=== PATIENT | male | born 1945 | race Caucasian/White ===

== ENCOUNTER 2016-10-11 15:31 | Inpatient (IN) | payer OTHER, MEDICARE ==
[~2016-10-11] VITALS: Ht 182.9 cm; Wt 82.3 kg
[~2016-10-11 15:31] MED LIST: ED B10TA PO; GABA600T PO; HYDR10SO PO; PROS5TAB2 PO; TAMS0.4C67 PO
[2016-10-11 15:41] VITALS: BP 156/88; PULSE 63; RESP 16; TEMP 97.6; O2SAT 99
[2016-10-11] MEDS ORDERED: BACL10TA PO (16:00)
[2016-10-11] MEDS ORDERED: HYDR-4107 PO (16:00)
[2016-10-11] MEDS ORDERED: TAMS5CAP PO (16:00)
[2016-10-11] MEDS ORDERED: PRED10 PO (16:00)
[2016-10-11] MEDS ORDERED: ANTIDEPRESSANT PO (16:00)
[2016-10-11] MEDS ORDERED: SODIUM CHLORIDE 0.9% FLUSH 5 ML FLUSH IVF PRN (16:15)
[2016-10-11] MEDS ORDERED: MORPHINE SULFATE 4 MG/ML INJ IV PUSH ONE (16:15)
[2016-10-11 16:20] VITALS: O2SAT 99
--- NOTE | 2016-10-11 16:20 | PD ---
HPI Chief Complaint: Musculoskeletal Complaint Time Seen by Provider: 15:50 Travel History International Travel<30 days: No Contact w/Intl Traveler<30days: No Traveled to known affect area: No History of Present Illness HPI Patient is a 70-year-old male with history of multiple myeloma who presents the emergency department with complaint of back pain. Patient has been having increasing back pain and on a bone scan to evaluate for other for multiple myeloma he had a lesion in the right upper lobe of the lung. On October [address] of the chest that showed a mass in the right lung that extends into the right T4 vertebral body and had some lytic destruction of the ribs. Patient was scheduled for outpatient MRI on 10/04 that showed a 8.5 x 7.5 right upper lobe lung mass that extends into the T2, T3, T4 vertebral body and into the thoracic spinal canal through the neural foramina displacing the thoracic cord consistent with Pancoast tumor. Patient's pain has been uncontrolled at home. He describes this as a burning type pain, numbness and tingling that radiates from the right back around the right scapular region. Patient's pain is not controlled, he is unable to wait until his appointment with Dr. Lang in 2 days prompting his ER visit. PFSH Past Medical History Cancer: Yes (Multiple myeloma) Cardiovascular Problems: No Chemotherapy: Yes (10/15/15) Diabetes: No Endocrine: No Genitourinary: No Hepatitis: No Hiatal Hernia: No Immune Disorder: No Musculoskeletal: Yes (CHRONIC LEG/FEET PAIN) Neurologic: Yes (Neuropathy) Psychiatric: No Respiratory: Yes (LUNG CANCER) Thyroid Disease: No Influenza Vaccination: No Past Surgical History Abdominal Surgery: No AICD: No Body Medical Devices: METAL - LUMBAR Cardiac Surgery: No Ear Surgery: No Endocrine Surgery: No Eye Surgery: Yes (CATARACTS) Genitourinary Surgery: No Gynecologic Surgery: No Joint Replacement: No Oral Surgery: Yes Pacemaker: No Thoracic Surgery: No Other Surgery: Yes Social History Alcohol Use: No Tobacco Use: No Substance Use: No Allergies-Medications (Allergen,Severity, Reaction): Coded Allergies: No Known Allergies (Unverified , 11/13/15) Reported Meds & Prescriptions Reported Meds & Active Scripts Active Reported [Antidepressant] 1 Tab PO DAILY Prednisone 10 Mg Tab 10 Mg PO DAILY Flomax (Tamsulosin HCl) 0.4 Mg Cap 0.4 Mg PO HS Hydrocodone-Acetaminophen 5-300 Mg Tab 1 Tab PO Q4H PRN Baclofen 10 Mg Tab 10 Mg PO TID Review of Systems Except as stated in HPI: all other systems reviewed are Neg Physical Exam Narrative GENERAL: Well-appearing elderly male in no acute distress SKIN: Warm and dry. HEAD: Normocephalic. EYES: No scleral icterus. No injection or drainage. ENT: Mucous membranes pink and moist. NECK: Supple CARDIOVASCULAR: Regular rate and rhythm. No murmur appreciated. RESPIRATORY: No accessory muscle use. Clear to auscultation. Breath sounds equal bilaterally. GASTROINTESTINAL: Abdomen soft, non-tender, nondistended. MUSCULOSKELETAL: No midline tenderness to palpation of the thoracic or lumbar spine. Patient complains of pain in the right scapular region. No skin changes. NEUROLOGICAL: Awake and alert. No obvious cranial nerve deficits. Motor grossly within normal limits. Sensation intact. Normal speech. PSYCHIATRIC: Appropriate mood and affect; insight and judgment normal. Data Data Last Documented VS Vital Signs Date Time Temp Pulse Resp B/P Pulse Ox O2 Delivery O2 Flow Rate FiO2 10/11/16 15:41 97.6 63 16 156/88 99 Orders Morphine Inj (Morphine Inj) (10/11/16 16:15) Basic Metabolic Panel (Bmp) (10/11/16 16:02) Complete Blood Count With Diff (10/11/16 16:02) Iv Access Insert/Monitor (10/11/16 16:02) Oximetry (10/11/16 16:02) Sodium Chloride 0.9% Flush (Ns Flush) (10/11/16 16:15) Consult Medical Oncology (10/11/16 ) Consult Radiation Oncology (10/11/16 ) Consult Neurosurgery (10/11/16 ) Prothrombin Time / Inr (Pt) (10/11/16 16:08) Act Partial Throm Time (Ptt) (10/11/16 16:08) Vital Signs (Adult) .On admission (10/11/16 16:08) Ct Lung Biopsy (10/11/16 ) Npo After Midnight W/ Po Meds (10/11/16 Dinner) MDM Medical Decision Making Medical Screen Exam Complete: Yes Emergency Medical Condition: Yes Differential Diagnosis 70-year-old male with history of multiple myeloma here with new right upper lobe lung mass that has spread into the posterior rib cage, thoracic vertebral bodies and spinal canal is compressing the spinal cord here with poorly controlled pain. Patient describes a neuropathic type pain that is no doubt from his spinal cord compression, neuroforaminal compression. Narrative Course I spoke with Dr. Lang, who agrees that patient's pain will be best managed with induction chemotherapy, radiation therapy and would like patient admitted for CT-guided biopsy, neurosurgery consultation. Morphine was ordered for pain control, consult for neurosurgery, medical oncology, radiation oncology were placed and patient will be admitted to medicine for further management. Diagnosis Primary Impression: Lung mass Additional Impressions: Thoracic spine tumor Neuropathic pain Admitting Information Admitting Physician Requests: Admit Shanika Diaz MD Oct 11, 2016 16:20
[2016-10-11] MEDS ORDERED: ACETAMINOPHEN 325 MG TAB PO PRN (16:30)
[2016-10-11] MEDS ORDERED: BISACODYL 10 MG SUPP PR PRN (16:30)
[2016-10-11] MEDS ORDERED: NALOXONE HCL 0.4 MG/ML AMP IV PRN (16:30)
[2016-10-11] MEDS ORDERED: ACETAMINOPHEN/HYDROcodone 325 MG/5 MG TAB PO PRN (16:30)
[2016-10-11 16:32] LABS: AUTOMATED NEUTROPHIL # 8.3 TH/MM3 (1.8-7.7); BASOPHIL % 0.1 % (0.0-2.0); EOSINOPHIL % 0.2 % (0.0-4.0); HEMATOCRIT 41.8 % (39.0-51.0); LYMPH % 16.1 % (9.0-44.0); LYMPHOCYTE # 1.8 TH/MM3 (1.0-4.8); MEAN CELL VOLUME 94.5 FL (80.0-100.0); MEAN CORPUSCULAR HEMOGLOBIN 31.4 PG (27.0-34.0); MEAN CORPUSCULAR HGB CONC 33.3 % (32.0-36.0); MONO % 11.8 % (0.0-8.0); NEUT % 71.8 % (16.0-70.0); PLATELET COUNT 242 TH/MM3 (150-450); RED BLOOD COUNT 4.42 MIL/MM3 (4.50-5.90); RED CELL DISTRIBUTION WIDTH 13.6 % (11.6-17.2); WHITE BLOOD COUNT 11.4 TH/MM3 (4.0-11.0)
[2016-10-11 16:38] LABS: CHLORIDE 102 MEQ/L (98-107); HEMO FLAGS AUTO DIFF; POTASSIUM 3.6 MEQ/L (3.5-5.1); SODIUM (NA) 140 MEQ/L (136-145)
[2016-10-11 16:40] LABS: ANION GAP 9 MEQ/L (5-15); BICARBONATE 29.1 MEQ/L (21.0-32.0)
[2016-10-11 16:41] LABS: APTT (PATIENT) 24.6 SEC (24.3-30.1); BLOOD UREA NITROGEN 15 MG/DL (7-18); PROTHROMBIN TIME - PATIENT 10.7 SEC (9.8-11.6)
[2016-10-11 16:44] LABS: GLOMERULAR FILTRATION RATE 121 ML/MIN (>89)
[2016-10-11 16:46] LABS: ALT (GPT) 17 U/L (12-78); AST (GOT) 19 U/L (15-37)
[2016-10-11 16:48] LABS: TOTAL BILIRUBIN ADULT 0.4 MG/DL (0.2-1.0)
[2016-10-11 16:49] LABS: ALKALINE PHOSPHATASE 61 U/L (45-117)
[2016-10-11] MEDS: SODIUM CHLOR 0.9% 1000 ML INJ 1,000 ML IV SCH (16:53)
[2016-10-11 17:32] LABS: BANDS 5 % (0-6); NEUTROPHIL # MANUAL DIFF 8.7 TH/MM3 (1.8-7.7); POLYS (SEG NEUTROPHILS) 71 % (16-70); WBC DIFF SAMPLE 100
[2016-10-11 17:33] LABS: PLATELET ESTIMATE SMEAR NORMAL (NORMAL); PLATELET MORPHOLOGY NORMAL (NORMAL); SCAN/DIFF FINAL DIFF MANUAL
[2016-10-11] MEDS: BACLOFEN 10 MG TAB PO SCH (17:42)
[2016-10-11] MEDS ORDERED: fentaNYL 25 MCG/HR PATCH TD SCH (18:00)
[2016-10-11 18:09] VITALS: BP 171/78; PULSE 63; RESP 18; O2SAT 96
[2016-10-11] MEDS: PANTOPRAZOLE SODIUM 40 MG VIAL IV PUSH SCH (18:18)
[2016-10-11] MEDS: DEXAMETHASONE SOD PHOS 4 MG/ML VIAL IV PUSH SCH ×2 (18:18→23:22)
[2016-10-11] MEDS: GABAPENTIN 400 MG CAP PO SCH (18:43)
[2016-10-11 19:15] VITALS: BP 141/77; PULSE 68; RESP 18; TEMP 97.7; O2SAT 98
[2016-10-11] MEDS: ACETAMINOPHEN/HYDROcodone 325 MG/5 MG TAB PO PRN ×2 (19:45→23:23)
[2016-10-11 21:00] VITALS: PULSE 65
[2016-10-11] MEDS: SODIUM CHLORIDE 0.9% FLUSH 5 ML FLUSH FLUSH SCH (21:00)
[2016-10-11] MEDS: TEMAZEPAM 15 MG CAP PO PRN (21:08)
[2016-10-11] MEDS: TAMSULOSIN HCL 0.4 MG CAP PO SCH (21:08)
[2016-10-11] MEDS: MORPHINE SULFATE 4 MG/ML INJ IV PRN (21:09)
[2016-10-11 21:30] VITALS: BP 142/71; PULSE 61; RESP 18; TEMP 97.1; O2SAT 98
[2016-10-12] VITALS (11 sets, daily range): BP systolic 101–136; BP diastolic 54–77; PULSE 55–67; RESP 16–18; TEMP 96.1–98.4; O2SAT 93–100
[2016-10-12] MEDS: MORPHINE SULFATE 4 MG/ML INJ IV PRN ×2 (00:05→23:20)
[2016-10-12] MEDS: DEXAMETHASONE SOD PHOS 4 MG/ML VIAL IV PUSH SCH ×4 (06:15→23:24)
[2016-10-12] MEDS: ACETAMINOPHEN/HYDROcodone 325 MG/5 MG TAB PO PRN (06:15)
[2016-10-12] MEDS: SODIUM CHLOR 0.9% 1000 ML INJ 1,000 ML IV SCH ×2 (06:15→16:23)
[2016-10-12] MEDS: SODIUM CHLORIDE 0.9% FLUSH 5 ML FLUSH FLUSH SCH ×2 (08:55→21:00)
[2016-10-12] MEDS: GABAPENTIN 400 MG CAP PO SCH ×3 (08:55→16:35)
[2016-10-12] MEDS: BACLOFEN 10 MG TAB PO SCH ×3 (08:55→16:36)
[2016-10-12] MEDS ORDERED: INFLUENZA VIRUS VACCINE (QUADRIVALENT) 0.5 ML SYR IM ONE (09:00)
--- NOTE | 2016-10-12 09:22 | MB ---
cc: SIMON HICKEY M.D. DATE OF CONSULTATION 10/11/2016 REASON FOR CONSULTATION Consult requested by Dr. Vega, ER physician, for evaluation of Pancoast tumor. HISTORY OF PRESENT ILLNESS This is a 70-year-old very pleasant male. Recently he transferred his oncology care to me from Dr. Poe. I saw him for the first time on September 17 for followup of multiple myeloma. The patient was diagnosed with multiple myeloma in June 2013. He has lambda light chain multiple myeloma. He was treated with Velcade and Decadron x four cycles with an excellent response. He was kept on observation. Subsequently, the patient had developed neuropathy and he had a biopsy of the sural nerve at [facility] in [place]. This showed amyloidosis. The patient was treated with Alkeran and Prednisone in July 2015. This was continued up until last year July, the Alkeran was not available on the market. He was placed on Cytoxan and Decadron which did not work for his myeloma. When I saw him on September 17, he told me that the Alkeran is available on the market again and I wrote him a prescription for Alkeran and prednisone which he start taking around September 20. I had ordered the skeletal survey for myeloma followup. There were no lytic lesions noted. However, incidentally showed a right upper lobe lung mass. I had ordered the CT scan of the chest. The patient had an appointment with me last week Tuesday with a followup of a CT scan. Unfortunately, the CT scan of the chest was cancelled by insurance, therefore, he cancelled his appointment with me as well. The patient had an MRI of the spine which showed a large right upper lobe lung mass. He subsequently had a CT scan of the chest as well which showed a Pancoast tumor. The patient had an appointment with me the day after tomorrow in our [place] office. The patient came to the emergency room complaining of severe pain. His pain is quite bad. He has been taking narcotics which are not controlling his pain. When he came to the emergency room, Dr. Vega evaluated the case. She had contacted me. I advised her the patient should be admitted to the hospital for further workup. He would need neurosurgery and radiation oncology consult. The patient is transferred to [facility] from [facility]. I am seeing him now on the floor. The patient has been complaining of neck pain. He has peripheral neuropathy. He is having difficulty walking. He has been lately complaining of weakness of his lower legs. The rest of the review of systems is negative. PAST MEDICAL HISTORY 1. Arthritis 2. BPH 3. COPD 4. Diabetes mellitus 5. Hemorrhoids 6. Hypercholesterolemia 7. Osteopenia 8. Multiple myeloma 9. Colon cancer and now he has possible lung cancer. PAST SURGICAL HISTORY 1. Cataract 2. colonoscopy 3. Nasal surgery 4. Lumbar fusion ALLERGIES None MEDICATIONS Please see EMR. FAMILY HISTORY Mother from [facility]. Father from bladder cancer. The patient has four brothers, one alive, three . One brother from lung cancer. Another brother from [place] and a third brother from metastatic cancer of unknown type. The patient has two sisters, one sons and one daughter all alive and well. SOCIAL HISTORY The patient is . 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 He used to smoke cigarettes one pack a day for 20 years, quit two years ago. He does not drink alcohol. PHYSICAL EXAM This is a well-developed, well-nourished male in no apparent distress. VITAL SIGNS: Temperature 97.2, heart rate 68, blood pressure 141/77. HEENT: PERRLA, EOMI, anicteric. No oral lesions are noted. NECK: Supple. There is no cervical, supraclavicular or axillary lymphadenopathy noted. LUNGS: Clear. No wheezing, rhonchi or rales. HEART: Regular rate and rhythm. ABDOMEN: Soft and nontender. No hepatosplenomegaly. EXTREMITIES: No pedal edema. NEUROLOGIC: Awake, alert, and oriented times threes. SKIN: No significant lesions are noted. ASSESSMENT 1. Multiple myeloma currently on Alkeran and prednisone therapy. 2. Right upper lobe lung mass infiltrating the cervical spine. This is most likely consistent with lung cancer. PLAN I have reviewed his available records and I have had an extensive discussion with the patient and his son and daughter. The patient has a large right upper lobe lung mass noted on the CT of the chest, as well as MRI of the spine. He had a CT of the chest last week Tuesday which showed a mass in the right upper lobe of the lung that extends into the right T4 vertebral body and has some lytic destruction of the ribs. He had an MRI of the spine on October 04 that shows an 8.5 x 7.5 cm right upper lobe lung mass that extends into the T2, T3 and T4 vertebral body and into the thoracic spinal canal through the neural foramina displacing a thoracic cord consistent with Pancoast tumor. The patient has been on pain medications which are not controlling his pain and he is now appropriately admitted to the hospital for pain management as well as workup for the Pancoast tumor. I will request invasive radiologist for CT-guided core needle biopsy of the right upper lobe lung mass for tissue diagnosis. The patient will need radiation oncology consult as well as neurosurgical consult for further evaluation. The patient was started on Decadron 4 mg IV q6 in the emergency room. Once we have the tissue diagnosis, then we will discuss with the patient and the family regarding the treatment plan. The patient will need a PET scan as an outpatient and an MRI of the brain to stage his lung cancer. Further recommendations to follow. Thank you for asking my opinion. MD XAVI Singletary/HEATH /9:13 PM /9:08 AM MTDFidelia
--- NOTE | 2016-10-12 09:32 | HHI.HP ---
HPI Service [facility] Primary Care Physician Mk Dhillon MD Admission Diagnosis right upper lobe lung mass extending into T spine/canal Diagnoses: Travel History International Travel<30 Days: No Contact w/Intl Traveler <30 Da: No Traveled to Known Affected Are: No History of Present Illness 70-year-old male with a medical history significant for multiple myeloma undergoing treatment, amyloidosis, osteoarthritis who presented to the emergency room with intractable pain of the right shoulder extending all the way to his lower back. He described the pain as severe and debilitating. The patient had an MRI which showed an 8 cm epidural extension. There is also a newly discovered right upper lobe lung mass extending into the thoracic vertebrae with lytic lesions. Given the patient's intractable pain and new findings of the lung mass. He is being admitted for pain control and further workup with oncology and neurosurgery consultation. Review of Systems Constitutional: DENIES: Fever, Chills Endocrine: DENIES: Polyuria Eyes: DENIES: Blurred vision Respiratory: DENIES: Cough, Shortness of breath Cardiovascular: DENIES: Chest pain Genitourinary: DENIES: Dysuria Musculoskeletal: COMPLAINS OF: Joint pain, Muscle aches, Back pain Neurologic: DENIES: Localized weakness Except as stated in HPI: all other systems reviewed are Neg Past Family Social History Past Medical History Multiple myeloma, undergoing treatment with chemotherapy and steroids. Amyloidosis Osteoarthritis Hyperlipidemia Hemorrhoids. BPH Past Surgical History Hemorrhoidectomy in 1985 Lumbar fusion in 1993 Nose surgery Reported Medications Reported Meds & Active Scripts Active Reported [Antidepressant] 1 Tab PO DAILY Prednisone 10 Mg Tab 10 Mg PO DAILY Flomax (Tamsulosin HCl) 0.4 Mg Cap 0.4 Mg PO HS Hydrocodone-Acetaminophen 5-300 Mg Tab 1 Tab PO Q4H PRN Baclofen 10 Mg Tab 10 Mg PO TID Allergies: Coded Allergies: No Known Allergies (Unverified , 11/13/15) Family History Father is . He has a history of bladder cancer Patient has 2 brothers, one of them with history of lung cancer. Social History Patient smoke 1 pack per day for 50 years but he quit 2 years ago. He denies alcohol or illicit drug use. Physical Exam Vital Signs Vital Signs Date Time Temp Pulse Resp B/P Pulse Ox O2 Delivery O2 Flow Rate FiO2 10/12/16 08:00 96.7 58 16 121/65 96 10/12/16 05:00 97.1 58 18 122/77 100 10/12/16 00:00 97.3 60 18 136/71 100 10/11/16 21:30 97.1 61 18 142/71 98 10/11/16 21:00 65 10/11/16 19:15 18 10/11/16 19:15 97.7 68 18 141/77 98 Room Air 10/11/16 18:09 63 18 171/78 96 Room Air 10/11/16 16:20 99 Room Air 10/11/16 15:41 97.6 63 16 156/88 99 Physical Exam GENERAL: This is a well-nourished, well-developed patient, in no apparent distress. SKIN: No rashes, ecchymoses or lesions. Cool and dry. HEAD: Atraumatic. Normocephalic. No temporal or scalp tenderness. EYES: Pupils equal round and reactive. Extraocular motions intact. No scleral icterus. No injection or drainage. ENT: Nose without bleeding, purulent drainage or septal hematoma. Throat without erythema, tonsillar hypertrophy or exudate. Uvula midline. Airway patent. NECK: Trachea midline. No JVD or lymphadenopathy. Supple, nontender, no meningeal signs. CARDIOVASCULAR: Regular rate and rhythm without murmurs, gallops, or rubs. RESPIRATORY: Clear to auscultation. Breath sounds equal bilaterally. No wheezes , rales, or rhonchi. GASTROINTESTINAL: Abdomen soft, non-tender, nondistended. No hepato-splenomegaly , or palpable masses. No guarding. MUSCULOSKELETAL: Extremities without clubbing, cyanosis, or edema. Right upper extremity 4 out of 5 strength. All other extremities 5 out of 5. NEUROLOGICAL: Awake and alert. Normal speech. Laboratory Laboratory Tests Test 10/11/16 16:18 White Blood Count 11.4 Red Blood Count 4.42 Hemoglobin 13.9 Hematocrit 41.8 Mean Corpuscular Volume 94.5 Mean Corpuscular Hemoglobin 31.4 Mean Corpuscular Hemoglobin 33.3 Concent Red Cell Distribution Width 13.6 Platelet Count 242 Mean Platelet Volume 8.6 Neutrophils (%) (Auto) 71.8 Lymphocytes (%) (Auto) 16.1 Monocytes (%) (Auto) 11.8 Eosinophils (%) (Auto) 0.2 Basophils (%) (Auto) 0.1 Neutrophils # (Auto) 8.3 Lymphocytes # (Auto) 1.8 Monocytes # (Auto) 1.3 Eosinophils # (Auto) 0.0 Basophils # (Auto) 0.0 CBC Comment AUTO DIFF Differential Total Cells 100 Counted Neutrophils % (Manual) 71 Band Neutrophils % 5 Lymphocytes % 12 Monocytes % 12 Neutrophils # (Manual) 8.7 Differential Comment FINAL DIFF MANUAL Platelet Estimate NORMAL Platelet Morphology Comment NORMAL Red Cell Morphology Comment NORMAL Prothrombin Time 10.7 Prothromb Time International 1.0 Ratio Activated Partial 24.6 Thromboplast Time Sodium Level 140 Potassium Level 3.6 Chloride Level 102 Carbon Dioxide Level 29.1 Anion Gap 9 Blood Urea Nitrogen 15 Creatinine 0.65 Estimat Glomerular Filtration 121 Rate Random Glucose 88 Calcium Level 9.8 Total Bilirubin 0.4 Aspartate Amino Transf 19 (AST/SGOT) Alanine Aminotransferase 17 (ALT/SGPT) Alkaline Phosphatase 61 Total Protein 7.3 Albumin 3.8 Result Diagram: 10/11/16 1618 10/11/16 1618 Assessment and Plan Assessment and Plan 70 year-old male with: Pancoast tumor: CT of the chest outpatient showed a right upper lobe lung mass extending into the vertebral body with some lytic destruction of the ribs. Outpatient MRI of the spine with reports of a 8 x 7 cm RUL lung mass that extends into the T2, T3 and T4 vertebral body and into the thoracic spinal canal through the neural foramina displacing a thoracic cord consistent with Pancoast tumor. - Appreciate oncology and neurosurgery following. Plan for CT-guided biopsy of the right upper lung mass - Pain is better controlled on Decadron, gabapentin, baclofen, Lortab, fentanyl , and morphine IV as needed. Continue to monitor. Multiple myeloma: Followed by oncology. He was restarted on Alkeran and prednisone in August. 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 Continue home medications as indicated. He denies any history of diabetes. Physician Certification 2 Midnight Certification Type: Admission for Inpatient Services Order for Inpatient Services The services are ordered in accordance with Medicare regulations or non- Medicare payer requirements, as applicable. In the case of services not specified as inpatient-only, they are appropriately provided as inpatient services in accordance with the 2-midnight benchmark. Estimated LOS (days): 3 days is the estimated time the patient will need to remain in the hospital, assuming treatment plan goals are met and no additional complications. Post-Hospital Plan: Not yet determined Ekaterina Aguirre MD Oct 12, 2016 09:32
--- NOTE | 2016-10-12 10:41 | PD.ONC.PN ---
Subjective Subjective Remarks Afebrile overnight. Patient states pain is well controlled today. He is eager to know what the plan is for biopsy. Objective Data Date Time Temp Pulse Resp B/P Pulse Ox O2 Delivery O2 Flow Rate FiO2 10/12/16 08:00 96.7 58 16 121/65 96 10/12/16 05:00 97.1 58 18 122/77 100 10/12/16 00:00 97.3 60 18 136/71 100 10/11/16 21:30 97.1 61 18 142/71 98 10/11/16 21:00 65 10/11/16 19:15 18 10/11/16 19:15 97.7 68 18 141/77 98 Room Air 10/11/16 18:09 63 18 171/78 96 Room Air 10/11/16 16:20 99 Room Air 10/11/16 15:41 97.6 63 16 156/88 99 10/12/16 10/12/16 10/12/16 07:00 15:00 23:00 Intake Total 430 ml Output Total 900 ml Balance -900 ml 430 ml Result Diagram: 10/11/16 1618 10/11/16 1618 Laboratory Results Laboratory Tests Test 10/11/16 16:18 White Blood Count 11.4 TH/MM3 Red Blood Count 4.42 MIL/MM3 Hemoglobin 13.9 GM/DL Hematocrit 41.8 % Mean Corpuscular Volume 94.5 FL Mean Corpuscular Hemoglobin 31.4 PG Mean Corpuscular Hemoglobin 33.3 % Concent Red Cell Distribution Width 13.6 % Platelet Count 242 TH/MM3 Mean Platelet Volume 8.6 FL Neutrophils (%) (Auto) 71.8 % Lymphocytes (%) (Auto) 16.1 % Monocytes (%) (Auto) 11.8 % Eosinophils (%) (Auto) 0.2 % Basophils (%) (Auto) 0.1 % Neutrophils # (Auto) 8.3 TH/MM3 Lymphocytes # (Auto) 1.8 TH/MM3 Monocytes # (Auto) 1.3 TH/MM3 Eosinophils # (Auto) 0.0 TH/MM3 Basophils # (Auto) 0.0 TH/MM3 CBC Comment AUTO DIFF Differential Total Cells 100 Counted Neutrophils % (Manual) 71 % Band Neutrophils % 5 % Lymphocytes % 12 % Monocytes % 12 % Neutrophils # (Manual) 8.7 TH/MM3 Differential Comment FINAL DIFF MANUAL Platelet Estimate NORMAL Platelet Morphology Comment NORMAL Red Cell Morphology Comment NORMAL Prothrombin Time 10.7 SEC Prothromb Time International 1.0 RATIO Ratio Activated Partial 24.6 SEC Thromboplast Time Sodium Level 140 MEQ/L Potassium Level 3.6 MEQ/L Chloride Level 102 MEQ/L Carbon Dioxide Level 29.1 MEQ/L Anion Gap 9 MEQ/L Blood Urea Nitrogen 15 MG/DL Creatinine 0.65 MG/DL Estimat Glomerular Filtration 121 ML/MIN Rate Random Glucose 88 MG/DL Calcium Level 9.8 MG/DL Total Bilirubin 0.4 MG/DL Aspartate Amino Transf 19 U/L (AST/SGOT) Alanine Aminotransferase 17 U/L (ALT/SGPT) Alkaline Phosphatase 61 U/L Total Protein 7.3 GM/DL Albumin 3.8 GM/DL Administered Medications Medications (Trade) Dose Ordered Sig/Garry Route PRN Reason Start Time Stop Time Status Last Admin Dose Admin Sodium Chloride (NS 1000 ml Inj) 1,000 ml @ 83 mls/hr Q12H3M IV 10/11/16 16:17 10/12/16 06:15 IV Flush (NS Flush) 2 ml BID FLUSH 10/11/16 21:00 10/12/16 08:55 Temazepam (Restoril) 15 mg HS PRN PO INSOMNIA 10/11/16 16:30 10/11/16 21:08 Fentanyl (Duragesic 25 Mcg Patch.72 Hr) 1 patch Q3D TD 10/11/16 18:00 10/11/16 17:46 Acetaminophen/ Hydrocodone Bitart (Montgomery 5-325 Mg) 2 tab Q4H PRN PO PAIN SCALE 6 TO 10 10/11/16 16:30 10/12/16 06:15 Morphine Sulfate (Morphine Inj) 2 mg Q3H PRN IV BREAKTHROUGH PAIN 10/11/16 16:45 10/12/16 00:05 Baclofen (Lioresal) 10 mg TID PO 10/11/16 18:00 10/12/16 08:55 Tamsulosin HCl (Flomax) 0.4 mg HS PO 10/11/16 21:00 10/11/16 21:08 Dexamethasone Sodium Phosphate (Decadron Inj) 4 mg Q6HR IV PUSH 10/11/16 18:00 10/12/16 06:15 Pantoprazole Sodium (Protonix Inj) 40 mg Q24H IV PUSH 10/11/16 18:00 10/11/16 18:18 Gabapentin (Neurontin) 400 mg TID PO 10/11/16 18:00 10/12/16 08:55 Objective Remarks GENERAL: Elderly male, lying in bed, resting. SKIN: Warm and dry. HEAD: Normocephalic. EYES: No injection or drainage. NECK: Supple, trachea midline. EXTREMITIES: No cyanosis MUSCULOSKELETAL: Adequate muscle tone. NEUROLOGICAL: awake and alert, normal speech. Assessment/Plan Problem List: (1) Lung mass Status: Acute Plan: --Right upper lobe lung mass infiltrating the cervical spine. most consistent with lung cancer. --CT chest, last week showed a mass in the right upper lobe of the lung that extends into the right T4 vertebral body and has some lytic destruction of the ribs. --MRI spine on October 04 showed 8.5 x 7.5 cm RUL lung mass that extends into the T2, T3 and T4 vertebral body and into the thoracic spinal canal through the neural foramina displacing a thoracic cord consistent with Pancoast tumor. --awaiting CT guided core needle biopsy of RUL lung mass for tissue diagnosis --Radiation oncology consulted --Neurosurgery consulted --on Decadron 4mg IV q6 --will need PET scan outpatient as well as MRI brain for staging. (2) Multiple myeloma Status: Acute Plan: -->currently on Alkeran + Prednisone History: --first diagnosed in June 2013 --+lambda light chain MM --treated with Velcade + Decadron x 4 cycles -- Subsequently, developed neuropathy-->biopsy of the sural nerve showed amyloidosis. --treated with Alkeran and Prednisone from 07/2015 to 07/2016, then Alkeran d/c from market. --started on Cytoxan and Decadron--did not work --08/2016: resumed Alkeran + prednisone (3) Neuropathic pain Status: Acute Plan: --currently on Fentanyl 25mcg + Montgomery for breakthrough pain + Gabapentin + Baclofen Assessment 70y/o with suspected Pancoast tumor h/o Multiple myeloma h/o Arthritis BPH COPD Diabetes mellitus Hemorrhoids Hypercholesterolemia Osteopenia Colon cancer and now he has possible lung cancer. Attending Statement pain is better, s/p Bx RUL lung mass., path is pending. 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 d/w DR Carpenter regarding XRT and chemo. NS input noted. Most likely he will need palliative resection of the tumor pushing the cord. will D/W Dr Lewis. The exam, history, and the medical decision-making described in the above note were completed with the assistance of the mid-level provider. I reviewed and agree with the findings presented. I attest that I had a [id number] encounter with the patient on the same day, and personally performed and documented my assessment and findings in the medical record. Ana Cristina Starkey Oct 12, 2016 10:41 Alia Lang MD Oct 12, 2016 20:55
--- NOTE | 2016-10-12 11:55 | PD.CONS ---
HPI Service Neurosurgery Consult Requested By ED Reason for Consult Pancoast tumor Primary Care Physician Mk Dhillon MD History of Present Illness 70 yr old with hx of multiple myeloma and amyloidosis with severe spondylosis and peripheral neuropathy presented to the ED with severe pain in the right shoulder radiating to the face and right arm. He had an MRI of the thoracic spine from 1 week ago ordered by his new oncologist Dr Lang which showed a large 7 to 8 cm from T2 to T4 with epidural and pleural extension. He is neurologically stable with no miosis, no ptosis, no new arm numbness and no new weakness in the hip flexors but the pain was so severe that he could not eat or get OOB. He is now improved on decadron and gabapentin. Review of Systems Constitutional: COMPLAINS OF: Change in appetite, DENIES: Diaphoretic episodes , Fatigue, Fever, Weight gain, Weight loss, Chills, Dizziness, Night Sweats Endocrine: DENIES: Heat/cold intolerance, Polydipsia, Polyuria, Polyphagia Eyes: DENIES: Blurred vision, Diplopia, Eye inflammation, Eye pain, Vision loss , Photosensitivity, Double Vision Ears, nose, mouth, throat: DENIES: Tinnitus, Hearing loss, Vertigo, Nasal discharge, Oral lesions, Throat pain, Hoarseness, Ear Pain, Running Nose, Epistaxis, Sinus Pain, Toothache, Odynophagia Respiratory: DENIES: Apneas, Cough, Snoring, Wheezing, Hemoptysis, Sputum production, Shortness of breath Cardiovascular: COMPLAINS OF: Chest pain, DENIES: Palpitations, Syncope, Dyspnea on Exertion, PND, Lower Extremity Edema, Orthopnea, Claudication Gastrointestinal: DENIES: Abdominal pain, Black stools, Bloody stools, Constipation, Diarrhea, Nausea, Vomiting, Difficulty Swallowing, Anorexia Genitourinary: DENIES: Sexual dysfunction, Urinary frequency, Urinary incontinence, Urgency, Hematuria, Dysuria, Nocturia, Penile Discharge, Testicular Pain, Testicular Swelling Musculoskeletal: COMPLAINS OF: Neck pain Integumentary: DENIES: Abnormal pigmentation, Nail changes, Pruritus, Rash Hematologic/lymphatic: DENIES: Bruising, Lymphadenopathy Immunologic/allergic: DENIES: Eczema, Urticaria Neurologic: COMPLAINS OF: Abnormal gait (wheelchair bound from the neuropathy and amyloidosis), Paresthesias, Poor Balance Psychiatric: DENIES: Anxiety, Confusion, Mood changes, Depression, Hallucinations, Agitation, Suicidal Ideation, Homicidal Ideation, Delusions Past Family Social History Allergies: Coded Allergies: No Known Allergies (Unverified , 11/13/15) Past Medical History MM light chain diagnosed in 2012, responded well after diagnosis with velcade and decadron, has been off chemo for the past 3 months due to unsuccessful response to alternate chemo with cytoxan and decadron Amyloidosis diagnosed with sural nerve bx in 2014, has bee crippling. Past Surgical History Spinal fusion Reported Medications Reported Meds & Active Scripts Active Reported [Antidepressant] 1 Tab PO DAILY Prednisone 10 Mg Tab 10 Mg PO DAILY Flomax (Tamsulosin HCl) 0.4 Mg Cap 0.4 Mg PO HS Hydrocodone-Acetaminophen 5-300 Mg Tab 1 Tab PO Q4H PRN Baclofen 10 Mg Tab 10 Mg PO TID Family History Brother ad lung CA Social History , lives with family, quit tob 2 yrs ago Physical Exam Vital Signs Vital Signs Date Time Temp Pulse Resp B/P Pulse Ox O2 Delivery O2 Flow Rate FiO2 10/12/16 08:00 96.7 58 16 121/65 96 10/12/16 05:00 97.1 58 18 122/77 100 10/12/16 00:00 97.3 60 18 136/71 100 10/11/16 21:30 97.1 61 18 142/71 98 10/11/16 21:00 65 10/11/16 19:15 18 10/11/16 19:15 97.7 68 18 141/77 98 Room Air 10/11/16 18:09 63 18 171/78 96 Room Air 10/11/16 16:20 99 Room Air 10/11/16 15:41 97.6 63 16 156/88 99 Physical Exam Pleasant gentleman, oriented x 3, pupils 2mm equal, no enophthalmos, no meiosis , no dryness of the right eye, face symmetric, attentiona nd mood appropriate, Neck supple, Dense numbness in the hands and feet from neuropathy, otherwise sensory change from T2 to T6 anterior chest on the right only Motor 4/5 in the delt/bic/tri, 5/5 in both hip flexors, bridger foot drop lond standing, weakness of IO long standing. Skin dry, abrasions from braces on both shins, hyporeflexic throughout, no clonus, no spasticity. abd soft NT, RRR, lungs CTA Laboratory Laboratory Tests Test 10/11/16 16:18 White Blood Count 11.4 Red Blood Count 4.42 Hemoglobin 13.9 Hematocrit 41.8 Mean Corpuscular Volume 94.5 Mean Corpuscular Hemoglobin 31.4 Mean Corpuscular Hemoglobin 33.3 Concent Red Cell Distribution Width 13.6 Platelet Count 242 Mean Platelet Volume 8.6 Neutrophils (%) (Auto) 71.8 Lymphocytes (%) (Auto) 16.1 Monocytes (%) (Auto) 11.8 Eosinophils (%) (Auto) 0.2 Basophils (%) (Auto) 0.1 Neutrophils # (Auto) 8.3 Lymphocytes # (Auto) 1.8 Monocytes # (Auto) 1.3 Eosinophils # (Auto) 0.0 Basophils # (Auto) 0.0 CBC Comment AUTO DIFF Differential Total Cells 100 Counted Neutrophils % (Manual) 71 Band Neutrophils % 5 Lymphocytes % 12 Monocytes % 12 Neutrophils # (Manual) 8.7 Differential Comment FINAL DIFF MANUAL Platelet Estimate NORMAL Platelet Morphology Comment NORMAL Red Cell Morphology Comment NORMAL Prothrombin Time 10.7 Prothromb Time International 1.0 Ratio Activated Partial 24.6 Thromboplast Time Sodium Level 140 Potassium Level 3.6 Chloride Level 102 Carbon Dioxide Level 29.1 Anion Gap 9 Blood Urea Nitrogen 15 Creatinine 0.65 Estimat Glomerular Filtration 121 Rate Random Glucose 88 Calcium Level 9.8 Total Bilirubin 0.4 Aspartate Amino Transf 19 (AST/SGOT) Alanine Aminotransferase 17 (ALT/SGPT) Alkaline Phosphatase 61 Total Protein 7.3 Albumin 3.8 Result Diagram: 10/11/16 1618 10/11/16 1618 Imaging Outside MRI sows a right lung mass with epidural extension to the cord from T2 to T4, as well as pleural invasion. Spinal stenosis is noted at C3/4. The cord is displaced posteriorly and to the left at T3. Foraminal invasion is seen at T2 , T3, T4. There is no signal change in the discs or in the cord. Assessment and Plan Diagnosis: (1) Thoracic spine tumor Plan: A biopsy is planned today. If the lesion is radiosensitive, IMRT is planned. If the lesion is a lung CA or a sarcoma, plan resection of the epidural mass prior to RT and chemotherapy. No instability is present at this time and his pain is controlled with no new sympathetic or brachial plexus deficit. His risk of falls is high from the neuropathy itself and fall precautions are to be maintained. ICD Code: D49.2 (2) Neuropathic pain Plan: Amyloidosis, has been crippling, is the reason he is wheelchair bound at this time. ICD Code: M79.2 Zenon Aldrich Oct 12, 2016 11:55
[2016-10-12] MEDS ORDERED: LIDOCAINE 1%/EPINEPHrine 1:100,000 SOLN 20 ML VIAL ONE (12:05)
[2016-10-12] MEDS ORDERED: fentaNYL CITRATE 250 MCG/5 ML AMP ONE (12:16)
[2016-10-12] MEDS ORDERED: MIDAZOLAM HCL 5 MG/5 ML VIAL ONE (12:16)
--- NOTE | 2016-10-12 14:56 | RADRPT ---
EXAM DATE/TIME: 10/12/2016 14:32 [facility] COMPARISON: CT NEEDLE BIOPSY LUNG, RIGHT, October 12, 2016, 13:01. INDICATIONS : Post lung biopsy. MEDICAL HISTORY : Ex-smoker. SURGICAL HISTORY : None. ENCOUNTER: Initial ACUITY: 1 day PAIN SCORE: 0/10 LOCATION: Right chest FINDINGS: Portable upright expiratory view of the chest demonstrates no pneumothorax following right upper lobe pleural-based Mass biopsy. There is opacity at the apex of the right hemithorax corresponding with t he mass. CONCLUSION: No pneumothorax is present following recent right lung/pleural based mass biopsy. Perry Erazo MD on October 12, 2016 at 14:50 Board Certified Radiologist. This report was verified electronically.
--- NOTE | 2016-10-12 15:08 | RADRPT ---
EXAM DATE/TIME: 10/12/2016 13:01 [facility] COMPARISON: No previous studies available for comparison. Correlated with chest CT performed at [facility] on 10/08/16. INDICATIONS : Right lung mass SEDATION TIME: 20 minutes BIOPSY SITE: Right lung MEDICATION(S): 1.) 3 mg midazolam (Versed) IV 2.) 150 mcg fentanyl (Sublimaze) IV DEVICE(S): 1.) 17 gauge Temno core biopsy needle 2.) 18 gauge Temno core biopsy needle MEDICAL HISTORY : Chronic obstructive pulmonary disease. Diabetes mellitus type 1. Carcinoma, colon. Multiple myeloma SURGICAL HISTORY : None. ENCOUNTER: Initial ACUITY: 1 day PAIN SCORE: 0/10 LOCATION: Right chest A total of five core specimen(s) were obtained and sent to the laboratory for pathologic evaluation. PROCEDURE: 1. CT guided lung biopsy. 2. Conscious sedation with continuous EKG and oximetry monitoring. 3. EKG and oximetry remained stable throughout the procedure. Prior to the procedure informed consent was obtained. Any appropriate prior imaging studies were rev iewed. The site was prepped in a sterile fashion. Full sterile technique was used, including cap, mask, gabriela rile gloves and gown and a large sterile sheet. Hand hygiene and 2% chlorhexidine and/or betadine/al cohol prep was utilized per protocol for cutaneous antisepsis. The skin and subcutaneous tissues wer e infiltrated with local anesthetic solution. With CT guidance the pleural based mass at the right upper lobe was localized. Biopsy was performed u sing the prescribed needle as above. Adequate hemostasis was obtained with compression at the punctu re site. Follow-up CT scan reveals no pneumothorax or acute abnormality. Conscious sedation was performed with the prescribed dosages and duration as above. The patient lacy ated the procedure well and there were no complications. EKG and oximetry remained stable throughout the procedure. The patient was sent to Radiology Outpatient Unit in stable condition. CONCLUSION: Uncomplicated CT guided biopsy of the mass at the apex of the right hemithorax which may be pleural o r parenchymal. Perry Erazo MD on October 12, 2016 at 15:04 Board Certified Radiologist. This report was verified electronically.
--- NOTE | 2016-10-12 16:16 | RADRPT ---
EXAM DATE/TIME: 10/12/2016 15:42 [facility] COMPARISON: CT NEEDLE BIOPSY LUNG, RIGHT, October 12, 2016, 13:01. CHEST EXPIRATION ONLY, October 12, 2016, 14 :32. INDICATIONS : Evaluate post lung biopsy. MEDICAL HISTORY : None. SURGICAL HISTORY : None. ENCOUNTER: Initial ACUITY: 1 day PAIN SCORE: 0/10 LOCATION: chest FINDINGS: Single portable expiration view of the chest shows no pneumothorax. Right paratracheal stripe mass ag ain noted. No effusions. Left lung is clear. Heart is normal in size. The degenerative thoracic spine . CONCLUSION: No pneumothorax or effusion following lung biopsy. Bj Mendieta Jr., MD on October 12, 2016 at 16:12 Board Certified Radiologist. This report was verified electronically.
[2016-10-12] MEDS: PANTOPRAZOLE SODIUM 40 MG VIAL IV PUSH SCH (16:36)
[2016-10-12] MEDS: TAMSULOSIN HCL 0.4 MG CAP PO SCH (21:37)
[2016-10-12] MEDS: MAGNESIUM HYDROXIDE SUSP 30 ML CUP PO PRN (21:42)
[2016-10-13] VITALS: BP 127/61; PULSE 62; RESP 16; TEMP 97.3; O2SAT 97
[2016-10-13] MEDS: SODIUM CHLOR 0.9% 1000 ML INJ 1,000 ML IV SCH ×2 (01:58→13:52)
[2016-10-13 04:30] VITALS: BP 140/70; PULSE 56; RESP 16; TEMP 96.6; O2SAT 97
[2016-10-13] MEDS: DEXAMETHASONE SOD PHOS 4 MG/ML VIAL IV PUSH SCH ×4 (05:19→23:19)
[2016-10-13 07:33] LABS: HEMATOCRIT 35.5 % (39.0-51.0); MEAN CELL VOLUME 94.2 FL (80.0-100.0); MEAN CORPUSCULAR HEMOGLOBIN 31.8 PG (27.0-34.0); MEAN CORPUSCULAR HGB CONC 33.8 % (32.0-36.0); PLATELET COUNT 174 TH/MM3 (150-450); RED BLOOD COUNT 3.77 MIL/MM3 (4.50-5.90); REVIEW FLAG FINAL; WHITE BLOOD COUNT 7.8 TH/MM3 (4.0-11.0)
[2016-10-13 07:56] LABS: BICARBONATE 25.5 MEQ/L (21.0-32.0); POTASSIUM 3.9 MEQ/L (3.5-5.1)
[2016-10-13] MEDS: SODIUM CHLORIDE 0.9% FLUSH 5 ML FLUSH FLUSH SCH ×2 (08:43→21:00)
[2016-10-13] MEDS: ACETAMINOPHEN/HYDROcodone 325 MG/5 MG TAB PO PRN ×3 (08:47→23:19)
[2016-10-13] MEDS: GABAPENTIN 400 MG CAP PO SCH ×3 (08:47→17:56)
[2016-10-13] MEDS: BACLOFEN 10 MG TAB PO SCH ×3 (08:47→17:56)
--- NOTE | 2016-10-13 09:32 | MB ---
cc: SIMON LANG M.D., YANNICK Y. MD RIMPEL,KARI MCGUIRE MD,PAUL TOBAR MD, MD DATE OF CONSULTATION: 10/12/2016 DATE OF : 1945. DIAGNOSIS Multiple myeloma vs second primary on the right lung/Pancoast tumor. Stage unknown at the present time. CHIEF COMPLAINT Pain on the right lower neck and scapular area. REASON FOR VISIT The patient is being evaluated for palliative versus curative treatment options pending on tumor type. HISTORY OF PRESENT ILLNESS This is a 70-year-old male with a history of multiple myeloma that dates back to June of 2013. The patient has recently started care with Dr. Lang. The patient has history of having been treated with Velcade and Decadron for four cycles. It appears the patient had a very good response and was placed on observation. It appears that the patient developed peripheral neuropathy and was referred to [facility] for this. Nerve biopsy was done there which showed amyloidosis. At that time the patient had a bone marrow biopsy which showed increase in plasma cells of 10-15%. As a result of this he was started on Alkeran and prednisone sometime in July of 2015. The patient again had an excellent response and bone marrow biopsy in March of 2016 showed only plasma cells of 0.7%. The patient's last cycle of chemotherapy with Alkeran and prednisone was sometime in April of 2016. The patient also apparently following this had treatment with Cytoxan and Decadron. The patient has been noted to have peripheral neuropathy with numbness and tingling of the legs. The patient was admitted recently with issues of increased pain in right lower neck and scapular area and as a result of this imaging studies have been done and detected a mass which was invading into the spine at the level of the T-spine, T1 to T4. The patient says that his neurological status is stable and anything that he has, has been there for the last 2 years and denies any increasing weakness of the upper and lower extremities and no decrease in bowel or bladder function. Consult has been placed to reevaluate the patient regarding radiotherapy treatment options. I have discussed this case personally with Dr. Lang. PAST MEDICAL HISTORY Past medical history as above. Also history of: 1. Arthritis. 2. BPH. 3. COPD. 4. Diabetes type 2. 5. Hemorrhoids. 6. Hypercholesteremia. 7. Osteopenia. 8. Peripheral neuropathy. 9. Cataract removal. 10. Colonoscopy in 2012. 11. Neck node surgery in 2000. 12. Lumbar fusion 1993. MEDICATIONS Medications include: 1. Baclofen. 2. Citalopram. 3. Finasteride. 4. Tamsulosin. ALLERGIES He has no known allergies. FAMILY HISTORY Father with bladder carcinoma. One brother with lung carcinoma. Another brother with some sort of metastatic carcinoma, unknown type. SOCIAL HISTORY The patient stopped smoking about 2 years ago and smoked a pack of cigarettes for most of his life. ETOH intake denied. REVIEW OF SYSTEMS A 14-point review of systems is noted. CONSTITUTIONAL: The patient says he is doing much better. The patient states that he has not lost any weight recently, has fatigue, which has been stable. ALLERGIES: He has no allergic reaction recently. EYES: Unremarkable. ENT: Unremarkable. NECK: He has neck pain on the right side, lowest portion, no swelling, no masses. INTEGUMENTARY: Unremarkable. CARDIOVASCULAR: Unremarkable. Denies any chest pain or clinical signs of NE. RESPIRATORY: Unremarkable. Denies hemoptysis, cough, shortness of breath. GASTROINTESTINAL: Unremarkable. GENITOURINARY: Unremarkable. MUSCULOSKELETAL: The patient with weakness of lower extremities bilaterally which has been equal and not increased in the last 2 years. NEUROLOGICAL: The patient with peripheral neuropathy which has been stable and not changed. The patient denies any increase in motor function deficits. He says that whatever he has had, he has had for 2 years and has not changed. Denies any signs or clinical symptoms of stroke. PSYCHATRIC: Some depression with no suicidal thoughts. ENDOCRINE: Diabetes. HEMATOLOGICAL: Multiple myeloma. DERMATOLOGIC: Unremarkable. PHYSICAL EXAMINATION GENERAL: The patient oriented x3, in no major distress or discomfort. On evaluation his pain was under control at 2-3/10. VITAL SIGNS: Vital signs were stable per hospital chart. LUNGS: To auscultation bilateral lungs were clear to auscultation with decreased ventilatory respiratory effort which is equal and bilateral, perhaps slightly decreased on the right upper lobe. HEART: Heart was regular rate and rhythm without murmurs. NECK: Palpation of the neck and bilateral supraclavicular areas are free. ABDOMEN: Palpation of abdominal cavity reveals no hepatosplenomegaly. Palpation of the inguinal areas are free. No lower extremity edema detected. NEUROLOGIC: To neurological examination no major motor function deficit detected. There is weakness of the lower extremities which is equal and bilateral. The patient says it has been stable. The patient with no signs or symptoms of increased intracranial pressure. Cognitive functions preserved. No other positive findings. SURGICAL PATHOLOGY Pending biopsy today. RADIOLOGY MRI T-spine 10/04/2016. Impression. Large mass at the right lung apex suggestive of Pancoast tumor until proven otherwise. There is erosion of the rib cage the right lateral margin of the vertebral bodies at T2, T3 and T4. There is a right paraspinal tumor extension as well as tumor extending to the epidural space throughout the neural foramina displacing the thoracic cord. There is herniation of T12 to L1, narrowing the right lateral recess of the neural foramina. A right pleural effusion. CT of the chest 10/08/2016. Impression. A 8.7 cm right apical soft tissue mass with at least partial extension to the spinal canal at approximately T4 level. The patient with history of multiple myeloma. 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 ASSESSMENT A 70-year-old male with the diagnosis of multiple myeloma versus Pancoast tumor versus another primary. The patient is being evaluated for possible therapeutic treatment options. PLAN I had an extensive discussion with the patient in regards to his presenting disease and condition. Son and daughter were present. I have discussed this case personally today with both Dr. Lang and Dr. Aldrich. His case has been further discussed at [facility] and his CT and MRI have been reviewed. The patient is asymptomatic at this point in regards to the epidural invasion and no signs of cord compression. The patient will have a biopsy today and as soon as we have an answer, we will move forward accordingly. Dr. Aldrich is awaiting the results of the biopsy to determine need to proceed forward with decompression. Family understands that if surgery is performed then we will have to wait at least 10 days before we can any radiation to allow for tissues to heal. The family understands that radiation will be involved at some point depending on the diagnosis and the number of treatments and the doses will depend on the diagnosis. I discussed the merits of the radiation therapy with the patient and family, possible techniques. We discussed side effects and complications to include but not limited to weakness and fatigue, decreased blood counts, edema, skin necrosis, difficulty and pain when swallowing, esophageal strictures that may require dilation, lung damage, lung fibrosis, lung pneumonitis or possibility becoming oxygen-dependent, could become oxygen criple, bone damage and rib fracture, costochondritis, nerve damage, spinal cord damage, brachial plexus damage. They understand I will have to treat both the mass in the spinal cord area, the doses to the spinal cord will not be able to be delivered as high as I would like due to the tolerance, so most of the radiation dose will be to the tumor. They understood what was explained and patient agreed to move forward with radiation treatment when applicable. They were advised that if I could be of any further assistance to please let me know, otherwise we will proceed as above. MD NENO MckayF LAMONTE/ERNESTINA /1:17 PM /8:25 AM MTDD
--- NOTE | 2016-10-13 10:25 | HHI.PR ---
Subjective Remarks Patient reports that he is feeling better today. Pain is better controlled. Not having much lower back pain. Pain is more localized around the right shoulder blade. Objective Vitals Vital Signs Date Time Temp Pulse Resp B/P Pulse Ox O2 Delivery O2 Flow Rate FiO2 10/13/16 04:30 96.6 56 16 140/70 97 10/13/16 00:00 97.3 62 16 127/61 97 10/12/16 20:14 66 10/12/16 20:00 96.7 67 16 124/65 98 10/12/16 16:18 96.1 55 18 134/66 96 10/12/16 15:28 56 18 116/68 94 10/12/16 14:58 55 18 123/67 97 10/12/16 14:28 58 18 112/58 93 10/12/16 13:58 61 18 101/54 97 10/12/16 13:43 98.4 61 18 106/54 96 I/O 10/12/16 10/12/16 10/12/16 10/13/16 10/13/16 10/13/16 07:00 15:00 23:00 07:00 15:00 23:00 Intake Total 430 ml 530 ml 1515 ml Output Total 900 ml 500 ml Balance -900 ml 430 ml 530 ml 1015 ml Intake Oral 480 ml 480 ml IV Total 430 ml 50 ml 1035 ml Output Urine Total 900 ml 500 ml Result Diagram: 10/13/16 0632 10/13/16 0632 Imaging Last Impressions Chest X-Ray 10/12/16 1600 Signed Impressions: Service Date/Time: Wednesday, October 12, 2016 14:32 - CONCLUSION: No pneumothorax is present following recent right lung/pleural based mass biopsy. Perry Erazo MD Lung Biopsy CT 10/12/16 1157 Signed Impressions: Service Date/Time: Wednesday, October 12, 2016 13:01 - CONCLUSION: Uncomplicated CT guided biopsy of the mass at the apex of the right hemithorax which may be pleural or parenchymal. Perry Erazo MD Objective Remarks GENERAL: This is a well-nourished, well-developed patient, in no apparent distress. CARDIOVASCULAR: Normal rate and regular rhythm without murmurs, gallops, or rubs. RESPIRATORY: Good respiratory efforts. Breath sounds equal and clear to auscultation bilaterally. GASTROINTESTINAL: Abdomen soft, non-tender, non-distended. Normal active bowel sounds MUSCULOSKELETAL: Mild tenderness to palpation over medial right scapula. Extremities without cyanosis, or edema. NEURO: Alert & Oriented x4 to person, place, time, situation. Moves all ext x4 PSYCH: Appropriate mood and affect. A/P Assessment and Plan 70 year-old male with: Pancoast tumor: CT of the chest outpatient showed a right upper lobe lung mass extending into the vertebral body with some lytic destruction of the ribs. Outpatient MRI of the spine with reports of a 8 x 7 cm RUL lung mass that extends into the T2, T3 and T4 vertebral body and into the thoracic spinal canal through the neural foramina displacing a thoracic cord consistent with Pancoast tumor. - Appreciate oncology and neurosurgery following. Status post CT-guided biopsy. Per neurosurgery, plan for decompression will be based on biopsy results. Radiation Oncology following and awaiting for biopsy results. - Pain is better controlled on Decadron, gabapentin, baclofen, Lortab, fentanyl , and morphine IV as needed. Continue to monitor. - Awaiting biopsy result Multiple myeloma: Followed by oncology. He was restarted on Alkeran and prednisone in August. 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 Continue home medications as indicated. He denies any history of diabetes. Ekaterina Aguirre MD Oct 13, 2016 10:25
[2016-10-13] MEDS: MORPHINE SULFATE 4 MG/ML INJ IV PRN ×2 (11:09→21:18)
--- NOTE | 2016-10-13 12:20 | PD.ONC.PN ---
Subjective Subjective Remarks Afebrile overnight. Patient states pain is controlled. He is requiring the morphine IV 3 to 4 times a day. He is eager to know pathology results. Objective Data Date Time Temp Pulse Resp B/P Pulse Ox O2 Delivery O2 Flow Rate FiO2 10/13/16 04:30 96.6 56 16 140/70 97 10/13/16 00:00 97.3 62 16 127/61 97 10/12/16 20:14 66 10/12/16 20:00 96.7 67 16 124/65 98 10/12/16 16:18 96.1 55 18 134/66 96 10/12/16 15:28 56 18 116/68 94 10/12/16 14:58 55 18 123/67 97 10/12/16 14:28 58 18 112/58 93 10/12/16 13:58 61 18 101/54 97 10/12/16 13:43 98.4 61 18 106/54 96 10/13/16 10/13/16 10/13/16 07:00 15:00 23:00 Intake Total 1515 ml Output Total 500 ml Balance 1015 ml Result Diagram: 10/13/16 0632 10/13/16 0632 Laboratory Results Laboratory Tests Test 10/13/16 06:32 White Blood Count 7.8 TH/MM3 Red Blood Count 3.77 MIL/MM3 Hemoglobin 12.0 GM/DL Hematocrit 35.5 % Mean Corpuscular Volume 94.2 FL Mean Corpuscular Hemoglobin 31.8 PG Mean Corpuscular Hemoglobin 33.8 % Concent Red Cell Distribution Width 14.0 % Platelet Count 174 TH/MM3 Mean Platelet Volume 8.9 FL Sodium Level 142 MEQ/L Potassium Level 3.9 MEQ/L Chloride Level 108 MEQ/L Carbon Dioxide Level 25.5 MEQ/L Anion Gap 9 MEQ/L Blood Urea Nitrogen 22 MG/DL Creatinine 0.60 MG/DL Estimat Glomerular Filtration 133 ML/MIN Rate Random Glucose 150 MG/DL Calcium Level 8.4 MG/DL Imaging Studies Last 24 hours Impressions Chest X-Ray 10/12/16 1600 Signed Impressions: Service Date/Time: Wednesday, October 12, 2016 14:32 - CONCLUSION: No pneumothorax is present following recent right lung/pleural based mass biopsy. Perry Erazo MD Chest X-Ray 10/12/16 1430 Signed Impressions: Service Date/Time: Wednesday, October 12, 2016 15:42 - CONCLUSION: No pneumothorax or effusion following lung biopsy. Bj Mendieta Jr., MD Administered Medications Medications (Trade) Dose Ordered Sig/Garry Route PRN Reason Start Time Stop Time Status Last Admin Dose Admin Sodium Chloride (NS 1000 ml Inj) 1,000 ml @ 83 mls/hr Q12H3M IV 10/11/16 16:17 10/13/16 01:58 IV Flush (NS Flush) 2 ml BID FLUSH 10/11/16 21:00 10/12/16 08:55 Magnesium Hydroxide (Milk Of Magncristopher Liq) 30 ml Q12H PRN PO CONSTIPATION 10/11/16 16:30 10/12/16 21:42 Temazepam (Restoril) 15 mg HS PRN PO INSOMNIA 10/11/16 16:30 10/11/16 21:08 Fentanyl (Duragesic 25 Mcg Patch.72 Hr) 1 patch Q3D TD 10/11/16 18:00 10/11/16 17:46 Acetaminophen/ Hydrocodone Bitart ([place] 5-325 Mg) 1 tab Q4H PRN PO PAIN SCALE 1 TO 5 10/11/16 16:30 10/12/16 21:41 Acetaminophen/ Hydrocodone Bitart ([place] 5-325 Mg) 2 tab Q4H PRN PO PAIN SCALE 6 TO 10 10/11/16 16:30 10/13/16 08:47 Morphine Sulfate (Morphine Inj) 2 mg Q3H PRN IV BREAKTHROUGH PAIN 10/11/16 16:45 10/13/16 11:09 Baclofen (Lioresal) 10 mg TID PO 10/11/16 18:00 10/13/16 08:47 Tamsulosin HCl (Flomax) 0.4 mg HS PO 10/11/16 21:00 10/12/16 21:37 Dexamethasone Sodium Phosphate (Decadron Inj) 4 mg Q6HR IV PUSH 10/11/16 18:00 10/13/16 05:19 Pantoprazole Sodium (Protonix Inj) 40 mg Q24H IV PUSH 10/11/16 18:00 10/12/16 16:36 Gabapentin (Neurontin) 400 mg TID PO 10/11/16 18:00 10/13/16 08:47 Objective Remarks GENERAL: Elderly male, sitting up in chair next to bed in nad. SKIN: Warm and dry. HEAD: Normocephalic. EYES: No injection or drainage. NECK: Supple, trachea midline. CARDIOVASCULAR: Regular rate and rhythm RESPIRATORY: Breath sounds equal bilaterally. No accessory muscle use. GASTROINTESTINAL: Abdomen soft, non-tender, nondistended. EXTREMITIES: No cyanosis NEUROLOGICAL: awake and alert, normal speech. bilateral foot drop. good strength bilateral upper extremities. facial movements symmetric. Assessment/Plan Problem List: (1) Lung mass Status: Acute Plan: 10/13/16: s/p CT guided lung mass biopsy yesterday. await pathology. --Right upper lobe lung mass infiltrating the cervical spine. most consistent with lung cancer. --CT chest, last week showed a mass in the right upper lobe of the lung that extends into the right T4 vertebral body and has some lytic destruction of the ribs. --MRI spine on October 04 showed 8.5 x 7.5 cm RUL lung mass that extends into the T2, T3 and T4 vertebral body and into the thoracic spinal canal through the neural foramina displacing a thoracic cord consistent with Pancoast tumor. --Radiation oncology and Neurosurgery following --on Decadron 4mg IV q6 --will need PET scan outpatient as well as MRI brain for staging. 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 --treated with Alkeran and Prednisone from 07/2015 to 07/2016, then Alkeran d/c from [facility]. --started on Cytoxan and Decadron--did not work --08/2016: resumed Alkeran + prednisone (3) Neuropathic pain Status: Acute Plan: --currently on Fentanyl 25mcg + [place] for breakthrough pain + Gabapentin + Baclofen Assessment 70y/o with suspected Pancoast tumor h/o Multiple myeloma h/o Arthritis BPH COPD Diabetes mellitus Hemorrhoids Hypercholesterolemia Osteopenia Colon cancer and now he has possible lung cancer. Attending Statement c/o neck and right shoulder pain path is pending. may need surgery. Dr Lewis to follow. The exam, history, and the medical decision-making described in the above note were completed with the assistance of the mid-level provider. I reviewed and agree with the findings presented. I attest that I had a [id number] encounter with the patient on the same day, and personally performed and documented my assessment and findings in the medical record. Ana Cristina Starkey Oct 13, 2016 12:20 Alia Lang MD Oct 13, 2016 18:34
[2016-10-13 13:00] VITALS: BP 112/50; PULSE 68; RESP 20; TEMP 96.8; O2SAT 98
[2016-10-13 16:00] VITALS: BP 118/50; PULSE 66; RESP 18; TEMP 97; O2SAT 98
[2016-10-13] MEDS: PANTOPRAZOLE SODIUM 40 MG VIAL IV PUSH SCH (17:57)
[2016-10-13 20:00] VITALS: BP 154/71; PULSE 62; PULSE 64; RESP 18; TEMP 97; O2SAT 97
[2016-10-13] MEDS: TAMSULOSIN HCL 0.4 MG CAP PO SCH (21:18)
[2016-10-13] MEDS: TEMAZEPAM 15 MG CAP PO PRN (23:19)
[2016-10-14] VITALS: BP 166/88; PULSE 61; RESP 18; TEMP 96.3; O2SAT 97
[2016-10-14] MEDS: MORPHINE SULFATE 4 MG/ML INJ IV PRN ×2 (00:06→03:01)
[2016-10-14] MEDS: HYDROmorphone HCL PF 1 MG/ML VIAL IV PUSH PRN ×3 (03:58→12:04)
[2016-10-14 04:00] VITALS: BP 177/90; PULSE 57; RESP 18; TEMP 96.6; O2SAT 98
[2016-10-14] MEDS: SODIUM CHLOR 0.9% 1000 ML INJ 1,000 ML IV SCH (04:32)
[2016-10-14] MEDS: DEXAMETHASONE SOD PHOS 4 MG/ML VIAL IV PUSH SCH ×4 (05:44→23:25)
[2016-10-14] MEDS: ACETAMINOPHEN/HYDROcodone 325 MG/5 MG TAB PO PRN ×4 (05:45→21:14)
[2016-10-14] MEDS: GABAPENTIN 400 MG CAP PO SCH ×3 (07:52→17:13)
[2016-10-14] MEDS: SODIUM CHLORIDE 0.9% FLUSH 5 ML FLUSH FLUSH SCH ×2 (07:52→21:15)
[2016-10-14] MEDS: BACLOFEN 10 MG TAB PO SCH ×3 (07:52→17:13)
[2016-10-14 08:00] VITALS: BP 156/90; PULSE 56; RESP 20; TEMP 97; O2SAT 98
[2016-10-14 12:00] VITALS: BP 145/84; PULSE 56; RESP 16; TEMP 96; O2SAT 98
--- NOTE | 2016-10-14 12:12 | RSPPFT ---
DATE OF PROCEDURE: 10/13/16 COMMENTS: Spirometry show FVC is moderately reduced with no significant improvement after bronchodilator. The FEV1 and FEF 25-75 are both moderately reduced with no significant improvement after bronchodilator. The FEV1/FVC ratio is also reduced. IMPRESSION: This is consistent with moderate, restrictive lung disease. There is also a large and small airways, irreversible, obstructive component.
--- NOTE | 2016-10-14 12:44 | PD.ONC.PN ---
Subjective Subjective Remarks Afebrile overnight. Patient continuing to have pain in neck and back especially with movement. +BM yesterday. He had simulation this AM. Objective Data Date Time Temp Pulse Resp B/P Pulse Ox O2 Delivery O2 Flow Rate FiO2 10/14/16 08:00 97.0 56 20 156/90 98 10/14/16 04:00 96.6 57 18 177/90 98 10/14/16 00:00 96.3 61 18 166/88 97 10/13/16 20:00 97.0 62 18 154/71 97 10/13/16 20:00 64 10/13/16 16:00 97.0 66 18 118/50 98 10/13/16 13:00 96.8 68 20 112/50 98 10/14/16 10/14/16 10/14/16 07:00 15:00 23:00 Output Total 900 ml 200 ml Balance -900 ml -200 ml Result Diagram: 10/13/16 0632 10/13/16 0632 Administered Medications Medications (Trade) Dose Ordered Sig/Garry Route PRN Reason Start Time Stop Time Status Last Admin Dose Admin Sodium Chloride (NS 1000 ml Inj) 1,000 ml @ 83 mls/hr Q12H3M IV 10/11/16 16:17 10/14/16 04:32 IV Flush (NS Flush) 2 ml BID FLUSH 10/11/16 21:00 10/14/16 07:52 Magnesium Hydroxide (Milk Of Magncristopher Liq) 30 ml Q12H PRN PO CONSTIPATION 10/11/16 16:30 10/12/16 21:42 Temazepam (Restoril) 15 mg HS PRN PO INSOMNIA 10/11/16 16:30 10/13/16 23:19 Fentanyl (Duragesic 25 Mcg Patch.72 Hr) 1 patch Q3D TD 10/11/16 18:00 10/11/16 17:46 Acetaminophen/ Hydrocodone Bitart ([place] 5-325 Mg) 1 tab Q4H PRN PO PAIN SCALE 1 TO 5 10/11/16 16:30 10/12/16 21:41 Acetaminophen/ Hydrocodone Bitart ([place] 5-325 Mg) 2 tab Q4H PRN PO PAIN SCALE 6 TO 10 10/11/16 16:30 10/14/16 10:49 Baclofen (Lioresal) 10 mg TID PO 10/11/16 18:00 10/14/16 12:06 Tamsulosin HCl (Flomax) 0.4 mg HS PO 10/11/16 21:00 10/13/16 21:18 Dexamethasone Sodium Phosphate (Decadron Inj) 4 mg Q6HR IV PUSH 10/11/16 18:00 10/14/16 12:07 Pantoprazole Sodium (Protonix Inj) 40 mg Q24H IV PUSH 10/11/16 18:00 10/13/16 17:57 Gabapentin (Neurontin) 400 mg TID PO 10/11/16 18:00 10/14/16 12:06 Hydromorphone HCl (Dilaudid Pf Inj) 0.5 mg Q4H PRN IV PUSH breakthrough pain 10/14/16 04:00 10/14/16 12:04 Objective Remarks GENERAL: Elderly male, sitting upright in room in nad. SKIN: Warm and dry. HEAD: Normocephalic. EYES: No injection or drainage. NECK: Supple, trachea midline. CARDIOVASCULAR: Regular rate and rhythm RESPIRATORY: Breath sounds equal bilaterally. No accessory muscle use. GASTROINTESTINAL: Abdomen soft, non-tender, nondistended. EXTREMITIES: No cyanosis NEUROLOGICAL: awake and alert, normal speech. Assessment/Plan Problem List: (1) Lung mass Status: Acute Plan: 10/14/16: await pathology. increase Fentanyl to 50mcg --Right upper lobe lung mass infiltrating the cervical spine. most consistent with lung cancer. --CT chest, last week showed a mass in the right upper lobe of the lung that extends into the right T4 vertebral body and has some lytic destruction of the ribs. --MRI spine on October 04 showed 8.5 x 7.5 cm RUL lung mass that extends into the T2, T3 and T4 vertebral body and into the thoracic spinal canal through the neural foramina displacing a thoracic cord consistent with Pancoast tumor. --Radiation oncology and Neurosurgery following --on Decadron 4mg IV q6 --will need PET scan outpatient as well as MRI brain for staging. 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 --treated with Alkeran and Prednisone from 07/2015 to 07/2016, then Alkeran d/c from [facility]. --started on Cytoxan and Decadron--did not work --08/2016: resumed Alkeran + prednisone (3) Neuropathic pain Status: Acute Plan: 10/14 will increase to 50mcg --currently on Fentanyl + [place] + morphine for breakthrough pain + Gabapentin + Baclofen Assessment 70y/o with suspected Pancoast tumor h/o Multiple myeloma h/o Arthritis BPH COPD Diabetes mellitus Hemorrhoids Hypercholesterolemia Osteopenia Colon cancer and now he has possible lung cancer. Attending Statement no new c/o D/W DR Mendieta ( pathologist) . He has myeloma of the lung d/w DR Lewis and Dr Carpenter. plan is for XRT and no N/S at this time. will follow. Ana Cristina Starkey Oct 14, 2016 12:44 Alia Lang MD Oct 14, 2016 20:47
--- NOTE | 2016-10-14 13:05 | HHI.PR ---
Subjective Remarks Patient reports he was experiencing significant pain last night. Today he is much better. Pain is controlled. Objective Vitals Vital Signs Date Time Temp Pulse Resp B/P Pulse Ox O2 Delivery O2 Flow Rate FiO2 10/14/16 12:00 96.0 56 16 145/84 98 10/14/16 08:00 97.0 56 20 156/90 98 10/14/16 04:00 96.6 57 18 177/90 98 10/14/16 00:00 96.3 61 18 166/88 97 10/13/16 20:00 97.0 62 18 154/71 97 10/13/16 20:00 64 10/13/16 16:00 97.0 66 18 118/50 98 I/O 10/13/16 10/13/16 10/13/16 10/14/16 10/14/16 10/14/16 07:00 15:00 23:00 07:00 15:00 23:00 Intake Total 1515 ml 1672 ml 600 ml 480 ml Output Total 500 ml 700 ml 900 ml 200 ml Balance 1015 ml 1672 ml -100 ml -900 ml 280 ml Intake Oral 480 ml 960 ml 600 ml 480 ml IV Total 1035 ml 712 ml Output Urine Total 500 ml 700 ml 900 ml 200 ml # Voids 1 3 # Bowel Movements 1 0 Result Diagram: 10/13/1632 10/13/16 0632 Objective Remarks GENERAL: This is a well-nourished, well-developed patient, in no apparent distress. CARDIOVASCULAR: Normal rate and regular rhythm without murmurs, gallops, or rubs. RESPIRATORY: Good respiratory efforts. Breath sounds equal and clear to auscultation bilaterally. GASTROINTESTINAL: Abdomen soft, non-tender, non-distended. Normal active bowel sounds MUSCULOSKELETAL: Mild tenderness to palpation over medial right scapula. Extremities without cyanosis, or edema. NEURO: Alert & Oriented x4 to person, place, time, situation. Moves all ext x4 PSYCH: Appropriate mood and affect. A/P Assessment and Plan 70 year-old male with: Pancoast tumor: CT of the chest outpatient showed a right upper lobe lung mass extending into the vertebral body with some lytic destruction of the ribs. Outpatient MRI of the spine with reports of a 8 x 7 cm RUL lung mass that extends into the T2, T3 and T4 vertebral body and into the thoracic spinal canal through the neural foramina displacing a thoracic cord consistent with Pancoast tumor. - Appreciate oncology and neurosurgery following. Status post CT-guided biopsy. Per neurosurgery, plan for decompression will be based on biopsy results. Radiation Oncology following and awaiting for biopsy results. - Pain is better controlled on Decadron, gabapentin, baclofen, Lortab, fentanyl , and morphine IV as needed. Continue to monitor. - Awaiting biopsy result -Fentanyl increased. Multiple myeloma: Followed by oncology. He was restarted on Alkeran and prednisone in August. 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 Continue home medications as indicated. He denies any history of diabetes. Ekaterina Aguirre MD Oct 14, 2016 13:05
[2016-10-14] MEDS: fentaNYL 50 MCG/HR PATCH TD SCH (13:53)
--- NOTE | 2016-10-14 15:30 | HHI.NSPN ---
History Chief Complaint: none Interval History He has been on a fentanyl patch and his pain remains a 7/10. The pathology from the lung bx was consistent with multiple myeloma. He did well with PT. RT is planned in the near future. Review of Systems General: Negative for: fever, chills, insomnia Respiratory: Negative for: shortness of breath, cough, sputum Cardiovascular: Negative for: chest pain, palpitations, orthopnea Gastrointestinal: Negative for: nausea, vomitting, diarrhea, constipation Exam Results Vital Signs Date Time Temp Pulse Resp B/P Pulse Ox O2 Delivery O2 Flow Rate FiO2 10/14/16 12:00 96.0 56 16 145/84 98 10/11/16 19:15 Room Air Intake and Output 10/13/16 10/13/16 10/14/16 08:00 16:00 00:00 Intake Total 960 ml 1672 ml 600 ml Output Total 500 ml 700 ml Balance 460 ml 1672 ml -100 ml Physical Examination Alert, speech fluent, oriented x 3 Moving both upper extremities well, peripheral neuropathy unchanged. Lab, Micro, Other Results Last Impressions Chest X-Ray 10/12/16 1600 Signed Impressions: Service Date/Time: Wednesday, October 12, 2016 14:32 - CONCLUSION: No pneumothorax is present following recent right lung/pleural based mass biopsy. Perry Erazo MD Lung Biopsy CT 10/12/16 1157 Signed Impressions: Service Date/Time: Wednesday, October 12, 2016 13:01 - CONCLUSION: Uncomplicated CT guided biopsy of the mass at the apex of the right hemithorax which may be pleural or parenchymal. Perry Erazo MD Medical Decision Making Impression and Plan Multiple myeloma with epidural and pleural extension Plan RT, chemo, decadron slow taper, pain management. He is stable neurologically to start treatment. Total Minutes: 10 Zenon Aldrich Oct 14, 2016 15:29
[2016-10-14 16:00] VITALS: BP 168/88; PULSE 63; RESP 16; TEMP 96.5; O2SAT 99
[2016-10-14] MEDS: MORPHINE SULFATE 4 MG/ML INJ IV PUSH PRN ×2 (17:14→23:26)
[2016-10-14] MEDS: PANTOPRAZOLE SODIUM 40 MG VIAL IV PUSH SCH (17:14)
[2016-10-14] MEDS ORDERED: REMOVE OLD PATCH T-DERMAL SCH (18:00)
[2016-10-14 20:00] VITALS: BP 153/74; PULSE 67; RESP 16; TEMP 98.2; O2SAT 98
[2016-10-14] MEDS: MAGNESIUM HYDROXIDE SUSP 30 ML CUP PO PRN (21:14)
[2016-10-14] MEDS: TAMSULOSIN HCL 0.4 MG CAP PO SCH (21:17)
[2016-10-15] VITALS: BP 151/91; PULSE 63; RESP 16; TEMP 96.4; O2SAT 98
[2016-10-15] MEDS: ACETAMINOPHEN/HYDROcodone 325 MG/5 MG TAB PO PRN (01:08)
[2016-10-15 04:00] VITALS: BP 141/82; PULSE 57; RESP 15; TEMP 96.3; O2SAT 97
[2016-10-15] MEDS: DEXAMETHASONE SOD PHOS 4 MG/ML VIAL IV PUSH SCH ×4 (06:17→23:08)
[2016-10-15 08:00] VITALS: BP 191/94; PULSE 66; RESP 16; TEMP 97; O2SAT 99
--- NOTE | 2016-10-15 08:46 | PD.ONC.PN ---
Subjective Subjective Remarks Afebrile overnight. Patient resting comfortably. He slept much better last night after increase in the fentanyl patch. He is glad to have a diagnosis. Objective Data Date Time Temp Pulse Resp B/P Pulse Ox O2 Delivery O2 Flow Rate FiO2 10/15/16 08:00 97.0 66 16 191/94 99 10/15/16 04:00 96.3 57 15 141/82 97 10/15/16 02:14 19 10/15/16 00:21 20 10/15/16 00:00 96.4 63 16 151/91 98 10/14/16 20:00 98.2 67 16 153/74 98 10/14/16 16:00 96.5 63 16 168/88 99 10/14/16 12:00 96.0 56 16 145/84 98 10/15/16 10/15/16 10/15/16 07:00 15:00 23:00 Intake Total 321 ml Output Total 200 ml Balance 121 ml Result Diagram: 10/13/1663110/13/16631 Administered Medications Medications (Trade) Dose Ordered Sig/Garry Route PRN Reason Start Time Stop Time Status Last Admin Dose Admin IV Flush (NS Flush) 2 ml BID FLUSH 10/11/16 21:00 10/14/16 21:15 Magnesium Hydroxide (Milk Of [place]) 30 ml Q12H PRN PO CONSTIPATION 10/11/16 16:30 10/14/16 21:14 Temazepam (Restoril) 15 mg HS PRN PO INSOMNIA 10/11/16 16:30 10/13/16 23:19 Baclofen (Lioresal) 10 mg TID PO 10/11/16 18:00 10/14/16 17:13 Tamsulosin HCl (Flomax) 0.4 mg HS PO 10/11/16 21:00 10/14/16 21:17 Dexamethasone Sodium Phosphate (Decadron Inj) 4 mg Q6HR IV PUSH 10/11/16 18:00 10/15/16 06:17 Pantoprazole Sodium (Protonix Inj) 40 mg Q24H IV PUSH 10/11/16 18:00 10/14/16 17:14 Gabapentin (Neurontin) 400 mg TID PO 10/11/16 18:00 10/14/16 17:13 Fentanyl (Duragesic 50 Mcg Patch.72 Hr) 1 patch Q3D TD 10/14/16 13:00 10/14/16 13:53 Morphine Sulfate (Morphine Inj) 2 mg Q3H PRN IV PUSH breakthrough pain 10/14/16 12:45 10/14/16 23:26 Objective Remarks GENERAL: Elderly male, sitting up in bed eating breakfast. SKIN: Warm and dry. HEAD: Normocephalic. EYES: No injection or drainage. NECK: Supple, trachea midline. CARDIOVASCULAR: +S1/S2. RESPIRATORY: Breath sounds equal bilaterally. No accessory muscle use. GASTROINTESTINAL: Abdomen soft, non-tender, nondistended. EXTREMITIES: No cyanosis. NEUROLOGICAL: AO x3. normal speech. moving all extremities. Assessment/Plan Problem List: (1) Lung mass Status: Acute Plan: 10/15/16: XRT today. stop Hydrocodone, start Dilaudid PO, will continue IV morphine for breakthrough. --Right upper lobe lung mass infiltrating the cervical spine. most consistent with lung cancer. --CT chest, last week showed a mass in the right upper lobe of the lung that extends into the right T4 vertebral body and has some lytic destruction of the ribs. --MRI spine on October 04 showed 8.5 x 7.5 cm RUL lung mass that extends into the T2, T3 and T4 vertebral body and into the thoracic spinal canal through the neural foramina displacing a thoracic cord consistent with Pancoast tumor. --Radiation oncology and Neurosurgery following --on Decadron 4mg IV q6 --will need PET scan outpatient as well as MRI brain for staging. 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 --treated with Alkeran and Prednisone from 07/2015 to 07/2016, then Alkeran d/c from [facility]. 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 Attending Statement c/o neck and r shoulder pain d/w pt and daughter regarding the bx report again. He is still in lot of pain. Can not be d/c Will start XRT today. They have several questions. He had Alkeran in 04/2016 . No Treatment in may and jun ( Due to shortage of Alkeran) had cytoxan in july and back on alkeran on 09/18/16. He probably has progressive myeloma due to to not on alkeran. Will Monitor M protein and reassess. The exam, history, and the medical decision-making described in the above note were completed with the assistance of the mid-level provider. I reviewed and agree with the findings presented. I attest that I had a [id number] encounter with the patient on the same day, and personally performed and documented my assessment and findings in the medical record. Ana Cristina Starkey Oct 15, 2016 08:46 Alia Lang MD Oct 15, 2016 17:24
[2016-10-15] MEDS ORDERED: HYDROmorphone HCL 2 MG TAB PO PRN (09:00)
[2016-10-15] MEDS: GABAPENTIN 400 MG CAP PO SCH ×3 (09:01→18:37)
[2016-10-15] MEDS: BACLOFEN 10 MG TAB PO SCH ×3 (09:01→18:37)
[2016-10-15] MEDS: HYDROmorphone HCL 4 MG TAB PO PRN ×4 (09:02→23:08)
[2016-10-15] MEDS: SODIUM CHLORIDE 0.9% FLUSH 5 ML FLUSH FLUSH SCH ×2 (09:03→19:51)
--- NOTE | 2016-10-15 09:28 | HHI.PR ---
Subjective Remarks Patient reports that he is in pain this morning. He will receive pain medication shortly. Otherwise has no new complaints. Objective Vitals Vital Signs Date Time Temp Pulse Resp B/P Pulse Ox O2 Delivery O2 Flow Rate FiO2 10/15/16 08:00 97.0 66 16 191/94 99 10/15/16 04:00 96.3 57 15 141/82 97 10/15/16 02:14 19 10/15/16 00:21 20 10/15/16 00:00 96.4 63 16 151/91 98 10/14/16 20:00 98.2 67 16 153/74 98 10/14/16 16:00 96.5 63 16 168/88 99 10/14/16 12:00 96.0 56 16 145/84 98 I/O 10/14/16 10/14/16 10/14/16 10/15/16 10/15/16 10/15/16 07:00 15:00 23:00 07:00 15:00 23:00 Intake Total 895 ml 807 ml 321 ml Output Total 900 ml 200 ml 200 ml Balance -900 ml 695 ml 807 ml 121 ml Intake Oral 480 ml 480 ml 240 ml IV Total 415 ml 327 ml 81 ml Output Urine Total 900 ml 200 ml 200 ml # Voids 3 1 # Bowel Movements 0 0 Result Diagram: 10/13/1632 10/13/16 0632 Objective Remarks GENERAL: This is a well-nourished, well-developed patient, in no apparent distress. CARDIOVASCULAR: Normal rate and regular rhythm without murmurs, gallops, or rubs. RESPIRATORY: Good respiratory efforts. Breath sounds equal and clear to auscultation bilaterally. GASTROINTESTINAL: Abdomen soft, non-tender, non-distended. Normal active bowel sounds MUSCULOSKELETAL: Mild tenderness to palpation over medial right scapula. Extremities without cyanosis, or edema. NEURO: Alert & Oriented x4 to person, place, time, situation. Moves all ext x4 PSYCH: Appropriate mood and affect. A/P Assessment and Plan 70 year-old male with: Pancoast tumor: CT of the chest outpatient showed a right upper lobe lung mass extending into the vertebral body with some lytic destruction of the ribs. Outpatient MRI of the spine with reports of a 8 x 7 cm RUL lung mass that extends into the T2, T3 and T4 vertebral body and into the thoracic spinal canal through the neural foramina displacing a thoracic cord consistent with Pancoast tumor. - Appreciate oncology and neurosurgery following. Status post CT-guided biopsy which showed melanoma. Plan for radiation. - Pain is better controlled gabapentin, baclofen, Lortab, fentanyl, and morphine IV as needed. Dilaudid as needed. Continue to monitor. - Decadron per neurosurgery. Multiple myeloma: Followed by oncology. He was restarted on Alkeran and prednisone in August. - Further therapy per oncology Elevated blood pressure: No history of hypertension. High-dose steroid and pain probably contributing. - Vasotec as needed. Monitor closely. 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 Continue home medications as indicated. He denies any history of diabetes. Ekaterina Aguirre MD Oct 15, 2016 09:28
[2016-10-15] MEDS ORDERED: ENALAPRILAT 1.25 MG/ML VIAL IV PUSH PRN (10:00)
[2016-10-15] MEDS: MORPHINE SULFATE 4 MG/ML INJ IV PUSH PRN ×3 (11:21→19:49)
[2016-10-15] MEDS: SODIUM CHLORIDE 0.9% FLUSH 5 ML FLUSH FLUSH PRN (11:32)
[2016-10-15] MEDS: MAGNESIUM HYDROXIDE SUSP 30 ML CUP PO PRN (11:32)
[2016-10-15 12:00] VITALS: BP 167/88; PULSE 65; RESP 16; TEMP 97; O2SAT 99
[2016-10-15] MEDS: ONDANSETRON HCL 4 MG/2 ML VIAL IVP PRN (16:31)
[2016-10-15 16:40] VITALS: BP 180/88; PULSE 53; RESP 24; TEMP 96; O2SAT 98
--- NOTE | 2016-10-15 18:30 | HHI.NSPN ---
History Chief Complaint: emesis during RT today Interval History He has been on a fentanyl patch and his pain remains a 6-8/10. The pathology from the lung bx was consistent with multiple myeloma. He did well with PT. RT started today, was accompanied with nausea but no neurologic problems. Review of Systems General: Negative for: fever, chills, insomnia Respiratory: Negative for: shortness of breath, cough, sputum Cardiovascular: Negative for: chest pain, palpitations, orthopnea Gastrointestinal: Positive for: nausea Genitourinary: Negative for: urinary burning, urinary frequency, urinary urgency Exam Results Vital Signs Date Time Temp Pulse Resp B/P Pulse Ox O2 Delivery O2 Flow Rate FiO2 10/15/16 16:40 96.0 53 24 180/88 98 10/11/16 19:15 Room Air Intake and Output 10/14/16 10/14/16 10/15/16 08:00 16:00 00:00 Intake Total 1135 ml 567 ml Output Total 1100 ml Balance -1100 ml 1135 ml 567 ml Physical Examination Alert, speech fluent, oriented x 3 Moving both upper extremities well, peripheral neuropathy unchanged. Hip flexors remain 4+/5 bilaterally Medical Decision Making Impression and Plan Multiple myeloma with epidural and pleural extension, T2 to T4 and right brachial plexus Plan RT followed by chemo, decadron slow taper, pain management. He is stable neurologically at this time. CT 4 weeks after RT will be obtained to establish alignment and estimate bony loss after treatment. Total Minutes: 10 Zenon Aldrich Oct 15, 2016 18:30
[2016-10-15] MEDS: PANTOPRAZOLE SODIUM 40 MG VIAL IV PUSH SCH (18:37)
[2016-10-15] MEDS: TAMSULOSIN HCL 0.4 MG CAP PO SCH (19:48)
[2016-10-15] MEDS: DOCUSATE SODIUM 50 MG/SENNA 8.6 MG TAB PO SCH (19:48)
[2016-10-15 20:00] VITALS: BP 169/89; PULSE 58; RESP 16; TEMP 97.3; O2SAT 97
[2016-10-16] VITALS (7 sets, daily range): BP systolic 126–188; BP diastolic 76–92; PULSE 61–66; RESP 16–17; TEMP 95.9–97.9; O2SAT 95–100
[2016-10-16] MEDS: HYDROmorphone HCL 4 MG TAB PO PRN ×4 (06:00→23:45)
[2016-10-16] MEDS: DEXAMETHASONE SOD PHOS 4 MG/ML VIAL IV PUSH SCH ×4 (06:02→23:45)
[2016-10-16] MEDS: MORPHINE SULFATE 4 MG/ML INJ IV PUSH PRN ×3 (07:07→19:27)
--- NOTE | 2016-10-16 08:15 | PD.ONC.PN ---
Subjective Subjective Remarks Afebrile overnight. Son at bedside. Pt sitting up in bed in no distress. He states he feels better today than yesterday. Yesterday he went to radiation and vomited while he was there. He is asking to be medicated before he goes to radiation today. Objective Data Date Time Temp Pulse Resp B/P Pulse Ox O2 Delivery O2 Flow Rate FiO2 10/16/16 07:45 19 10/16/16 07:00 19 10/16/16 06:21 188/86 Automatic Cuff 10/16/16 04:00 95.9 66 17 183/91 95 10/16/16 00:00 96.0 64 17 128/89 95 10/15/16 20:00 97.3 58 16 169/89 97 10/15/16 16:40 96.0 53 24 180/88 98 10/15/16 12:00 97.0 65 16 167/88 99 10/16/16 10/16/16 10/16/16 07:00 15:00 23:00 Intake Total 240 ml Output Total 350 ml Balance -110 ml Result Diagram: 10/13/1632 10/13/1632 Administered Medications Medications (Trade) Dose Ordered Sig/Garry Route PRN Reason Start Time Stop Time Status Last Admin Dose Admin IV Flush (NS Flush) 2 ml UNSCH PRN FLUSH FLUSH AFTER USING IV ACCESS 10/11/16 16:30 10/15/16 11:32 IV Flush (NS Flush) 2 ml BID FLUSH 10/11/16 21:00 10/15/16 19:51 Ondansetron HCl (Zofran Inj) 4 mg Q6H PRN IVP NAUSEA OR VOMITING 10/11/16 16:30 10/15/16 16:31 Magnesium Hydroxide (Milk Of Magnesia Liq) 30 ml Q12H PRN PO CONSTIPATION 10/11/16 16:30 10/15/16 11:32 Temazepam (Restoril) 15 mg HS PRN PO INSOMNIA 10/11/16 16:30 10/13/16 23:19 Baclofen (Lioresal) 10 mg TID PO 10/11/16 18:00 10/15/16 18:37 Tamsulosin HCl (Flomax) 0.4 mg HS PO 10/11/16 21:00 10/15/16 19:48 Dexamethasone Sodium Phosphate (Decadron Inj) 4 mg Q6HR IV PUSH 10/11/16 18:00 10/16/16 06:02 Pantoprazole Sodium (Protonix Inj) 40 mg Q24H IV PUSH 10/11/16 18:00 10/15/16 18:37 Gabapentin (Neurontin) 400 mg TID PO 10/11/16 18:00 10/15/16 18:37 Fentanyl (Duragesic 50 Mcg Patch.72 Hr) 1 patch Q3D TD 10/14/16 13:00 10/14/16 13:53 Morphine Sulfate (Morphine Inj) 2 mg Q3H PRN IV PUSH breakthrough pain 10/14/16 12:45 10/16/16 07:07 Hydromorphone HCl (Dilaudid) 4 mg Q4H PRN PO PAIN SCALE 5 TO 10 10/15/16 09:00 10/16/16 06:00 Senna/Docusate Sodium (Ariela-Colace) 1 tab BID PO 10/15/16 21:00 10/15/16 19:48 Objective Remarks GENERAL: Elderly male, sitting up in bed in no distress talking with son. SKIN: Warm and dry. HEAD: Normocephalic. EYES: No injection or drainage. NECK: Supple, trachea midline. CARDIOVASCULAR: +S1/S2. RESPIRATORY: Breath sounds equal bilaterally. No accessory muscle use. GASTROINTESTINAL: Abdomen soft, non-tender, nondistended. EXTREMITIES: No cyanosis. NEUROLOGICAL: AO x3. normal speech. moving all extremities. Assessment/Plan Problem List: (1) Lung mass Status: Acute Plan: --Right upper lobe lung mass infiltrating the cervical spine. most consistent with lung cancer. --CT chest, last week showed a mass in the right upper lobe of the lung that extends into the right T4 vertebral body and has some lytic destruction of the ribs. --MRI spine on October 04 showed 8.5 x 7.5 cm RUL lung mass that extends into the T2, T3 and T4 vertebral body and into the thoracic spinal canal through the neural foramina displacing a thoracic cord consistent with Pancoast tumor. --Radiation oncology and Neurosurgery following --on Decadron 4mg IV q6 --will need PET scan outpatient as well as MRI brain for staging. 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 --treated with Alkeran and Prednisone from 07/2015 to 07/2016, then Alkeran d/c from [facility]. 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 Plan 1. XRT today; will try to give pain and nausea meds just prior to going. 2. He will need restaging with a PET CT scan once discharged. 3. He will stay as an inpatient until pain is better controlled. 4. Supportive care. Attending Statement The exam, history, and the medical decision-making described in the above note were completed with the assistance of the mid-level provider. I reviewed and agree with the findings presented. I attest that I had a [id number] encounter with the patient on the same day, and personally performed and documented my assessment and findings in the medical record. Pt seen and examined. Main c/o pain while waiting at XRT, morphine wore off. Noted Fentanyl patch and Dilaudid breakthrough, should control pain better. Tx for MM per Dr. Lang. Cont plan XRT to plasmacytoma. Sneha Dean Oct 16, 2016 08:15 Ju Spears MD Oct 16, 2016 16:36
[2016-10-16] MEDS: SODIUM CHLORIDE 0.9% FLUSH 5 ML FLUSH FLUSH SCH ×2 (09:00→19:28)
[2016-10-16] MEDS: GABAPENTIN 400 MG CAP PO SCH ×3 (09:15→17:37)
[2016-10-16] MEDS: LISINOPRIL 10 MG TAB PO SCH (09:15)
[2016-10-16] MEDS: BACLOFEN 10 MG TAB PO SCH ×3 (09:15→17:39)
[2016-10-16] MEDS: DOCUSATE SODIUM 50 MG/SENNA 8.6 MG TAB PO SCH ×2 (09:15→19:28)
[2016-10-16 09:28] LABS: KAPPA LAMBDA RATIO 1.33 (1.57-3.93)
[2016-10-16] MEDS: ONDANSETRON HCL 4 MG/2 ML VIAL IVP PRN (10:42)
--- NOTE | 2016-10-16 13:08 | HHI.PR ---
Subjective Remarks Patient reports that he is feeling okay today. His pain is controlled. Still require morphine at times. Could not have radiation today because the machine malfunctioned. He will go back on Tuesday. He is requesting stronger pain medication and nausea medication prior to radiation. Objective Vitals Vital Signs Date Time Temp Pulse Resp B/P Pulse Ox O2 Delivery O2 Flow Rate FiO2 10/16/16 12:00 97.5 65 16 152/84 98 10/16/16 08:31 97.9 61 16 178/92 96 10/16/16 07:45 19 10/16/16 07:00 19 10/16/16 06:21 188/86 Automatic Cuff 10/16/16 04:00 95.9 66 17 183/91 95 10/16/16 00:00 96.0 64 17 128/89 95 10/15/16 20:00 97.3 58 16 169/89 97 10/15/16 16:40 96.0 53 24 180/88 98 I/O 10/15/16 10/15/16 10/15/16 10/16/16 10/16/16 10/16/16 07:00 15:00 23:00 07:00 15:00 23:00 Intake Total 321 ml 1440 ml 240 ml 240 ml Output Total 200 ml 350 ml Balance 121 ml 1440 ml 240 ml -110 ml Intake Oral 240 ml 1440 ml 240 ml 240 ml IV Total 81 ml Output Urine Total 200 ml 350 ml # Voids 6 # Bowel Movements 0 0 Result Diagram: 10/13/16 0632 10/13/16 0632 Objective Remarks GENERAL: This is a well-nourished, well-developed patient, in no apparent distress. CARDIOVASCULAR: Normal rate and regular rhythm without murmurs, gallops, or rubs. RESPIRATORY: Good respiratory efforts. Breath sounds equal and clear to auscultation bilaterally. GASTROINTESTINAL: Abdomen soft, non-tender, non-distended. Normal active bowel sounds MUSCULOSKELETAL: Mild tenderness to palpation over medial right scapula. Extremities without cyanosis, or edema. NEURO: Alert & Oriented x4 to person, place, time, situation. Moves all ext x4 PSYCH: Appropriate mood and affect. A/P Assessment and Plan 70 year-old male with: Pancoast tumor: CT of the chest outpatient showed a right upper lobe lung mass extending into the vertebral body with some lytic destruction of the ribs. Outpatient MRI of the spine with reports of a 8 x 7 cm RUL lung mass that extends into the T2, T3 and T4 vertebral body and into the thoracic spinal canal through the neural foramina displacing a thoracic cord consistent with Pancoast tumor. - Appreciate oncology and neurosurgery following. Status post CT-guided biopsy which showed melanoma. Patient currently getting radiation. Next session on Tuesday. - Pain is better controlled gabapentin, baclofen, Lortab, fentanyl, and morphine IV as needed. Dilaudid as needed. Continue to monitor. - Add IV Dilaudid to use prior to radiation. - Decadron IV per neurosurgery. Multiple myeloma: Followed by oncology. He was restarted on Alkeran and prednisone in August. - Further therapy per oncology Elevated blood pressure: No known history of hypertension. High-dose steroid and pain probably contributing. Patient probably has underlying hypertension. - Start lisinopril. - Vasotec as needed. Monitor closely. 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 Continue home medications as indicated. He denies any history of diabetes. Ekaterina Aguirre MD Oct 16, 2016 13:08
[2016-10-16 14:34] LABS: BICARBONATE 29.5 MEQ/L (21.0-32.0); POTASSIUM 3.9 MEQ/L (3.5-5.1)
[2016-10-16] MEDS: PANTOPRAZOLE SODIUM 40 MG VIAL IV PUSH SCH (17:38)
[2016-10-16] MEDS: TAMSULOSIN HCL 0.4 MG CAP PO SCH (19:28)
[2016-10-17] VITALS: BP 142/76; PULSE 63; RESP 18; TEMP 97.4; O2SAT 98
[2016-10-17] MEDS: MORPHINE SULFATE 4 MG/ML INJ IV PUSH PRN ×2 (01:25→08:31)
[2016-10-17 04:00] VITALS: BP 142/74; PULSE 60; RESP 18; TEMP 97.3; O2SAT 98
[2016-10-17] MEDS: HYDROmorphone HCL 4 MG TAB PO PRN ×3 (05:06→19:12)
[2016-10-17] MEDS: DEXAMETHASONE SOD PHOS 4 MG/ML VIAL IV PUSH SCH ×3 (05:07→18:02)
[2016-10-17 08:00] VITALS: BP 144/78; PULSE 60; RESP 16; TEMP 97.6; O2SAT 98
[2016-10-17] MEDS: BACLOFEN 10 MG TAB PO SCH ×3 (08:33→18:02)
[2016-10-17] MEDS: DOCUSATE SODIUM 50 MG/SENNA 8.6 MG TAB PO SCH ×2 (08:33→21:00)
[2016-10-17] MEDS: GABAPENTIN 400 MG CAP PO SCH ×3 (08:33→18:02)
[2016-10-17] MEDS: LISINOPRIL 10 MG TAB PO SCH (08:33)
--- NOTE | 2016-10-17 08:33 | PD.ONC.PN ---
Subjective Subjective Remarks Afebrile overnight. Pt states he is still having quite a bit of pain in his back and shoulders. He apparently went down to radiation yesterday but unfortunately there was a problem with the machine and he was unable to complete. He will go for radiation #10/11 tomorrow. His appetite is good. No SOB. Objective Data Date Time Temp Pulse Resp B/P Pulse Ox O2 Delivery O2 Flow Rate FiO2 10/17/16 06:35 19 10/17/16 04:00 97.3 60 18 142/74 98 10/17/16 01:30 20 10/17/16 00:00 97.4 63 18 142/76 98 10/16/16 20:00 97.6 66 17 131/78 98 10/16/16 16:00 97.6 64 16 126/76 100 10/16/16 12:00 97.5 65 16 152/84 98 10/16/16 08:31 97.9 61 16 178/92 96 Result Diagram: 10/13/16 0632 10/16/16 1347 Laboratory Results Laboratory Tests Test 10/16/16 13:47 Sodium Level 140 MEQ/L Potassium Level 3.9 MEQ/L Chloride Level 101 MEQ/L Carbon Dioxide Level 29.5 MEQ/L Anion Gap 10 MEQ/L Blood Urea Nitrogen 19 MG/DL Creatinine 0.66 MG/DL Estimat Glomerular Filtration 119 ML/MIN Rate Random Glucose 161 MG/DL Calcium Level 8.6 MG/DL Administered Medications Medications (Trade) Dose Ordered Sig/Garry Route PRN Reason Start Time Stop Time Status Last Admin Dose Admin IV Flush (NS Flush) 2 ml UNSCH PRN FLUSH FLUSH AFTER USING IV ACCESS 10/11/16 16:30 10/15/16 11:32 IV Flush (NS Flush) 2 ml BID FLUSH 10/11/16 21:00 10/16/16 19:28 Ondansetron HCl (Zofran Inj) 4 mg Q6H PRN IVP NAUSEA OR VOMITING 10/11/16 16:30 10/16/16 10:42 Magnesium Hydroxide (Milk Of Magnesia Liq) 30 ml Q12H PRN PO CONSTIPATION 10/11/16 16:30 10/15/16 11:32 Temazepam (Restoril) 15 mg HS PRN PO INSOMNIA 10/11/16 16:30 10/13/16 23:19 Baclofen (Lioresal) 10 mg TID PO 10/11/16 18:00 10/16/16 17:39 Tamsulosin HCl (Flomax) 0.4 mg HS PO 10/11/16 21:00 10/16/16 19:28 Dexamethasone Sodium Phosphate (Decadron Inj) 4 mg Q6HR IV PUSH 10/11/16 18:00 10/17/16 05:07 Pantoprazole Sodium (Protonix Inj) 40 mg Q24H IV PUSH 10/11/16 18:00 10/16/16 17:38 Gabapentin (Neurontin) 400 mg TID PO 10/11/16 18:00 10/16/16 17:37 Fentanyl (Duragesic 50 Mcg Patch.72 Hr) 1 patch Q3D TD 10/14/16 13:00 10/14/16 13:53 Morphine Sulfate (Morphine Inj) 2 mg Q3H PRN IV PUSH breakthrough pain 10/14/16 12:45 10/17/16 01:25 Hydromorphone HCl (Dilaudid) 4 mg Q4H PRN PO PAIN SCALE 5 TO 10 10/15/16 09:00 10/17/16 05:06 Senna/Docusate Sodium (Ariela-Colace) 1 tab BID PO 10/15/16 21:00 10/16/16 19:28 Lisinopril (Prinivil) 10 mg DAILY PO 10/16/16 09:00 10/16/16 09:15 Objective Remarks GENERAL: Elderly male, sitting up at side of bed in no distress talking with daughter. SKIN: Warm and dry. HEAD: Normocephalic. EYES: No injection or drainage. NECK: Supple, trachea midline. CARDIOVASCULAR: +S1/S2. RESPIRATORY: Breath sounds equal bilaterally. No accessory muscle use. GASTROINTESTINAL: Abdomen soft, non-tender, nondistended. EXTREMITIES: No cyanosis. No edema. GRISELDA hose to BLE. NEUROLOGICAL: AO x3. normal speech. moving all extremities. Assessment/Plan Problem List: (1) Lung mass Status: Acute Plan: --Right upper lobe lung mass infiltrating the cervical spine. most consistent with lung cancer. --CT chest, last week showed a mass in the right upper lobe of the lung that extends into the right T4 vertebral body and has some lytic destruction of the ribs. --MRI spine on October 04 showed 8.5 x 7.5 cm RUL lung mass that extends into the T2, T3 and T4 vertebral body and into the thoracic spinal canal through the neural foramina displacing a thoracic cord consistent with Pancoast tumor. --Radiation oncology and Neurosurgery following --on Decadron 4mg IV q6 --will need PET scan outpatient as well as MRI brain for staging. 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 --treated with Alkeran and Prednisone from 07/2015 to 07/2016, then Alkeran d/c from [facility]. 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 Plan 1. Plan for #2/20 XRT tomorrow. 2. Continue pain medications prn 3. If pain still uncontrolled tomorrow, he may benefit from palliative consult. 4. Once discharged, he will need restaging with PET CT. Attending Statement The exam, history, and the medical decision-making described in the above note were completed with the assistance of the mid-level provider. I reviewed and agree with the findings presented. I attest that I had a [id number] encounter with the patient on the same day, and personally performed and documented my assessment and findings in the medical record. Resting more comfortably this afternoon. Feels better with Dilaudid and Fentanyl patch changed this AM. Anticipate need to increase Fentanyl patch dose. Monitor response to XRT. Dilaudid seems more effective in alleviating pain. Monitor for constipation. Sneha Dean Oct 17, 2016 08:33 Ju Spears MD Oct 17, 2016 13:28
[2016-10-17] MEDS: SODIUM CHLORIDE 0.9% FLUSH 5 ML FLUSH FLUSH SCH ×2 (08:34→20:58)
[2016-10-17 10:46] LABS: AUTOMATED NEUTROPHIL # 13.2 TH/MM3 (1.8-7.7); HEMATOCRIT 39.1 % (39.0-51.0); LYMPH % 4.5 % (9.0-44.0); LYMPHOCYTE # 0.7 TH/MM3 (1.0-4.8); MEAN CELL VOLUME 94.7 FL (80.0-100.0); MEAN CORPUSCULAR HEMOGLOBIN 31.6 PG (27.0-34.0); MEAN CORPUSCULAR HGB CONC 33.4 % (32.0-36.0); MONO % 7.9 % (0.0-8.0); NEUT % 87.6 % (16.0-70.0); PLATELET COUNT 194 TH/MM3 (150-450); RED BLOOD COUNT 4.13 MIL/MM3 (4.50-5.90); RED CELL DISTRIBUTION WIDTH 14.3 % (11.6-17.2)
[2016-10-17 10:58] LABS: HEMO FLAGS AUTO DIFF
--- NOTE | 2016-10-17 11:38 | HHI.PR ---
Subjective Remarks Pain is uncontrolled with morphine. He would like something stronger. No other complaints otherwise. Objective Vitals Vital Signs Date Time Temp Pulse Resp B/P Pulse Ox O2 Delivery O2 Flow Rate FiO2 10/17/16 08:00 97.6 60 16 144/78 98 10/17/16 06:35 19 10/17/16 04:00 97.3 60 18 142/74 98 10/17/16 01:30 20 10/17/16 00:00 97.4 63 18 142/76 98 10/16/16 20:00 97.6 66 17 131/78 98 10/16/16 16:00 97.6 64 16 126/76 100 10/16/16 12:00 97.5 65 16 152/84 98 I/O 10/16/16 10/16/16 10/16/16 10/17/16 10/17/16 10/17/16 07:00 15:00 23:00 07:00 15:00 23:00 Intake Total 240 ml 720 ml 480 ml 240 ml Output Total 350 ml 400 ml 450 ml 750 ml Balance -110 ml 320 ml 30 ml -510 ml Intake Oral 240 ml 720 ml 480 ml 240 ml Output Urine Total 350 ml 400 ml 450 ml 750 ml # Bowel Movements 1 Result Diagram: 10/17/16 0853 10/16/16 1347 Objective Remarks GENERAL: This is a well-nourished, well-developed patient, in no apparent distress. CARDIOVASCULAR: Normal rate and regular rhythm without murmurs, gallops, or rubs. RESPIRATORY: Good respiratory efforts. Breath sounds equal and clear to auscultation bilaterally. GASTROINTESTINAL: Abdomen soft, non-tender, non-distended. Normal active bowel sounds MUSCULOSKELETAL: Tender to palpation over medial right scapula. Extremities without cyanosis, or edema. NEURO: Alert & Oriented x4 to person, place, time, situation. Moves all ext x4 PSYCH: Appropriate mood and affect. A/P Assessment and Plan 70 year-old male with: Pancoast tumor: CT of the chest outpatient showed a right upper lobe lung mass extending into the vertebral body with some lytic destruction of the ribs. Outpatient MRI of the spine with reports of a 8 x 7 cm RUL lung mass that extends into the T2, T3 and T4 vertebral body and into the thoracic spinal canal through the neural foramina displacing a thoracic cord consistent with Pancoast tumor. - Appreciate oncology and neurosurgery following. Status post CT-guided biopsy which showed melanoma. Patient currently getting radiation. Next session on Tuesday. - Pain is better controlled gabapentin, baclofen, Lortab, fentanyl, change IV morphine to Dilaudid as needed. - Decadron IV per neurosurgery. Multiple myeloma: Followed by oncology. He was restarted on Alkeran and prednisone in August. - Further therapy per oncology Elevated blood pressure: No known history of hypertension. High-dose steroid and pain probably contributing. Patient probably has underlying hypertension. - Start lisinopril. - Vasotec as needed. Monitor closely. 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 Continue home medications as indicated. He denies any history of diabetes. Ekaterina Aguirre MD Oct 17, 2016 11:38
[2016-10-17] MEDS: HYDROmorphone HCL PF 2 MG/ML VIAL IV PUSH PRN ×2 (11:59→20:54)
[2016-10-17 12:00] VITALS: BP 133/73; PULSE 65; RESP 16; TEMP 98.3; O2SAT 98
[2016-10-17] MEDS: fentaNYL 50 MCG/HR PATCH TD SCH (12:04)
[2016-10-17] MEDS ORDERED: REMOVE OLD PATCH T-DERMAL SCH (13:00)
[2016-10-17 13:47] LABS: BANDS 4 % (0-6); METAMYELOCYTES 3 % (0-1); NEUTROPHIL # MANUAL DIFF 13.2 TH/MM3 (1.8-7.7); PLATELET ESTIMATE SMEAR NORMAL (NORMAL); PLATELET MORPHOLOGY NORMAL (NORMAL); POLYS (SEG NEUTROPHILS) 81 % (16-70); SCAN/DIFF FINAL DIFF MANUAL; WBC DIFF SAMPLE 100
[2016-10-17 16:00] VITALS: BP 135/74; PULSE 63; RESP 16; TEMP 97.7; O2SAT 98
[2016-10-17] MEDS: PANTOPRAZOLE SODIUM 40 MG VIAL IV PUSH SCH (18:02)
[2016-10-17] MEDS: MAGNESIUM HYDROXIDE SUSP 30 ML CUP PO PRN (19:13)
[2016-10-17 20:00] VITALS: BP 121/66; PULSE 61; RESP 18; TEMP 96; O2SAT 96
[2016-10-17] MEDS: SODIUM CHLORIDE 0.9% FLUSH 5 ML FLUSH FLUSH PRN (20:58)
[2016-10-17] MEDS: TAMSULOSIN HCL 0.4 MG CAP PO SCH (21:00)
[2016-10-18 00:23] VITALS: BP 109/69; PULSE 59; RESP 18; TEMP 98.8; O2SAT 95
[2016-10-18] MEDS: DEXAMETHASONE SOD PHOS 4 MG/ML VIAL IV PUSH SCH ×5 (00:26→23:23)
[2016-10-18] MEDS: SODIUM CHLORIDE 0.9% FLUSH 5 ML FLUSH FLUSH PRN ×3 (00:26→23:23)
[2016-10-18 04:00] VITALS: BP 125/71; PULSE 78; RESP 19; TEMP 96.7; O2SAT 97
[2016-10-18] MEDS: HYDROmorphone HCL 4 MG TAB PO PRN ×4 (05:20→21:29)
[2016-10-18 07:11] LABS: HEMATOCRIT 40.7 % (39.0-51.0); MEAN CELL VOLUME 96.5 FL (80.0-100.0); MEAN CORPUSCULAR HEMOGLOBIN 31.8 PG (27.0-34.0); MEAN CORPUSCULAR HGB CONC 32.9 % (32.0-36.0); PLATELET COUNT 180 TH/MM3 (150-450); RED BLOOD COUNT 4.21 MIL/MM3 (4.50-5.90); RED CELL DISTRIBUTION WIDTH 14.6 % (11.6-17.2); REVIEW FLAG FINAL; WHITE BLOOD COUNT 19.7 TH/MM3 (4.0-11.0)
[2016-10-18 07:42] LABS: BICARBONATE 27.3 MEQ/L (21.0-32.0); POTASSIUM 4.3 MEQ/L (3.5-5.1)
[2016-10-18 07:52] VITALS: BP 135/69; PULSE 63; RESP 18; TEMP 96.5; O2SAT 97
[2016-10-18] MEDS: GABAPENTIN 400 MG CAP PO SCH ×3 (07:53→18:00)
[2016-10-18] MEDS: DOCUSATE SODIUM 50 MG/SENNA 8.6 MG TAB PO SCH ×2 (07:53→21:25)
[2016-10-18] MEDS: LISINOPRIL 10 MG TAB PO SCH (07:53)
[2016-10-18] MEDS: BACLOFEN 10 MG TAB PO SCH ×3 (07:53→18:00)
[2016-10-18] MEDS: HYDROmorphone HCL PF 2 MG/ML VIAL IV PUSH PRN ×4 (07:54→23:20)
[2016-10-18] MEDS: SODIUM CHLORIDE 0.9% FLUSH 5 ML FLUSH FLUSH SCH ×2 (07:54→21:26)
--- NOTE | 2016-10-18 09:14 | HHI.PR ---
Subjective Remarks Patient reports that he is still having pain involving the right shoulder and scapula. Dilaudid IV is helping. No longer having lower back pain. Objective Vitals Vital Signs Date Time Temp Pulse Resp B/P Pulse Ox O2 Delivery O2 Flow Rate FiO2 10/18/16 07:52 96.5 63 18 135/69 97 10/18/16 04:00 96.7 78 19 125/71 97 10/18/16 00:23 98.8 59 18 109/69 95 10/17/16 20:00 96.0 61 18 121/66 96 10/17/16 16:00 97.7 63 16 135/74 98 10/17/16 12:00 98.3 65 16 133/73 98 I/O 10/17/16 10/17/16 10/17/16 10/18/16 10/18/16 10/18/16 07:00 15:00 23:00 07:00 15:00 23:00 Intake Total 240 ml 720 ml 480 ml 480 ml Output Total 750 ml 750 ml 750 ml Balance -510 ml 720 ml -270 ml -270 ml Intake Oral 240 ml 720 ml 480 ml 480 ml Output Urine Total 750 ml 750 ml 750 ml # Voids 4 # Bowel Movements 1 Result Diagram: 10/18/1636 10/18/16 0636 Objective Remarks GENERAL: This is a well-nourished, well-developed patient, in no apparent distress. CARDIOVASCULAR: Normal rate and regular rhythm without murmurs, gallops, or rubs. RESPIRATORY: Good respiratory efforts. Breath sounds equal and clear to auscultation bilaterally. GASTROINTESTINAL: Abdomen soft, non-tender, non-distended. Normal active bowel sounds MUSCULOSKELETAL: Tender to palpation over medial right scapula. Extremities without cyanosis, or edema. NEURO: Alert & Oriented x4 to person, place, time, situation. Moves all ext x4 PSYCH: Appropriate mood and affect. A/P Assessment and Plan 70 year-old male with: Pancoast tumor: CT of the chest outpatient showed a right upper lobe lung mass extending into the vertebral body with some lytic destruction of the ribs. Outpatient MRI of the spine with reports of a 8 x 7 cm RUL lung mass that extends into the T2, T3 and T4 vertebral body and into the thoracic spinal canal through the neural foramina displacing a thoracic cord consistent with Pancoast tumor. - Appreciate oncology and neurosurgery following. Status post CT-guided biopsy which showed melanoma. Patient currently getting radiation. Next session today. - Pain control has been an issue but overall improving. Continue gabapentin, baclofen, Lortab, fentanyl, IV Dilaudid as needed. - Decadron IV per neurosurgery. Multiple myeloma: Followed by oncology. He was restarted on Alkeran and prednisone in August. - Further therapy per oncology Elevated blood pressure: No known history of hypertension. High-dose steroid and pain probably contributing. Patient probably has underlying hypertension. -Started on lisinopril. Now controlled. - Vasotec as needed. Monitor closely. 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 Continue home medications as indicated. He denies any history of diabetes. Ekaterina Aguirre MD Oct 18, 2016 09:14
--- NOTE | 2016-10-18 11:08 | HHI.NSPN ---
History Chief Complaint: awaiting RT Interval History He has been on a fentanyl patch and his pain remains a 6-910. The pathology from the lung bx was consistent with multiple myeloma. He did well with PT and radiation therapy. He is afraid to participate in PT for fear of falls. Review of Systems General: Negative for: fever, chills, insomnia Respiratory: Negative for: shortness of breath, cough, sputum Cardiovascular: Positive for: chest pain Gastrointestinal: Positive for: constipation, Negative for: nausea, vomitting , diarrhea Genitourinary: Negative for: urinary burning, urinary frequency, urinary urgency Exam Results Vital Signs Date Time Temp Pulse Resp B/P Pulse Ox O2 Delivery O2 Flow Rate FiO2 10/18/16 07:52 96.5 63 18 135/69 97 Intake and Output 10/17/16 10/17/16 10/18/16 08:00 16:00 00:00 Intake Total 240 ml 720 ml 480 ml Output Total 750 ml 750 ml Balance -510 ml 720 ml -270 ml Physical Examination Alert, speech fluent, oriented x 3, mood labile Moving both upper extremities well, peripheral neuropathy unchanged. The pain is localized to the right shoulder, does not extend to the arm or thorax Hip flexors remain 4+/5 bilaterally with no new weakness or numbness Lab, Micro, Other Results Laboratory Tests Test 10/18/16 06:36 White Blood Count 19.7 TH/MM3 Red Blood Count 4.21 MIL/MM3 Hemoglobin 13.4 GM/DL Hematocrit 40.7 % Mean Corpuscular Volume 96.5 FL Mean Corpuscular Hemoglobin 31.8 PG Mean Corpuscular Hemoglobin 32.9 % Concent Red Cell Distribution Width 14.6 % Platelet Count 180 TH/MM3 Mean Platelet Volume 9.2 FL Sodium Level 139 MEQ/L Potassium Level 4.3 MEQ/L Chloride Level 102 MEQ/L Carbon Dioxide Level 27.3 MEQ/L Anion Gap 10 MEQ/L Blood Urea Nitrogen 28 MG/DL Creatinine 0.79 MG/DL Estimat Glomerular Filtration 97 ML/MIN Rate Random Glucose 206 MG/DL Calcium Level 8.7 MG/DL Medical Decision Making Impression and Plan Multiple myeloma with epidural and pleural extension, T2 to T4 and right brachial plexus. He is awaiting his second treatment today. Bowel management was discussed and enemas were added. Plan RT followed by chemo, decadron slow taper, pain management. He is stable neurologically at this time. CT 4 weeks after RT will be obtained to establish alignment and estimate bony loss after treatment. Total Minutes: 10 Zenon Aldrich Oct 18, 2016 11:07
[2016-10-18] MEDS: ONDANSETRON HCL 4 MG/2 ML VIAL IVP PRN (11:48)
[2016-10-18] MEDS ORDERED: MAGNESIUM HYDROXIDE SUSP 30 ML CUP PO PRN (12:00)
[2016-10-18] MEDS ORDERED: SOD PHOSPHATE/SOD BIPHOSPHATE (ADULT) ENEMA 133ML PR PRN (12:00)
--- NOTE | 2016-10-18 13:45 | PD.ONC.PN ---
Subjective Subjective Remarks Afebrile overnight. Patient resting comfortably. He is just back from radiation. He states pain is controlled. He is happy with his pain regimen. Objective Data Date Time Temp Pulse Resp B/P Pulse Ox O2 Delivery O2 Flow Rate FiO2 10/18/16 07:52 96.5 63 18 135/69 97 10/18/16 04:00 96.7 78 19 125/71 97 10/18/16 00:23 98.8 59 18 109/69 95 10/17/16 20:00 96.0 61 18 121/66 96 10/17/16 16:00 97.7 63 16 135/74 98 10/18/16 10/18/16 10/18/16 07:00 15:00 23:00 Intake Total 480 ml 120 ml Output Total 750 ml Balance -270 ml 120 ml Result Diagram: 10/18/16 0636 10/18/16 0636 Laboratory Results Laboratory Tests Test 10/18/16 06:36 White Blood Count 19.7 TH/MM3 Red Blood Count 4.21 MIL/MM3 Hemoglobin 13.4 GM/DL Hematocrit 40.7 % Mean Corpuscular Volume 96.5 FL Mean Corpuscular Hemoglobin 31.8 PG Mean Corpuscular Hemoglobin 32.9 % Concent Red Cell Distribution Width 14.6 % Platelet Count 180 TH/MM3 Mean Platelet Volume 9.2 FL Sodium Level 139 MEQ/L Potassium Level 4.3 MEQ/L Chloride Level 102 MEQ/L Carbon Dioxide Level 27.3 MEQ/L Anion Gap 10 MEQ/L Blood Urea Nitrogen 28 MG/DL Creatinine 0.79 MG/DL Estimat Glomerular Filtration 97 ML/MIN Rate Random Glucose 206 MG/DL Calcium Level 8.7 MG/DL Administered Medications Medications (Trade) Dose Ordered Sig/Garry Route PRN Reason Start Time Stop Time Status Last Admin Dose Admin IV Flush (NS Flush) 2 ml UNSCH PRN FLUSH FLUSH AFTER USING IV ACCESS 10/11/16 16:30 10/18/16 05:21 IV Flush (NS Flush) 2 ml BID FLUSH 10/11/16 21:00 10/18/16 07:54 Ondansetron HCl (Zofran Inj) 4 mg Q6H PRN IVP NAUSEA OR VOMITING 10/11/16 16:30 10/18/16 11:48 Magnesium Hydroxide (Milk Of Magnesia Liq) 30 ml Q12H PRN PO CONSTIPATION 10/11/16 16:30 10/17/16 19:13 Temazepam (Restoril) 15 mg HS PRN PO INSOMNIA 10/11/16 16:30 10/13/16 23:19 Baclofen (Lioresal) 10 mg TID PO 10/11/16 18:00 10/18/16 07:53 Tamsulosin HCl (Flomax) 0.4 mg HS PO 10/11/16 21:00 10/17/16 21:00 Dexamethasone Sodium Phosphate (Decadron Inj) 4 mg Q6HR IV PUSH 10/11/16 18:00 10/18/16 05:20 Pantoprazole Sodium (Protonix Inj) 40 mg Q24H IV PUSH 10/11/16 18:00 10/17/16 18:02 Gabapentin (Neurontin) 400 mg TID PO 10/11/16 18:00 10/18/16 07:53 Fentanyl (Duragesic 50 Mcg Patch.72 Hr) 1 patch Q3D TD 10/14/16 13:00 10/17/16 12:04 Miscellaneous Information 1 Q3D T-DERMAL 10/17/16 13:00 10/17/16 12:04 Hydromorphone HCl (Dilaudid) 4 mg Q4H PRN PO PAIN SCALE 5 TO 10 10/15/16 09:00 10/18/16 10:06 Senna/Docusate Sodium (Ariela-Colace) 1 tab BID PO 10/15/16 21:00 10/18/16 07:53 Lisinopril (Prinivil) 10 mg DAILY PO 10/16/16 09:00 10/18/16 07:53 Hydromorphone HCl (Dilaudid Pf Inj) 2 mg DAILY PRN IV PUSH GIVE PRIOR TO RADIATION 10/16/16 14:45 10/18/16 11:48 Hydromorphone HCl (Dilaudid Pf Inj) 2 mg Q4H PRN IV PUSH BREAKTHROUGH PAIN 10/17/16 11:45 10/17/16 20:54 Objective Remarks GENERAL: Elderly male, sitting upright in room. SKIN: Warm and dry. HEAD: Normocephalic. EYES: No injection or drainage. NECK: Supple, trachea midline. CARDIOVASCULAR: +S1/S2. RESPIRATORY: Breath sounds equal bilaterally. No accessory muscle use. GASTROINTESTINAL: Abdomen soft, non-tender, nondistended. EXTREMITIES: No cyanosis. NEUROLOGICAL: awake and alert, normal speech Assessment/Plan Problem List: (1) Multiple myeloma Status: Acute Plan: --CT chest, last week showed a mass in the right upper lobe of the lung that extends into the right T4 vertebral body and has some lytic destruction of the ribs. --MRI spine on October 04 showed 8.5 x 7.5 cm RUL lung mass that extends into the T2, T3 and T4 vertebral body and into the thoracic spinal canal through the neural foramina displacing a thoracic cord consistent with Pancoast tumor. Pathology shows multiple myeloma. --Radiation oncology and Neurosurgery following --on Decadron 4mg IV q6 --will need PET scan outpatient as well as MRI brain for staging. 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 --treated with Alkeran and Prednisone from 07/2015 to 07/2016, then Alkeran d/c from market. 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 Plan 1. continue XRT today 2. continue pain management 3. plan for outpatient PET CT once discharged Attending Statement still has neck pain s/p XRT today. Need PT continue present plan. The exam, history, and the medical decision-making described in the above note were completed with the assistance of the mid-level provider. I reviewed and agree with the findings presented. I attest that I had a [id number] encounter with the patient on the same day, and personally performed and documented my assessment and findings in the medical record. Ana Cristina Starkey Oct 18, 2016 13:45 Alia Lang MD Oct 18, 2016 18:56
[2016-10-18 16:00] VITALS: BP 130/72; PULSE 66; RESP 20; TEMP 97; O2SAT 98
[2016-10-18] MEDS: PANTOPRAZOLE SODIUM 40 MG VIAL IV PUSH SCH (18:35)
[2016-10-18 20:00] VITALS: BP 129/67; PULSE 66; RESP 18; TEMP 96.9; O2SAT 97
[2016-10-18] MEDS: TAMSULOSIN HCL 0.4 MG CAP PO SCH (21:25)
[2016-10-19] VITALS: BP 106/55; PULSE 66; RESP 18; TEMP 97.3; O2SAT 97
[2016-10-19] MEDS: HYDROmorphone HCL 4 MG TAB PO PRN ×6 (01:28→23:54)
[2016-10-19 04:00] VITALS: BP 120/69; PULSE 68; RESP 18; TEMP 96.9; O2SAT 98
[2016-10-19] MEDS: DEXAMETHASONE SOD PHOS 4 MG/ML VIAL IV PUSH SCH ×4 (06:06→23:54)
[2016-10-19 06:31] LABS: HEMATOCRIT 38.8 % (39.0-51.0); MEAN CORPUSCULAR HEMOGLOBIN 32.6 PG (27.0-34.0); MEAN CORPUSCULAR HGB CONC 34.3 % (32.0-36.0); PLATELET COUNT 170 TH/MM3 (150-450); RED BLOOD COUNT 4.08 MIL/MM3 (4.50-5.90); RED CELL DISTRIBUTION WIDTH 14.4 % (11.6-17.2); REVIEW FLAG FINAL; WHITE BLOOD COUNT 17.5 TH/MM3 (4.0-11.0)
[2016-10-19 07:49] VITALS: BP 120/61; PULSE 60; RESP 20; TEMP 96.4; O2SAT 96
[2016-10-19] MEDS ORDERED: DEXTROSE 50% IN WATER 50 ML VIAL(D50) IV PUSH PRN (08:15)
[2016-10-19] MEDS ORDERED: GLUCAGON 1 MG/ML VIAL OTHER PRN (08:15)
[2016-10-19] MEDS: SODIUM CHLORIDE 0.9% FLUSH 5 ML FLUSH FLUSH SCH ×2 (09:00→22:14)
[2016-10-19] MEDS: DOCUSATE SODIUM 50 MG/SENNA 8.6 MG TAB PO SCH (09:00)
[2016-10-19 09:20] LABS: ALBUMIN SPE 3.57 GM/DL (3.50-5.00); ALPHA 1 GLOBULIN 0.19 GM/DL (0.11-0.29); ALPHA 2 GLOBULIN 0.99 GM/DL (0.22-1.00); BETA GLOBULINS (SPE) 0.69 GM/DL (0.53-1.03)
--- NOTE | 2016-10-19 09:31 | HHI.PR ---
Subjective Remarks Follow up: Pancoast tumor, Multiple myeloma, Elevated blood pressure, BPH, neuropathy and elevated blood glucose. Patient seen in room reports that his pain has improved and is now well controlled. Patient had complaints regarding bilateral lower extremity weakness and liquid stool. Patient reports he is unable to walk without a walker and physical assistance. Patient reports he is passing clear liquid stool every time he eats. Patient denies abdominal cramping, pain nausea or vomiting. Patient does report he is decreasing his by mouth intake to try to avoid the clear liquid stool. Objective Vitals Vital Signs Date Time Temp Pulse Resp B/P Pulse Ox O2 Delivery O2 Flow Rate FiO2 10/19/16 07:49 96.4 60 20 120/61 96 10/19/16 04:00 96.9 68 18 120/69 98 10/19/16 00:00 97.3 66 18 106/55 97 10/18/16 20:00 96.9 66 18 129/67 97 10/18/16 16:00 97.0 66 20 130/72 98 I/O 10/18/16 10/18/16 10/18/16 10/19/16 10/19/16 10/19/16 07:00 15:00 23:00 07:00 15:00 23:00 Intake Total 480 ml 480 ml 580 ml Output Total 750 ml 200 ml Balance -270 ml 480 ml 380 ml Intake Oral 480 ml 480 ml 580 ml Output Urine Total 750 ml 200 ml # Voids 0 1 1 # Bowel Movements 1 2 Result Diagram: 10/19/16 0606 10/18/16 0636 Imaging Last Impressions Chest X-Ray 10/12/16 1600 Signed Impressions: Service Date/Time: Wednesday, October 12, 2016 14:32 - CONCLUSION: No pneumothorax is present following recent right lung/pleural based mass biopsy. Perry Erazo MD Lung Biopsy CT 10/12/16 1157 Signed Impressions: Service Date/Time: Wednesday, October 12, 2016 13:01 - CONCLUSION: Uncomplicated CT guided biopsy of the mass at the apex of the right hemithorax which may be pleural or parenchymal. Perry Erazo MD Objective Remarks GENERAL: This is a well-nourished, well-developed patient, in no apparent distress. CARDIOVASCULAR: Normal rate and regular rhythm without murmurs, gallops, or rubs. RESPIRATORY: Good respiratory efforts. Breath sounds equal and clear to auscultation bilaterally. GASTROINTESTINAL: Abdomen soft, non-tender, non-distended. Normal active bowel sounds MUSCULOSKELETAL: Extremities without cyanosis, or edema. Patient has bilateral foot drop. Patient has 3-4 out of 5 bilateral lower extremity strength and 5 out of 5 upper extremity strength NEURO: Alert & Oriented x4 to person, place, time, situation. Moves all ext x4 PSYCH: Appropriate mood and affect. Procedures Currently undergoing radiation therapy Medications and IVs Current Medications Medications (Trade) Dose Ordered Sig/Garry Route Start Time Stop Time Status Last Admin (NS Flush) 2 ml UNSCH PRN FLUSH 10/11/16 16:30 10/18/16 23:23 (NS Flush) 2 ml BID FLUSH 10/11/16 21:00 10/19/16 09:00 (Tylenol) 650 mg Q4H PRN PO 10/11/16 16:30 (Zofran Inj) 4 mg Q6H PRN IVP 10/11/16 16:30 10/18/16 11:48 (Dulcolax Supp) 10 mg DAILY PRN [place] 10/11/16 16:30 10/18/16 21:25 (Milk Of Magnesia Liq) 30 ml Q12H PRN PO 10/11/16 16:30 10/17/16 19:13 (Restoril) 15 mg HS PRN PO 10/11/16 16:30 10/13/16 23:19 (Narcan Inj) 0.4 mg UNSCH PRN IV 10/11/16 16:30 (Lioresal) 10 mg TID PO 10/11/16 18:00 10/19/16 10:18 (Flomax) 0.4 mg HS PO 10/11/16 21:00 10/18/16 21:25 (Decadron Inj) 4 mg Q6HR IV PUSH 10/11/16 18:00 10/19/16 06:06 (Protonix Inj) 40 mg Q24H IV PUSH 10/11/16 18:00 10/18/16 18:35 (Neurontin) 400 mg TID PO 10/11/16 18:00 10/19/16 10:18 (Duragesic 50 Mcg Patch.72 Hr) 1 patch Q3D TD 10/14/16 13:00 10/17/16 12:04 Miscellaneous Information 1 Q3D T-DERMAL 10/17/16 13:00 10/17/16 12:04 (Dilaudid) 2 mg Q4H PRN PO 10/15/16 09:00 (Dilaudid) 4 mg Q4H PRN PO 10/15/16 09:00 10/19/16 10:18 (Ariela-Colace) 1 tab BID PO 10/15/16 21:00 Hold 10/18/16 21:25 (Prinivil) 10 mg DAILY PO 10/16/16 09:00 10/19/16 10:18 (Dilaudid Pf Inj) 2 mg DAILY PRN IV PUSH 10/16/16 14:45 10/18/16 11:48 (Dilaudid Pf Inj) 2 mg Q4H PRN IV PUSH 10/17/16 11:45 10/18/16 23:20 (Milk Of Magnesia Liq) 30 ml DAILY PRN PO 10/18/16 12:00 (Fleets Enema (Adult)) 133 ml UNSCH PRN [place] 10/18/16 12:00 10/19/16 06:14 (D50w (Vial) Inj) 25 ml UNSCH PRN IV PUSH 10/19/16 08:15 (Glucagon Inj) 1 mg UNSCH PRN OTHER 10/19/16 08:15 A/P Assessment and Plan 70 year-old male with: Pancoast tumor: CT of the chest outpatient showed a right upper lobe lung mass extending into the vertebral body with some lytic destruction of the ribs. Outpatient MRI of the spine with reports of a 8 x 7 cm RUL lung mass that extends into the T2, T3 and T4 vertebral body and into the thoracic spinal canal through the neural foramina displacing a thoracic cord consistent with Pancoast tumor. - Appreciate oncology and neurosurgery following. Status post CT-guided biopsy which showed melanoma. Patient currently getting radiation. Next session today. - Pain control has been an issue but overall improving. Continue gabapentin, baclofen, Lortab, fentanyl, IV Dilaudid as needed. - Decadron IV per neurosurgery. Multiple myeloma: Followed by oncology. He was restarted on Alkeran and prednisone in August. - Further therapy per oncology Elevated blood pressure: No known history of hypertension. High-dose steroid and pain probably contributing. Patient probably has underlying hypertension. - continue lisinopril. Now controlled. - Vasotec as needed. Monitor closely. Diarrhea The pt received an enema. - hold Ariela-Colace. - Encourage by mouth hydration. Elevated blood glucose -patient denies history of diabetes , likely secondary to steroids - Start low-dose sliding scale insulin coverage with Accu-Cheks before meals at bedtime -Monitor for signs of hypoglycemia Lower extremity weakness -Continue physical therapy. Add OT. 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 DVT prophylaxis with SCDs Discussed plan of care with patient and nursing Written by Selin Pierre, acting as scribe for Dr. Jacobs on 10/19/16 at 09:30. Attending Statement The documentation accurately reflects the work performed [id number] by me on at 09:30. Selin Pierre Oct 19, 2016 09:31 Jose Jacobs DO Oct 19, 2016 12:50
--- NOTE | 2016-10-19 09:39 | HHI.NSPN ---
History Chief Complaint: new diarrhea Interval History He has been on a fentanyl patch and IV hydromorphone prn. His pain remains a 6-9 /10 but is a little better. The pathology from the lung bx was consistent with multiple myeloma light chain positive. He did well with PT but needs 2 person assist to prevent falls at this time and radiation therapy. He is afraid to participate in PT for fear of falls. Review of Systems General: Negative for: fever, chills, insomnia Respiratory: Negative for: shortness of breath, cough, sputum Cardiovascular: Negative for: chest pain, palpitations, orthopnea Gastrointestinal: Positive for: diarrhea Genitourinary: Negative for: urinary burning, urinary frequency, urinary urgency Exam Results Vital Signs Date Time Temp Pulse Resp B/P Pulse Ox O2 Delivery O2 Flow Rate FiO2 10/19/16 07:49 96.4 60 20 120/61 96 Intake and Output 10/18/16 10/18/16 10/19/16 08:00 16:00 00:00 Intake Total 480 ml 840 ml 220 ml Output Total 750 ml 200 ml Balance -270 ml 840 ml 20 ml Physical Examination Alert, speech fluent, oriented x 3, mood improved Moving both upper extremities well, peripheral neuropathy in the hands and lower legs unchanged. The pain is localized to the right shoulder, does not extend to the arm or thorax Hip flexors remain 5/5 bilaterally with no new weakness or numbness Abd firm but non tender with normal BS Lab, Micro, Other Results Laboratory Tests Test 10/19/16 06:06 White Blood Count 17.5 TH/MM3 Red Blood Count 4.08 MIL/MM3 Hemoglobin 13.3 GM/DL Hematocrit 38.8 % Mean Corpuscular Volume 95.0 FL Mean Corpuscular Hemoglobin 32.6 PG Mean Corpuscular Hemoglobin 34.3 % Concent Red Cell Distribution Width 14.4 % Platelet Count 170 TH/MM3 Mean Platelet Volume 8.9 FL Medical Decision Making Impression and Plan Multiple myeloma with epidural and pleural extension, T2 to T4 and right brachial plexus. He is awaiting his third treatment today. He had several BMs after an enema and has some liquid watery stools this am. Plan RT followed by chemo, decadron slow taper, pain management. He is stable neurologically at this time. CT 4 weeks after the end of RT will be obtained to establish alignment and estimate bony loss after treatment. Total Minutes: 10 Zenon Aldrich Oct 19, 2016 09:39
--- NOTE | 2016-10-19 10:13 | PD.ONC.PN ---
Subjective Subjective Remarks Patient having some loose stools today. He had enema this AM. Pain is controlled with current regimen. Objective Data Date Time Temp Pulse Resp B/P Pulse Ox O2 Delivery O2 Flow Rate FiO2 10/19/16 07:49 96.4 60 20 120/61 96 10/19/16 04:00 96.9 68 18 120/69 98 10/19/16 00:00 97.3 66 18 106/55 97 10/18/16 20:00 96.9 66 18 129/67 97 10/18/16 16:00 97.0 66 20 130/72 98 Result Diagram: 10/19/16 0606 10/18/16 0636 Laboratory Results Laboratory Tests Test 10/19/16 06:06 White Blood Count 17.5 TH/MM3 Red Blood Count 4.08 MIL/MM3 Hemoglobin 13.3 GM/DL Hematocrit 38.8 % Mean Corpuscular Volume 95.0 FL Mean Corpuscular Hemoglobin 32.6 PG Mean Corpuscular Hemoglobin 34.3 % Concent Red Cell Distribution Width 14.4 % Platelet Count 170 TH/MM3 Mean Platelet Volume 8.9 FL Administered Medications Medications (Trade) Dose Ordered Sig/Garry Route PRN Reason Start Time Stop Time Status Last Admin Dose Admin IV Flush (NS Flush) 2 ml UNSCH PRN FLUSH FLUSH AFTER USING IV ACCESS 10/11/16 16:30 10/18/16 23:23 IV Flush (NS Flush) 2 ml BID FLUSH 10/11/16 21:00 10/18/16 21:26 Ondansetron HCl (Zofran Inj) 4 mg Q6H PRN IVP NAUSEA OR VOMITING 10/11/16 16:30 10/18/16 11:48 Bisacodyl (Dulcolax Supp) 10 mg DAILY PRN [place] CONSTIPATION 10/11/16 16:30 10/18/16 21:25 Magnesium Hydroxide (Milk Of Magnesia Liq) 30 ml Q12H PRN PO CONSTIPATION 10/11/16 16:30 10/17/16 19:13 Temazepam (Restoril) 15 mg HS PRN PO INSOMNIA 10/11/16 16:30 10/13/16 23:19 Baclofen (Lioresal) 10 mg TID PO 10/11/16 18:00 10/18/16 15:11 Tamsulosin HCl (Flomax) 0.4 mg HS PO 10/11/16 21:00 10/18/16 21:25 Dexamethasone Sodium Phosphate (Decadron Inj) 4 mg Q6HR IV PUSH 10/11/16 18:00 10/19/16 06:06 Pantoprazole Sodium (Protonix Inj) 40 mg Q24H IV PUSH 10/11/16 18:00 10/18/16 18:35 Gabapentin (Neurontin) 400 mg TID PO 10/11/16 18:00 10/18/16 15:11 Fentanyl (Duragesic 50 Mcg Patch.72 Hr) 1 patch Q3D TD 10/14/16 13:00 10/17/16 12:04 Miscellaneous Information 1 Q3D T-DERMAL 10/17/16 13:00 10/17/16 12:04 Hydromorphone HCl (Dilaudid) 4 mg Q4H PRN PO PAIN SCALE 5 TO 10 10/15/16 09:00 10/19/16 06:13 Senna/Docusate Sodium (Ariela-Colace) 1 tab BID PO 10/15/16 21:00 Hold 10/18/16 21:25 Lisinopril (Prinivil) 10 mg DAILY PO 10/16/16 09:00 10/18/16 07:53 Hydromorphone HCl (Dilaudid Pf Inj) 2 mg DAILY PRN IV PUSH GIVE PRIOR TO RADIATION 10/16/16 14:45 10/18/16 11:48 Hydromorphone HCl (Dilaudid Pf Inj) 2 mg Q4H PRN IV PUSH BREAKTHROUGH PAIN 10/17/16 11:45 10/18/16 23:20 Sodium Biphosphate/ Sodium Phosphate (Fleets Enema (Adult)) 133 ml UNSCH PRN [place] CONSTIPATION 10/18/16 12:00 10/19/16 06:14 Objective Remarks GENERAL: Elderly male, sitting up in bed, eating breakfast. SKIN: Warm and dry. HEAD: Normocephalic. EYES: No injection or drainage. NECK: Supple, trachea midline. CARDIOVASCULAR: +S1/S2. RESPIRATORY: Breath sounds equal bilaterally. No accessory muscle use. GASTROINTESTINAL: Abdomen soft, non-tender, nondistended. EXTREMITIES: No cyanosis. NEUROLOGICAL: awake and alert, normal speech. able to move extremities. Assessment/Plan Problem List: (1) Multiple myeloma Status: Acute Plan: --CT chest, last week showed a mass in the right upper lobe of the lung that extends into the right T4 vertebral body and has some lytic destruction of the ribs. --MRI spine on October 04 showed 8.5 x 7.5 cm RUL lung mass that extends into the T2, T3 and T4 vertebral body and into the thoracic spinal canal through the neural foramina displacing a thoracic cord consistent with Pancoast tumor. Pathology shows multiple myeloma. --Radiation oncology and Neurosurgery following --on Decadron 4mg IV q6 --will need PET scan outpatient as well as MRI brain for staging. 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 --treated with Alkeran and Prednisone from 07/2015 to 07/2016, then Alkeran d/c from market. --started on Cytoxan and Decadron--did not work --08/2016: resumed Alkeran + prednisone --09/2016: pancoast tumor pathology shows MM--XRT started on 10/15 (2) Neuropathic pain Status: Acute Plan: --currently on Fentanyl + Dilaudid PO + dilaudid IV for breakthrough pain + Gabapentin + Baclofen Assessment 70y/o male with multiple myeloma, newly found pancoast tumor h/o Multiple myeloma h/o Arthritis BPH COPD Diabetes mellitus Hemorrhoids Hypercholesterolemia Osteopenia Colon cancer and now he has possible lung cancer. Plan 1. continue radiation 2. continue Fentanyl + Dilaudid, may consider increasing Fentanyl patch tomorrow during scheduled change. Attending Statement c/o loose BM neck pain is improving continue XRT The exam, history, and the medical decision-making described in the above note were completed with the assistance of the mid-level provider. I reviewed and agree with the findings presented. I attest that I had a [id number] encounter with the patient on the same day, and personally performed and documented my assessment and findings in the medical record. Ana Cristina Starkey Oct 19, 2016 10:13 Alia Lang MD Oct 19, 2016 19:57
[2016-10-19] MEDS: GABAPENTIN 400 MG CAP PO SCH ×3 (10:18→17:11)
[2016-10-19] MEDS: BACLOFEN 10 MG TAB PO SCH ×3 (10:18→17:11)
[2016-10-19] MEDS: LISINOPRIL 10 MG TAB PO SCH (10:18)
[2016-10-19] MEDS: INSULIN ASPART SUPPLEMENTAL SCALE SQ SCH ×3 (11:00→22:20)
[2016-10-19 12:00] VITALS: BP 107/60; PULSE 66; RESP 18; TEMP 96.3; O2SAT 96
[2016-10-19 15:48] VITALS: BP 127/64; PULSE 64; RESP 20; TEMP 97.1; O2SAT 96
[2016-10-19] MEDS: PANTOPRAZOLE SODIUM 40 MG VIAL IV PUSH SCH (17:10)
[2016-10-19] MEDS: ONDANSETRON HCL 4 MG/2 ML VIAL IVP PRN (17:10)
[2016-10-19] MEDS: HYDROmorphone HCL PF 2 MG/ML VIAL IV PUSH PRN (17:11)
[2016-10-19 20:00] VITALS: BP 122/63; PULSE 69; RESP 17; TEMP 97.6; O2SAT 99
[2016-10-19] MEDS: TAMSULOSIN HCL 0.4 MG CAP PO SCH (22:14)
[2016-10-20] VITALS: BP 125/69; PULSE 73; RESP 17; TEMP 96.6; O2SAT 98
[2016-10-20] MEDS: HYDROmorphone HCL 4 MG TAB PO PRN ×3 (03:53→20:03)
[2016-10-20 04:00] VITALS: BP 125/59; PULSE 76; RESP 18; TEMP 96.9; O2SAT 98
[2016-10-20] MEDS: INSULIN ASPART SUPPLEMENTAL SCALE SQ SCH ×4 (05:56→20:05)
[2016-10-20] MEDS: DEXAMETHASONE SOD PHOS 4 MG/ML VIAL IV PUSH SCH ×3 (05:57→18:00)
[2016-10-20 08:00] VITALS: BP 141/73; PULSE 59; RESP 16; TEMP 96.2; O2SAT 97
[2016-10-20] MEDS: LISINOPRIL 10 MG TAB PO SCH (08:45)
[2016-10-20] MEDS: BACLOFEN 10 MG TAB PO SCH ×3 (08:45→17:56)
[2016-10-20] MEDS: GABAPENTIN 400 MG CAP PO SCH ×3 (08:45→17:56)
[2016-10-20] MEDS: ONDANSETRON HCL 4 MG/2 ML VIAL IVP PRN (08:49)
[2016-10-20] MEDS: SODIUM CHLORIDE 0.9% FLUSH 5 ML FLUSH FLUSH SCH ×2 (08:51→20:03)
[2016-10-20 11:30] VITALS: BP 132/73; PULSE 63; RESP 16; TEMP 96.4; O2SAT 98
[2016-10-20] MEDS: HYDROmorphone HCL PF 2 MG/ML VIAL IV PUSH PRN (12:24)
[2016-10-20] MEDS ORDERED: fentaNYL 75 MCG/HR PATCH TD SCH (14:00)
--- NOTE | 2016-10-20 14:02 | PD.ONC.PN ---
Subjective Subjective Remarks Afebrile overnight. Patient continuing to have pain in right shoulder/back. Pain is improved with dilaudid pills. He is constipated today. Objective Data Date Time Temp Pulse Resp B/P Pulse Ox O2 Delivery O2 Flow Rate FiO2 10/20/16 12:30 16 10/20/16 11:30 96.4 63 16 132/73 98 10/20/16 08:00 96.2 59 16 141/73 97 10/20/16 04:00 96.9 76 18 125/59 98 10/20/16 00:00 96.6 73 17 125/69 98 10/19/16 20:00 97.6 69 17 122/63 99 10/19/16 15:48 97.1 64 20 127/64 96 10/20/16 10/20/16 10/20/16 07:00 15:00 23:00 Intake Total 240 ml Output Total 400 ml Balance -400 ml 240 ml Result Diagram: 10/19/16 0606 10/18/16 0636 Administered Medications Medications (Trade) Dose Ordered Sig/Garry Route PRN Reason Start Time Stop Time Status Last Admin Dose Admin IV Flush (NS Flush) 2 ml UNSCH PRN FLUSH FLUSH AFTER USING IV ACCESS 10/11/16 16:30 10/18/16 23:23 IV Flush (NS Flush) 2 ml BID FLUSH 10/11/16 21:00 10/20/16 08:51 Ondansetron HCl (Zofran Inj) 4 mg Q6H PRN IVP NAUSEA OR VOMITING 10/11/16 16:30 10/20/16 08:49 Bisacodyl (Dulcolax Supp) 10 mg DAILY PRN SC CONSTIPATION 10/11/16 16:30 10/18/16 21:25 Magnesium Hydroxide (Milk Of Magnesia Liq) 30 ml Q12H PRN PO CONSTIPATION 10/11/16 16:30 10/17/16 19:13 Temazepam (Restoril) 15 mg HS PRN PO INSOMNIA 10/11/16 16:30 10/13/16 23:19 Baclofen (Lioresal) 10 mg TID PO 10/11/16 18:00 10/20/16 12:23 Tamsulosin HCl (Flomax) 0.4 mg HS PO 10/11/16 21:00 10/19/16 22:14 Dexamethasone Sodium Phosphate (Decadron Inj) 4 mg Q6HR IV PUSH 10/11/16 18:00 10/20/16 12:23 Pantoprazole Sodium (Protonix Inj) 40 mg Q24H IV PUSH 10/11/16 18:00 10/19/16 17:10 Gabapentin (Neurontin) 400 mg TID PO 10/11/16 18:00 10/20/16 12:23 Hydromorphone HCl (Dilaudid) 4 mg Q4H PRN PO PAIN SCALE 5 TO 10 10/15/16 09:00 10/20/16 08:46 Lisinopril (Prinivil) 10 mg DAILY PO 10/16/16 09:00 10/20/16 08:45 Hydromorphone HCl (Dilaudid Pf Inj) 2 mg DAILY PRN IV PUSH GIVE PRIOR TO RADIATION 10/16/16 14:45 10/20/16 12:24 Hydromorphone HCl (Dilaudid Pf Inj) 2 mg Q4H PRN IV PUSH BREAKTHROUGH PAIN 10/17/16 11:45 10/18/16 23:20 Sodium Biphosphate/ Sodium Phosphate (Fleets Enema (Adult)) 133 ml UNSCH PRN SC CONSTIPATION 10/18/16 12:00 10/19/16 06:14 Objective Remarks GENERAL: Elderly male, lying in bed in nad. SKIN: Warm and dry. HEAD: Normocephalic. EYES: No injection or drainage. NECK: Supple, trachea midline. CARDIOVASCULAR: +S1/S2. RESPIRATORY: Breath sounds equal bilaterally. No accessory muscle use. GASTROINTESTINAL: Abdomen soft, non-tender, nondistended. EXTREMITIES: No cyanosis. NEUROLOGICAL: aox3. normal speech. moving extremities. Assessment/Plan Problem List: (1) Multiple myeloma Status: Acute Plan: --CT chest showed a mass in the right upper lobe of the lung that extends into the right T4 vertebral body and has some lytic destruction of the ribs. --MRI spine on October 04 showed 8.5 x 7.5 cm RUL lung mass that extends into the T2, T3 and T4 vertebral body and into the thoracic spinal canal through the neural foramina displacing a thoracic cord consistent with Pancoast tumor. Pathology shows multiple myeloma. --Radiation oncology and Neurosurgery following --on Decadron 4mg IV q6 --will need PET scan outpatient as well as MRI brain for staging. 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 --treated with Alkeran and Prednisone from 07/2015 to 07/2016, then Alkeran d/c from market. 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 Plan 1. continue radiation 2. patient used about 24mg PO hydromorphone over the last 24 hours, and this has been pretty consistent over the last three days. will increase Fentanyl patch to 75mcg with patch change today. had discussion with patient and son about long-acting pain medication and short acting pain medications. discussed that ideally his short acting pain medications will only comprise 10-20% of total 24-hour scheduled opioid dose. Since he is requiring the PO dilaudid consistently every four hours, it is appropriate to increase his long acting pain medication accordingly. 3. start scheduled colace. Patient was on scheduled debbie-colace previously and reported diarrhea, so will switch to scheduled colace only. had discussion with patient and son about importance of maintaining bowel regimen while on opiates Attending Statement c/o constipation. still has neck pain but slowlly improving. continue XRT The exam, history, and the medical decision-making described in the above note were completed with the assistance of the mid-level provider. I reviewed and agree with the findings presented. I attest that I had a [id number] encounter with the patient on the same day, and personally performed and documented my assessment and findings in the medical record. Ana Cristina Starkey Oct 20, 2016 14:02 Alia Lang MD Oct 20, 2016 21:59
--- NOTE | 2016-10-20 15:02 | HHI.PR ---
Subjective Remarks The patient was resting comfortably in bed. Family was at the bedside. He said that he had some bowel movements earlier. He has been ambulating. No acute concerns at this time. Objective Vitals Vital Signs Date Time Temp Pulse Resp B/P Pulse Ox O2 Delivery O2 Flow Rate FiO2 10/20/16 12:30 16 10/20/16 11:30 96.4 63 16 132/73 98 10/20/16 08:00 96.2 59 16 141/73 97 10/20/16 04:00 96.9 76 18 125/59 98 10/20/16 00:00 96.6 73 17 125/69 98 10/19/16 20:00 97.6 69 17 122/63 99 10/19/16 15:48 97.1 64 20 127/64 96 I/O 10/19/16 10/19/16 10/19/16 10/20/16 10/20/16 10/20/16 07:00 15:00 23:00 07:00 15:00 23:00 Intake Total 720 ml 120 ml 240 ml Output Total 400 ml 400 ml Balance 720 ml -280 ml -400 ml 240 ml Intake Oral 720 ml 120 ml 240 ml IV Total 0 ml Output Urine Total 400 ml 400 ml # Voids 3 1 # Bowel Movements 4 1 Result Diagram: 10/19/16 0606 10/18/16 0636 Imaging Last Impressions Chest X-Ray 10/12/16 1600 Signed Impressions: Service Date/Time: Wednesday, October 12, 2016 14:32 - CONCLUSION: No pneumothorax is present following recent right lung/pleural based mass biopsy. Perry Erazo MD Lung Biopsy CT 10/12/16 1157 Signed Impressions: Service Date/Time: Wednesday, October 12, 2016 13:01 - CONCLUSION: Uncomplicated CT guided biopsy of the mass at the apex of the right hemithorax which may be pleural or parenchymal. Perry Erazo MD Objective Remarks GENERAL: This is a well-nourished, well-developed patient, in no apparent distress. CARDIOVASCULAR: Normal rate and regular rhythm without murmurs, gallops, or rubs. RESPIRATORY: Good respiratory efforts. Breath sounds equal and clear to auscultation bilaterally. GASTROINTESTINAL: Abdomen soft, non-tender, non-distended. Normal active bowel sounds MUSCULOSKELETAL: Extremities without cyanosis, or edema. Patient has bilateral foot drop. Patient has 4 out of 5 bilateral lower extremity strength and 5 out of 5 upper extremity strength NEURO: Alert & Oriented x4 to person, place, time, situation. Moves all ext x4 PSYCH: Appropriate mood and affect. Procedures Currently undergoing radiation therapy Medications and IVs Current Medications Medications (Trade) Dose Ordered Sig/Garry Route Start Time Stop Time Status Last Admin (NS Flush) 2 ml UNSCH PRN FLUSH 10/11/16 16:30 10/18/16 23:23 (NS Flush) 2 ml BID FLUSH 10/11/16 21:00 10/20/16 08:51 (Tylenol) 650 mg Q4H PRN PO 10/11/16 16:30 (Zofran Inj) 4 mg Q6H PRN IVP 10/11/16 16:30 10/20/16 08:49 (Dulcolax Supp) 10 mg DAILY PRN [place] 10/11/16 16:30 10/18/16 21:25 (Milk Of Magncristopher Liq) 30 ml Q12H PRN PO 10/11/16 16:30 10/17/16 19:13 (Restoril) 15 mg HS PRN PO 10/11/16 16:30 10/13/16 23:19 (Narcan Inj) 0.4 mg UNSCH PRN IV 10/11/16 16:30 (Lioresal) 10 mg TID PO 10/11/16 18:00 10/20/16 12:23 (Flomax) 0.4 mg HS PO 10/11/16 21:00 10/19/16 22:14 (Decadron Inj) 4 mg Q6HR IV PUSH 10/11/16 18:00 10/20/16 12:23 (Protonix Inj) 40 mg Q24H IV PUSH 10/11/16 18:00 10/19/16 17:10 (Neurontin) 400 mg TID PO 10/11/16 18:00 10/20/16 12:23 (Dilaudid) 2 mg Q4H PRN PO 10/15/16 09:00 (Dilaudid) 4 mg Q4H PRN PO 10/15/16 09:00 10/20/16 08:46 (Prinivil) 10 mg DAILY PO 10/16/16 09:00 10/20/16 08:45 (Dilaudid Pf Inj) 2 mg DAILY PRN IV PUSH 10/16/16 14:45 10/20/16 12:24 (Milk Of Magnesia Liq) 30 ml DAILY PRN PO 10/18/16 12:00 (Fleets Enema (Adult)) 133 ml UNSCH PRN ND 10/18/16 12:00 10/19/16 06:14 (D50w (Vial) Inj) 25 ml UNSCH PRN IV PUSH 10/19/16 08:15 (Glucagon Inj) 1 mg UNSCH PRN OTHER 10/19/16 08:15 (Duragesic 75 Mcg Patch.72 Hr) 1 patch Q3D TD 10/20/16 14:00 Miscellaneous Information 1 Q3D T-DERMAL 10/23/16 09:00 (Colace) 100 mg TID PO 10/20/16 18:00 A/P Assessment and Plan Pancoast tumor CT of the chest outpatient showed a right upper lobe lung mass extending into the vertebral body with some lytic destruction of the ribs. Outpatient MRI of the spine with reports of a 8 x 7 cm RUL lung mass that extends into the T2, T3 and T4 vertebral body and into the thoracic spinal canal through the neural foramina displacing a thoracic cord consistent with Pancoast tumor. - Appreciate oncology and neurosurgery following. Status post CT-guided biopsy which showed melanoma. Patient currently getting radiation. Continue as scheduled. - Pain control has been an issue but overall improving. Continue gabapentin, baclofen, Lortab, fentanyl, Dilaudid as needed. - Decadron IV per neurosurgery. Multiple myeloma Followed by oncology. He was restarted on Alkeran and prednisone in August. - Further therapy per oncology. Elevated blood pressure No known history of hypertension. High-dose steroid and pain probably contributing. Patient probably has underlying hypertension. Well controlled 10/20. - continue lisinopril. - Vasotec as needed. Constipation The pt received an enema and suppository. - continue bowel regimen. - Encourage by mouth hydration. Elevated blood glucose Patient denies history of diabetes, likely secondary to steroids. Relatively well controlled 10/20. - Start low-dose sliding scale insulin coverage with Accu-Cheks before meals at bedtime. - Monitor for signs of hypoglycemia. Lower extremity weakness - Continue physical therapy. Add OT. 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 - Pain medication as noted above. DVT prophylaxis with SCDs. Discharge Planning Awaiting clinical improvement. Jose Jacobs DO Oct 20, 2016 15:02
[2016-10-20] MEDS: PANTOPRAZOLE SODIUM 40 MG VIAL IV PUSH SCH (17:55)
[2016-10-20] MEDS: DOCUSATE SODIUM 100 MG CAP PO SCH (17:56)
[2016-10-20 20:00] VITALS: BP 131/83; PULSE 66; RESP 18; TEMP 97.2; O2SAT 95
[2016-10-20] MEDS: TAMSULOSIN HCL 0.4 MG CAP PO SCH (20:02)
[2016-10-21] VITALS: BP 108/64; PULSE 64; RESP 18; TEMP 96.3; O2SAT 98
[2016-10-21] MEDS: DEXAMETHASONE SOD PHOS 4 MG/ML VIAL IV PUSH SCH ×3 (00:26→12:41)
[2016-10-21] MEDS: HYDROmorphone HCL 4 MG TAB PO PRN ×4 (00:27→23:18)
[2016-10-21 03:52] LABS: KAPPA/LAMBDA FREE 0.01 (0.26-1.65)
[2016-10-21 04:00] VITALS: BP 127/87; PULSE 64; RESP 17; TEMP 96.1; O2SAT 98
[2016-10-21] MEDS: INSULIN ASPART SUPPLEMENTAL SCALE SQ SCH ×4 (05:40→20:41)
[2016-10-21 08:00] VITALS: BP 143/74; PULSE 77; RESP 16; TEMP 96.8; O2SAT 99
[2016-10-21] MEDS: GABAPENTIN 400 MG CAP PO SCH ×3 (08:10→16:56)
[2016-10-21] MEDS: DOCUSATE SODIUM 100 MG CAP PO SCH ×3 (08:10→16:56)
[2016-10-21] MEDS: SODIUM CHLORIDE 0.9% FLUSH 5 ML FLUSH FLUSH SCH ×2 (08:10→20:43)
[2016-10-21] MEDS: BACLOFEN 10 MG TAB PO SCH ×3 (08:10→16:56)
[2016-10-21] MEDS: LISINOPRIL 10 MG TAB PO SCH (08:10)
--- NOTE | 2016-10-21 11:04 | HHI.PR ---
Subjective Remarks The pt was resting comfortably in bed. He said his voice was hoarse because he had radiation earlier. He said he wants to go home versus rehab. No acute complaints. Discussed with nursing. Objective Vitals Vital Signs Date Time Temp Pulse Resp B/P Pulse Ox O2 Delivery O2 Flow Rate FiO2 10/21/16 08:00 96.8 77 16 143/74 99 10/21/16 04:00 96.1 64 17 127/87 98 10/21/16 00:00 96.3 64 18 108/64 98 10/20/16 20:00 97.2 66 18 131/83 95 10/20/16 12:30 16 10/20/16 11:30 96.4 63 16 132/73 98 I/O 10/20/16 10/20/16 10/20/16 10/21/16 10/21/16 10/21/16 07:00 15:00 23:00 07:00 15:00 23:00 Intake Total 240 ml 240 ml Output Total 400 ml 15 ml 400 ml Balance -400 ml 240 ml 225 ml -400 ml Intake Oral 240 ml 240 ml IV Total 0 ml Output Urine Total 400 ml 400 ml Stool Total 15 ml # Bowel Movements 1 Result Diagram: 10/19/16 0606 10/18/16 0636 Imaging Last Impressions Chest X-Ray 10/12/16 1600 Signed Impressions: Service Date/Time: Wednesday, October 12, 2016 14:32 - CONCLUSION: No pneumothorax is present following recent right lung/pleural based mass biopsy. Perry Erazo MD Lung Biopsy CT 10/12/16 1157 Signed Impressions: Service Date/Time: Wednesday, October 12, 2016 13:01 - CONCLUSION: Uncomplicated CT guided biopsy of the mass at the apex of the right hemithorax which may be pleural or parenchymal. Perry Erazo MD Objective Remarks GENERAL: This is a well-nourished, well-developed patient, in no apparent distress. CARDIOVASCULAR: Normal rate and regular rhythm without murmurs, gallops, or rubs. RESPIRATORY: Good respiratory efforts. Breath sounds equal and clear to auscultation bilaterally. GASTROINTESTINAL: Abdomen soft, non-tender, slightly distended. Normal active bowel sounds MUSCULOSKELETAL: Extremities without cyanosis, or edema. Patient has bilateral foot drop. Patient has 4 out of 5 bilateral lower extremity strength and 5 out of 5 upper extremity strength. NEURO: Alert & Oriented x4 to person, place, time, situation. Moves all ext x4 PSYCH: Appropriate mood and affect. Procedures Currently undergoing radiation therapy Medications and IVs Current Medications Medications (Trade) Dose Ordered Sig/Garry Route Start Time Stop Time Status Last Admin (NS Flush) 2 ml UNSCH PRN FLUSH 10/11/16 16:30 10/18/16 23:23 (NS Flush) 2 ml BID FLUSH 10/11/16 21:00 10/21/16 08:10 (Tylenol) 650 mg Q4H PRN PO 10/11/16 16:30 (Zofran Inj) 4 mg Q6H PRN IVP 10/11/16 16:30 10/20/16 08:49 (Dulcolax Supp) 10 mg DAILY PRN [place] 10/11/16 16:30 10/18/16 21:25 (Milk Of Magnesia Liq) 30 ml Q12H PRN PO 10/11/16 16:30 10/17/16 19:13 (Restoril) 15 mg HS PRN PO 10/11/16 16:30 10/13/16 23:19 (Narcan Inj) 0.4 mg UNSCH PRN IV 10/11/16 16:30 (Lioresal) 10 mg TID PO 10/11/16 18:00 10/21/16 08:10 (Flomax) 0.4 mg HS PO 10/11/16 21:00 10/20/16 20:02 (Decadron Inj) 4 mg Q6HR IV PUSH 10/11/16 18:00 10/21/16 05:33 (Protonix Inj) 40 mg Q24H IV PUSH 10/11/16 18:00 10/20/16 17:55 (Neurontin) 400 mg TID PO 10/11/16 18:00 10/21/16 08:10 (Dilaudid) 2 mg Q4H PRN PO 10/15/16 09:00 (Dilaudid) 4 mg Q4H PRN PO 10/15/16 09:00 10/21/16 07:22 (Prinivil) 10 mg DAILY PO 10/16/16 09:00 10/21/16 08:10 (Dilaudid Pf Inj) 2 mg DAILY PRN IV PUSH 10/16/16 14:45 10/20/16 12:24 (Milk Of Magnesia Liq) 30 ml DAILY PRN PO 10/18/16 12:00 (Fleets Enema (Adult)) 133 ml UNSCH PRN [place] 10/18/16 12:00 10/19/16 06:14 (D50w (Vial) Inj) 25 ml UNSCH PRN IV PUSH 10/19/16 08:15 (Glucagon Inj) 1 mg UNSCH PRN OTHER 10/19/16 08:15 (Duragesic 75 Mcg Patch.72 Hr) 1 patch Q3D TD 10/20/16 14:00 10/20/16 15:27 Miscellaneous Information 1 Q3D T-DERMAL 10/23/16 09:00 (Colace) 100 mg TID PO 10/20/16 18:00 10/21/16 08:10 A/P Assessment and Plan Pancoast tumor CT of the chest outpatient showed a right upper lobe lung mass extending into the vertebral body with some lytic destruction of the ribs. Outpatient MRI of the spine with reports of a 8 x 7 cm RUL lung mass that extends into the T2, T3 and T4 vertebral body and into the thoracic spinal canal through the neural foramina displacing a thoracic cord consistent with Pancoast tumor. - Appreciate oncology and neurosurgery following. Status post CT-guided biopsy which showed melanoma. Patient currently getting radiation. Continue as scheduled. - Pain control per oncology with a bowel regimen. - Decadron IV per neurosurgery. Multiple myeloma Followed by oncology. He was restarted on Alkeran and prednisone in August. - Further therapy per oncology. Elevated blood pressure No known history of hypertension. High-dose steroid and pain probably contributing. Patient probably has underlying hypertension. Well controlled 3/ 2. - continue lisinopril. - Vasotec as needed. Constipation S/t pain meds. - continue bowel regimen. Elevated blood glucose Patient denies history of diabetes, likely secondary to steroids. Relatively well controlled 3/2. - Start low-dose sliding scale insulin coverage with Accu-Cheks before meals at bedtime. - Monitor for signs of hypoglycemia. Lower extremity weakness Being evaluated for rehab. - Continue physical therapy. Add OT. 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 - Pain medication as noted above. DVT prophylaxis with SCDs. Discharge Planning Awaiting clinical improvement. Jose Jacobs DO Oct 21, 2016 11:03
[2016-10-21 12:00] VITALS: BP 125/69; PULSE 75; RESP 16; TEMP 97; O2SAT 99
--- NOTE | 2016-10-21 13:48 | PD.ONC.PN ---
Subjective Subjective Remarks Afebrile overnight. Patient resting comfortably without complaint. He had a BM yesterday. He states his pain is well controlled and he slept through the night without requiring pain medication. Objective Data Date Time Temp Pulse Resp B/P Pulse Ox O2 Delivery O2 Flow Rate FiO2 10/21/16 12:00 97.0 75 16 125/69 99 125/69 10/21/16 08:00 96.8 77 16 143/74 99 10/21/16 04:00 96.1 64 17 127/87 98 10/21/16 00:00 96.3 64 18 108/64 98 10/20/16 20:00 97.2 66 18 131/83 95 10/21/16 10/21/16 10/21/16 07:00 15:00 23:00 Output Total 400 ml Balance -400 ml Result Diagram: 10/19/16 0606 10/18/16 0636 Administered Medications Medications (Trade) Dose Ordered Sig/Garry Route PRN Reason Start Time Stop Time Status Last Admin Dose Admin IV Flush (NS Flush) 2 ml UNSCH PRN FLUSH FLUSH AFTER USING IV ACCESS 10/11/16 16:30 10/18/16 23:23 IV Flush (NS Flush) 2 ml BID FLUSH 10/11/16 21:00 10/21/16 08:10 Ondansetron HCl (Zofran Inj) 4 mg Q6H PRN IVP NAUSEA OR VOMITING 10/11/16 16:30 10/20/16 08:49 Bisacodyl (Dulcolax Supp) 10 mg DAILY PRN PA CONSTIPATION 10/11/16 16:30 10/18/16 21:25 Magnesium Hydroxide (Milk Of Magnesia Liq) 30 ml Q12H PRN PO CONSTIPATION 10/11/16 16:30 10/17/16 19:13 Temazepam (Restoril) 15 mg HS PRN PO INSOMNIA 10/11/16 16:30 10/13/16 23:19 Baclofen (Lioresal) 10 mg TID PO 10/11/16 18:00 10/21/16 12:41 Tamsulosin HCl (Flomax) 0.4 mg HS PO 10/11/16 21:00 10/20/16 20:02 Dexamethasone Sodium Phosphate (Decadron Inj) 4 mg Q6HR IV PUSH 10/11/16 18:00 10/21/16 12:41 Pantoprazole Sodium (Protonix Inj) 40 mg Q24H IV PUSH 10/11/16 18:00 10/20/16 17:55 Gabapentin (Neurontin) 400 mg TID PO 10/11/16 18:00 10/21/16 12:41 Hydromorphone HCl (Dilaudid) 4 mg Q4H PRN PO PAIN SCALE 5 TO 10 10/15/16 09:00 10/21/16 11:34 Lisinopril (Prinivil) 10 mg DAILY PO 10/16/16 09:00 10/21/16 08:10 Hydromorphone HCl (Dilaudid Pf Inj) 2 mg DAILY PRN IV PUSH GIVE PRIOR TO RADIATION 10/16/16 14:45 10/20/16 12:24 Sodium Biphosphate/ Sodium Phosphate (Fleets Enema (Adult)) 133 ml UNSCH PRN [place] CONSTIPATION 10/18/16 12:00 10/19/16 06:14 Fentanyl (Duragesic 75 Mcg Patch.72 Hr) 1 patch Q3D TD 10/20/16 14:00 10/20/16 15:27 Docusate Sodium (Colace) 100 mg TID PO 10/20/16 18:00 10/21/16 12:41 Objective Remarks GENERAL: Elderly male, sitting up in bed in nad. SKIN: Warm and dry. HEAD: Normocephalic. EYES: No injection or drainage. NECK: Supple, trachea midline. CARDIOVASCULAR: +S1/S2. RESPIRATORY: Breath sounds equal bilaterally. No accessory muscle use. GASTROINTESTINAL: Abdomen soft, non-tender, nondistended. EXTREMITIES: No cyanosis. NEUROLOGICAL: awake and alert, normal speech. moving all extremities. Assessment/Plan Problem List: (1) Neuropathic pain Status: Acute Plan: 10/21: continue current pain regimen. will arrange follow up in clinic once patient discharged --currently on Fentanyl + Dilaudid PO + dilaudid IV for breakthrough pain + Gabapentin + Baclofen (2) Multiple myeloma Status: Acute Plan: 10/21/16: continue XRT. Change Decadron to 4mg PO q 8 hours (instead of IV q 6 hours) in preparation for discharge. follow up in clinic once discharged, will arrange for outpatient PET scan and MRI brain at that time. --CT chest showed a mass in the right upper lobe of the lung that extends into the right T4 vertebral body and has some lytic destruction of the ribs. --MRI spine on October 04 showed 8.5 x 7.5 cm RUL lung mass that extends into the T2, T3 and T4 vertebral body and into the thoracic spinal canal through the neural foramina displacing a thoracic cord consistent with Pancoast tumor. Pathology shows multiple myeloma. --Radiation oncology and Neurosurgery following --on Decadron 4mg IV q6 --will need PET scan outpatient as well as MRI brain for staging. 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 --treated with Alkeran and Prednisone from 07/2015 to 07/2016, then Alkeran d/c from market. --started on Cytoxan and Decadron--did not work --08/2016: resumed Alkeran + prednisone --09/2016: Pancoast tumor pathology shows MM--XRT started on 10/15 Assessment 70y/o male with multiple myeloma, newly found pancoast tumor h/o Multiple myeloma h/o Arthritis BPH COPD Diabetes mellitus Hemorrhoids Hypercholesterolemia Osteopenia Colon cancer and now he has possible lung cancer. Attending Statement Had a good BM yesterday. Pain is under control XRt tomorrow and ok to d/c home. will follow. Problem Qualifiers (1) Multiple myeloma: Qualified Code: C90.00 - Multiple myeloma not having achieved remission Ana Cristina Starkey Oct 21, 2016 13:48 Alia Lang MD Oct 21, 2016 23:34
[2016-10-21] MEDS: DEXAMETHASONE 4 MG TAB PO SCH ×2 (14:00→20:41)
[2016-10-21 16:00] VITALS: BP 123/68; PULSE 100; RESP 16; TEMP 95.7; O2SAT 98
[2016-10-21 20:00] VITALS: BP 123/68; PULSE 71; RESP 16; TEMP 97; O2SAT 99
[2016-10-21] MEDS: TAMSULOSIN HCL 0.4 MG CAP PO SCH (20:41)
[2016-10-22] VITALS: BP 141/73; PULSE 77; RESP 16; TEMP 98.3; O2SAT 98
[2016-10-22 04:00] VITALS: BP 130/71; PULSE 65; RESP 16; TEMP 97.4; O2SAT 99
[2016-10-22] MEDS: DEXAMETHASONE 4 MG TAB PO SCH ×2 (05:52→12:40)
[2016-10-22] MEDS: INSULIN ASPART SUPPLEMENTAL SCALE SQ SCH ×2 (05:54→12:39)
[2016-10-22 08:00] VITALS: BP 134/77; PULSE 66; RESP 16; TEMP 96.5; O2SAT 99
[2016-10-22] MEDS: GABAPENTIN 400 MG CAP PO SCH ×2 (08:36→12:39)
[2016-10-22] MEDS: BACLOFEN 10 MG TAB PO SCH ×2 (08:36→12:40)
[2016-10-22] MEDS: LISINOPRIL 10 MG TAB PO SCH (08:36)
[2016-10-22] MEDS: HYDROmorphone HCL 4 MG TAB PO PRN ×2 (08:36→15:20)
[2016-10-22] MEDS: DOCUSATE SODIUM 100 MG CAP PO SCH ×2 (08:36→12:39)
[2016-10-22] MEDS: SODIUM CHLORIDE 0.9% FLUSH 5 ML FLUSH FLUSH SCH (08:37)
[2016-10-22] MEDS ORDERED: PANTOPRAZOLE SOD 40 MG DELAYED RELEASE TAB PO SCH (09:00)
--- NOTE | 2016-10-22 11:48 | PD.ONC.PN ---
Subjective Subjective Remarks Afebrile overnight. patient very eager to go home. Had BM yesterday. Pain controlled with current regimen. Objective Data Date Time Temp Pulse Resp B/P Pulse Ox O2 Delivery O2 Flow Rate FiO2 10/22/16 08:00 96.5 66 16 134/77 99 10/22/16 04:00 97.4 65 16 130/71 99 10/22/16 00:00 98.3 77 16 141/73 98 10/21/16 20:00 97.0 71 16 123/68 99 10/21/16 16:00 95.7 100 16 123/68 98 10/21/16 12:00 97.0 75 16 125/69 99 125/69 10/22/16 10/22/16 10/22/16 07:00 15:00 23:00 Intake Total 480 ml Output Total 825 ml 350 ml Balance -345 ml -350 ml Result Diagram: 10/19/16 0606 10/18/16 0636 Administered Medications Medications (Trade) Dose Ordered Sig/Garry Route PRN Reason Start Time Stop Time Status Last Admin Dose Admin IV Flush (NS Flush) 2 ml UNSCH PRN FLUSH FLUSH AFTER USING IV ACCESS 10/11/16 16:30 10/18/16 23:23 IV Flush (NS Flush) 2 ml BID FLUSH 10/11/16 21:00 10/22/16 08:37 Ondansetron HCl (Zofran Inj) 4 mg Q6H PRN IVP NAUSEA OR VOMITING 10/11/16 16:30 10/20/16 08:49 Bisacodyl (Dulcolax Supp) 10 mg DAILY PRN [place] CONSTIPATION 10/11/16 16:30 10/18/16 21:25 Magnesium Hydroxide (Milk Of Magnesia Liq) 30 ml Q12H PRN PO CONSTIPATION 10/11/16 16:30 10/17/16 19:13 Temazepam (Restoril) 15 mg HS PRN PO INSOMNIA 10/11/16 16:30 10/13/16 23:19 Baclofen (Lioresal) 10 mg TID PO 10/11/16 18:00 10/22/16 08:36 Tamsulosin HCl (Flomax) 0.4 mg HS PO 10/11/16 21:00 10/21/16 20:41 Gabapentin (Neurontin) 400 mg TID PO 10/11/16 18:00 10/22/16 08:36 Hydromorphone HCl (Dilaudid) 4 mg Q4H PRN PO PAIN SCALE 5 TO 10 10/15/16 09:00 10/22/16 08:36 Lisinopril (Prinivil) 10 mg DAILY PO 10/16/16 09:00 10/22/16 08:36 Hydromorphone HCl (Dilaudid Pf Inj) 2 mg DAILY PRN IV PUSH GIVE PRIOR TO RADIATION 10/16/16 14:45 10/20/16 12:24 Sodium Biphosphate/ Sodium Phosphate (Fleets Enema (Adult)) 133 ml UNSCH PRN [place] CONSTIPATION 10/18/16 12:00 10/19/16 06:14 Fentanyl (Duragesic 75 Mcg Patch.72 Hr) 1 patch Q3D TD 10/20/16 14:00 10/20/16 15:27 Docusate Sodium (Colace) 100 mg TID PO 10/20/16 18:00 10/22/16 08:36 Dexamethasone (Decadron) 4 mg Q8HR PO 10/21/16 14:00 10/22/16 05:52 Pantoprazole Sodium (Protonix) 40 mg DAILY PO 10/22/16 09:00 10/22/16 08:36 Objective Remarks GENERAL: Elderly male, sitting up in bed in [facility]. SKIN: Warm and dry. HEAD: Normocephalic. EYES: No injection or drainage. NECK: Supple, trachea midline. CARDIOVASCULAR: +S1/S2. RESPIRATORY: Breath sounds equal bilaterally. No accessory muscle use. GASTROINTESTINAL: Abdomen soft, non-tender, nondistended. EXTREMITIES: No cyanosis. NEUROLOGICAL: awake and alert, normal speech. moving all extremities. Assessment/Plan Problem List: (1) Neuropathic pain Status: Acute Plan: 10/22: clear for discharge. pain controlled on current regimen. --currently on Fentanyl + Dilaudid PO + dilaudid IV for breakthrough pain + Gabapentin + Baclofen (2) Multiple myeloma Status: Acute Plan: 10/22/16: continue XRT. follow up in clinic on Tuesday. will need to get outpatient PET scan once discharged. --CT chest showed a mass in the right upper lobe of the lung that extends into the right T4 vertebral body and has some lytic destruction of the ribs. --MRI spine on October 04 showed 8.5 x 7.5 cm RUL lung mass that extends into the T2, T3 and T4 vertebral body and into the thoracic spinal canal through the neural foramina displacing a thoracic cord consistent with Pancoast tumor. Pathology shows multiple myeloma. --Radiation oncology and Neurosurgery following --on Decadron 4mg IV q6 --will need PET scan outpatient as well as MRI brain for staging. 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 --treated with Alkeran and Prednisone from 07/2015 to 07/2016, then Alkeran d/c from [facility]. --started on Cytoxan and Decadron--did not work --08/2016: resumed Alkeran + prednisone --09/2016: Pancoast tumor pathology shows MM--XRT started on 10/15 Assessment 70y/o male with multiple myeloma, newly found pancoast tumor h/o Multiple myeloma h/o Arthritis BPH COPD Diabetes mellitus Hemorrhoids Hypercholesterolemia Osteopenia Colon cancer and now he has possible lung cancer. Attending Statement feels better wants to go home ok to d/c fu office next week The exam, history, and the medical decision-making described in the above note were completed with the assistance of the mid-level provider. I reviewed and agree with the findings presented. I attest that I had a [id number] encounter with the patient on the same day, and personally performed and documented my assessment and findings in the medical record. Problem Qualifiers (1) Multiple myeloma: Qualified Code: C90.00 - Multiple myeloma not having achieved remission Ana Cristina Starkey Oct 22, 2016 11:48 Alia Lang MD Oct 22, 2016 17:00
[2016-10-22 12:00] VITALS: BP 128/74; PULSE 73; RESP 16; TEMP 96.5; O2SAT 99
[2016-10-22] MEDS ORDERED: FENT75T TD (12:28)
[2016-10-22] MEDS ORDERED: DILA4TAB2 PO (12:28)
[2016-10-22] MEDS ORDERED: DEXA4TAB PO (13:11)
[2016-10-22] MEDS ORDERED: PANT40TA3 PO (13:11)
[2016-10-22] MEDS ORDERED: NEUR400C PO (14:26)
[2016-10-22] MEDS ORDERED: SENN8.6T81 PO (14:26)
[2016-10-22] MEDS ORDERED: LISI10TA3 PO (14:26)
[2016-10-22] MEDS ORDERED: DOCU1CAP39 PO (14:26)
--- NOTE | 2016-10-22 14:27 | HHI.DCPOC ---
Discharge Care Plan Diagnosis: (1) Multiple myeloma (2) Thoracic spine tumor (3) Neuropathic pain (4) Lung mass (5) Constipation (6) Amyloidosis Goals to Promote Your Health * To prevent worsening of your condition and complications * To maintain your health at the optimal level Directions to Meet Your Goals Take your medications as prescribed Follow your dietary instruction Follow activity as directed Keep your appointments as scheduled Take your immunizations and boosters as scheduled If your symptoms worsen call your PCP, if no PCP go to Urgent Care Center or Emergency Room Smoking is Dangerous to Your Health. Avoid second hand smoke Call the 24-hour hour crisis hotline for domestic abuse at Jose Jacobs DO Oct 22, 2016 14:27
--- NOTE | 2016-10-22 14:28 | HHI.FF ---
Face to Face Verification Diagnosis: (1) Lung mass (2) Neuropathic pain (3) Thoracic spine tumor (4) Multiple myeloma (5) Constipation (6) Amyloidosis Physical Therapy Order: Evaluate and Treat, Improve ambulation, Strength and gait training Occupational Therapy Order: Evaluate and Treat, Improve ADL, Gross motor coordination, Fine motor coordination Home Health Nursing Order: Medical education Signs/symptoms of disease process Medication education-adverse effect Nursing assessment with vital signs I have seen patient Win Skinner on 10/22/16. My clinical findings support the need for the requested home health care services because: Ltd mobility - disease progression Deconditioned w/ increased weakness Limited ability to care for self High risk of falls I certify that my clinical findings support that this patient is homebound because: Unsteady gait/balance Unsafe to leave home unassisted Jose Jacobs DO Oct 22, 2016 14:28
--- NOTE | 2016-10-22 14:36 | HHI.DS ---
Discharge Summary Admission Date Oct 11, 2016 at 16:26 Discharge Date: Oct 22, 2016 Admitting Diagnosis right upper lobe lung mass extending into T spine/canal (1) Lung mass ICD Code: R91.8 (2) Neuropathic pain ICD Code: M79.2 (3) Thoracic spine tumor ICD Code: D49.2 Diagnosis: Principal (4) Multiple myeloma ICD Code: C90.00 Diagnosis: Principal (5) Constipation ICD Code: K59.00 Diagnosis: Principal (6) Amyloidosis ICD Code: E85.9 Procedures Currently undergoing radiation therapy Brief History - From Admission 70-year-old male with a medical history significant for multiple myeloma undergoing treatment, amyloidosis, osteoarthritis who presented to the emergency room with intractable pain of the right shoulder extending all the way to his lower back. He described the pain as severe and debilitating. The patient had an MRI which showed an 8 cm epidural extension. There is also a newly discovered right upper lobe lung mass extending into the thoracic vertebrae with lytic lesions. Given the patient's intractable pain and new findings of the lung mass. He is being admitted for pain control and further workup with oncology and neurosurgery consultation. CBC/BMP: 10/19/16 0606 10/18/16 0636 Imaging Last Impressions Chest X-Ray 10/12/16 1600 Signed Impressions: Service Date/Time: Wednesday, October 12, 2016 14:32 - CONCLUSION: No pneumothorax is present following recent right lung/pleural based mass biopsy. Perry Erazo MD Lung Biopsy CT 10/12/16 1157 Signed Impressions: Service Date/Time: Wednesday, October 12, 2016 13:01 - CONCLUSION: Uncomplicated CT guided biopsy of the mass at the apex of the right hemithorax which may be pleural or parenchymal. Perry Erazo MD PE at Discharge GENERAL: This is a well-nourished, well-developed patient, in no apparent distress. CARDIOVASCULAR: Normal rate and regular rhythm without murmurs, gallops, or rubs. RESPIRATORY: Good respiratory efforts. Breath sounds equal and clear to auscultation bilaterally. GASTROINTESTINAL: Abdomen soft, non-tender, slightly distended. Normal active bowel sounds MUSCULOSKELETAL: Extremities without cyanosis, or edema. Patient has bilateral foot drop. Patient has 4 out of 5 bilateral lower extremity strength and 5 out of 5 upper extremity strength. NEURO: Alert & Oriented x4 to person, place, time, situation. Moves all ext x4 PSYCH: Appropriate mood and affect. Pt update on day of discharge The patient was sitting up in a chair. His family was at the bedside. The patient wanted to go home and he did not want to go to rehabilitation. His pain was controlled. Discussed with nursing and case management. Hospital Course CT of the chest outpatient showed a right upper lobe lung mass extending into the vertebral body with some lytic destruction of the ribs. Outpatient MRI of the spine with reports of a 8 x 7 cm RUL lung mass that extends into the T2, T3 and T4 vertebral body and into the thoracic spinal canal through the neural foramina displacing a thoracic cord consistent with Pancoast tumor. Oncology and neurosurgery were consulted. Status post CT-guided biopsy which showed melanoma. Patient currently getting radiation treatments. He received pain control per oncology with a bowel regimen. He will continue Decadron as well as PO Dilaudid and a fentanyl patch. He will follow up with oncology as an outpt. He will need a PET scan outpatient as well as MRI of the brain for staging. He worked with physical therapy and occupational therapy who recommended rehab. The pt was adamant on going home and he maintained he had excellent family support. He will be discharged with home health services. Hypertension was well controlled on lisinopril 10 mg daily. He received Vasotec as needed. He will continue a bowel regimen. Pt Condition on Discharge: Stable Discharge Disposition: Disch w/ Home Health Serv Discharge Time: > 30 minutes Discharge Instructions DIET: Follow Instructions for: As Tolerated, No Restrictions Activities you can perform: Weight Bearing as Luciana Follow up Referrals: Neurosurgery - 4 Weeks @ [facility] Oncology - 1 Week with Alia Lang MD New Medications: Sennosides (Sennosides) 8.6 Mg Tab 17.2 MG PO HS Constipation #30 Ref 0 TAB Dexamethasone (Dexamethasone) 4 Mg Tab 4 MG PO Q8HR myeloma Days 14 TAB Docusate Sodium (Dok) 100 Mg Cap 100 MG PO BID Constipation #60 CAP Fentanyl Patch 72 HR (Duragesic Patch 72 HR) 75 Mcg/Hr Patch 1 PATCH TD Q3D recordkeeping--paper rx writte Days 30 BOX Gabapentin (Neurontin) 400 Mg Cap 400 MG PO TID Neuropathy #90 CAP Hydromorphone (Dilaudid) 4 Mg Tab 4 MG PO Q4H PRN PAIN SCALE 5 TO 10 #180 TAB Lisinopril (Lisinopril) 10 Mg Tab 10 MG PO DAILY Blood Pressure Management #30 TAB Pantoprazole (Pantoprazole) 40 Mg Tab 40 MG PO DAILY prophylaxis Days 14 TAB Continued Medications: Baclofen (Baclofen) 10 Mg Tab 10 MG PO TID Muscle Spasm Ref 0 TAB Tamsulosin (Flomax) 0.4 Mg Cap 0.4 MG PO HS Manage Prostate Problems #30 Ref 0 CAP ([Antidepressant]) 1 TAB PO DAILY DEPRESSION Discontinued Medications: Hydrocodone-Acetaminophen (Hydrocodone-Acetaminophen) 5-300 Mg Tab 1 TAB PO Q4H PRN PAIN Ref 0 TAB Prednisone (Prednisone) 10 Mg Tab 10 MG PO DAILY Ref 0 TAB Jose Jacobs DO Oct 22, 2016 14:36
[2016-10-23] MEDS ORDERED: REMOVE OLD PATCH T-DERMAL SCH (09:00)
== END 2016-10-22 16:25 | disposition home health service (06) | DRG 181 ==
LOC: PHED 15:31 → PHEDA 16:26 → HOCA 20:48
PROVIDERS: ADMIT Hospitalist; ATTEND Hospitalist
PROC: 0BBC3ZX Excision of Right Upper Lung Lobe, Percutaneous Approach, Diagnostic (ICD-10-PCS; principal; 2016-10-12)
PROC: DW021ZZ Beam Radiation of Chest using Photons 1 - 10 MeV (ICD-10-PCS; 2016-10-14)
DX: C78.01 Secondary malignant neoplasm of right lung (principal); C90.00 Multiple myeloma not having achieved remission; C79.51 Secondary malignant neoplasm of bone; E85.9 Amyloidosis, unspecified; G62.9 Polyneuropathy, unspecified; J44.9 Chronic obstructive pulmonary disease, unspecified; E78.5 Hyperlipidemia, unspecified; N40.0 Benign prostatic hyperplasia without lower urinary tract symptoms; R26.2 Difficulty in walking, not elsewhere classified; M85.80 Other specified disorders of bone density and structure, unspecified site; M47.9 Spondylosis, unspecified; K59.00 Constipation, unspecified; E78.00 Pure hypercholesterolemia, unspecified; I10 Essential (primary) hypertension; R73.9 Hyperglycemia, unspecified; R11.2 Nausea with vomiting, unspecified; T38.0X5A Adverse effect of glucocorticoids and synthetic analogues, initial encounter; Z99.3 Dependence on wheelchair; Z98.1 Arthrodesis status; Z87.891 Personal history of nicotine dependence; Z85.038 Personal history of other malignant neoplasm of large intestine
CPT/HCPCS: 32405; 71010; 77012; 77263; 77290; 77295; 77300; 77334; 77336; 77387; 77412; 77417; 77427; 80048; 80053; 82784; 82948; 83883; 84165; 85007; 85027; 85610; 85730; 86334; 88305; 88341; 88342; 94060; 96374; 99222; C9113; J1100; J1170; J1815; J2250; J2270; J2405; J3010; J7030; J8540

== ENCOUNTER 2016-12-06 17:59 | Inpatient (IN) | payer OTHER, MEDICARE ==
[~2016-12-06] VITALS: Ht 182.9 cm; Wt 75.0 kg
[~2016-12-06 17:59] MED LIST changes: +ANTIDEPRESSANT PO; +BACL10TA PO; +DEXA4TAB PO; +DILA4TAB2 PO; +DOCU1CAP39 PO; -ED B10TA PO; +FENT75T TD; -GABA600T PO; -HYDR10SO PO; +LISI10TA3 PO; +NEUR400C PO; +PANT40TA3 PO; -PROS5TAB2 PO; +SENN8.6T81 PO; -TAMS0.4C67 PO; +TAMS5CAP PO
[2016-12-06 18:00] VITALS: BP 114/56; PULSE 72; RESP 20; TEMP 98.7; O2SAT 100
--- NOTE | 2016-12-06 18:10 | PD ---
Physical Exam Time Seen by Provider: 18:06 Narrative 70 year old male presents to ED for evaluation of BLE DVT identified on doppler [facility] today. Pt has been having pain 8/10 and swelling BLE x 5 days and went to his PCP today who ordered the imaging study. Pt has history of multiple myeloma, currently on chemo and just finished radiation. Denies fever or chills. Pt has chronic shortness of breath and it is not worse. No other symptoms to report. Data Data Last Documented VS Vital Signs Date Time Temp Pulse Resp B/P Pulse Ox O2 Delivery O2 Flow Rate FiO2 12/06/16 18:00 98.7 72 20 114/56 100 Room Air MDM Medical Record Reviewed: Yes Supervised Visit with CALISTA: No Narrative Course 70 year old male with history of multiple myeloma, followed Dr. Lang, presents to ED for evaluation of BLE DVT diagnosed today at [facility]. Pt appears otherwise without distress. VSS Condition: Stable Juanita Rey Dec 06, 2016 18:10
--- NOTE | 2016-12-06 18:39 | PD ---
HPI Chief Complaint: Abnormal Results Time Seen by Provider: 18:37 Travel History International Travel<30 days: No Contact w/Intl Traveler<30days: No Traveled to known affect area: No History of Present Illness HPI Patient comes into the emergency Department at the instruction of his primary care doctor after having found extensive DVTs bilateral lower extremities. He reports that patient's home physical therapist noticed swelling last week and recommend he get evaluated by his primary care doctor. Patient's primary care doctor today had the Doppler study done which he showed DVT's bilateral lower extremities. Patient was instructed to come to the emergency department for further treatment and evaluation. Denies any nausea, vomiting, or being on any blood thinners. Denies any history of GI bleed or intracranial hemorrhage. PFSH Past Medical History Cancer: Yes (Multiple myeloma) Cardiovascular Problems: No Chemotherapy: Yes Diabetes: No Endocrine: No Genitourinary: No Hepatitis: No Hiatal Hernia: No Immune Disorder: No Musculoskeletal: Yes (CHRONIC LEG/FEET PAIN) Neurologic: Yes (Neuropathy) Psychiatric: No Respiratory: Yes (LUNG CANCER) Thyroid Disease: No Past Surgical History Abdominal Surgery: No AICD: No Body Medical Devices: METAL - LUMBAR Cardiac Surgery: No Ear Surgery: No Endocrine Surgery: No Eye Surgery: Yes (CATARACTS) Genitourinary Surgery: No Gynecologic Surgery: No Joint Replacement: No Oral Surgery: Yes Pacemaker: No Thoracic Surgery: No Other Surgery: Yes Social History Alcohol Use: No Tobacco Use: No Substance Use: No Allergies-Medications (Allergen,Severity, Reaction): Coded Allergies: No Known Allergies (Unverified , 12/06/16) Reported Meds & Prescriptions Reported Meds & Active Scripts Active Neurontin (Gabapentin) 400 Mg Cap 400 Mg PO TID Pantoprazole (Pantoprazole Sodium) 40 Mg Tab 40 Mg PO DAILY 14 Days Dexamethasone 4 Mg Tab 4 Mg PO Q8HR 14 Days Reported Multivitamin Adults (Multiple Vitamins W/ Minerals) 1 Tab 1 Tab PO DAILY Folic + B12 (Cobalamine Combinations) 800-1,000 Mcg Tab 1 Tab PO DAILY Percocet (Oxycodone-Acetaminophen) 10-325 mg Tab 1 Tab PO Q6H PRN Flomax (Tamsulosin HCl) 0.4 Mg Cap 0.4 Mg PO HS Review of Systems Except as stated in HPI: all other systems reviewed are Neg Physical Exam Narrative GENERAL: Well-developed, well nourished, in no acute distress, and non-ill appearing. SKIN: Focused skin assessment warm and dry. HEAD: Atraumatic. Normocephalic. EYES: Pupils equal and round. EOMI. No scleral icterus. No injection or drainage. ENT: No nasal bleeding or discharge. Mucous membranes pink and moist. NECK: Trachea midline. Supple. No nuclear rigidity. CARDIOVASCULAR: Regular rate and rhythm. No murmur appreciated. Dorsal pulses 2+, intact, and equal bilaterally. RESPIRATORY: No accessory muscle use. No respiratory distress. Clear to auscultation. Breath sounds equal bilaterally. MUSCULOSKELETAL: No obvious deformities. No clubbing. No cyanosis. 2+ pitting edema left lower extremity and 1+ pitting edema right lower extremity. Full range of motion. NEUROLOGICAL: Awake and alert. No obvious cranial nerve deficits. Motor grossly within normal limits. Normal speech. PSYCHIATRIC: Appropriate mood and affect; insight and judgment normal. Data Data Last Documented VS Vital Signs Date Time Temp Pulse Resp B/P Pulse Ox O2 Delivery O2 Flow Rate FiO2 12/06/16 18:46 77 18 100 Room Air 12/06/16 18:00 98.7 114/56 Orders Basic Metabolic Panel (Bmp) (12/06/16 18:36) Complete Blood Count With Diff (12/06/16 18:36) Prothrombin Time / Inr (Pt) (12/06/16 18:36) Act Partial Throm Time (Ptt) (12/06/16 18:36) Iv Access Insert/Monitor (12/06/16 18:36) Ecg Monitoring (12/06/16 18:36) Oximetry (12/06/16 18:36) Sodium Chloride 0.9% Flush (Ns Flush) (12/06/16 18:45) Heparin Inj (Heparin Inj) (12/06/16 20:30) Heparin Inj (Heparin Inj) (12/07/16 02:30) Heparin Inj (Heparin Inj) (12/07/16 02:30) Heparin-D5w Inj (Heparin-D5w Inj) (12/06/16 20:30) Act Partial Throm Time (Ptt) (12/06/16 20:27) Prothrombin Time / Inr (Pt) (12/06/16 20:27) Cbc No Diff, Includes Plts (12/06/16 20:27) Cbc No Diff, Includes Plts (12/09/16 06:00) Act Partial Throm Time (Ptt) (12/07/16 03:27) Occult Blood (Hemoccult) Stool (12/06/16 20:27) Heparin Infusion PEGGY.Q1H (12/06/16 20:27) Admit Order (Ed Use Only) (12/06/16 20:45) Labs Laboratory Tests Test 12/06/16 18:55 White Blood Count 13.0 TH/MM3 Red Blood Count 2.93 MIL/MM3 Hemoglobin 9.6 GM/DL Hematocrit 28.2 % Mean Corpuscular Volume 96.4 FL Mean Corpuscular Hemoglobin 32.7 PG Mean Corpuscular Hemoglobin 33.9 % Concent Red Cell Distribution Width 17.1 % Platelet Count 215 TH/MM3 Mean Platelet Volume 7.6 FL Neutrophils (%) (Auto) 92.9 % Lymphocytes (%) (Auto) 1.8 % Monocytes (%) (Auto) 4.9 % Eosinophils (%) (Auto) 0.1 % Basophils (%) (Auto) 0.3 % Neutrophils # (Auto) 12.1 TH/MM3 Lymphocytes # (Auto) 0.2 TH/MM3 Monocytes # (Auto) 0.6 TH/MM3 Eosinophils # (Auto) 0.0 TH/MM3 Basophils # (Auto) 0.0 TH/MM3 CBC Comment AUTO DIFF Differential Total Cells 100 Counted Neutrophils % (Manual) 79 % Band Neutrophils % 11 % Lymphocytes % 3 % Monocytes % 3 % Neutrophils # (Manual) 12.2 TH/MM3 Metamyelocytes 3 % Myelocytes 1 % Differential Comment FINAL DIFF MANUAL Platelet Estimate NORMAL Platelet Morphology Comment NORMAL Red Cell Morphology Comment NORMAL Prothrombin Time 11.2 SEC Prothromb Time International 1.0 RATIO Ratio Activated Partial 22.6 SEC Thromboplast Time Sodium Level 140 MEQ/L Potassium Level 4.7 MEQ/L Chloride Level 106 MEQ/L Carbon Dioxide Level 26.1 MEQ/L Anion Gap 8 MEQ/L Blood Urea Nitrogen 21 MG/DL Creatinine 0.71 MG/DL Estimat Glomerular Filtration 110 ML/MIN Rate Random Glucose 223 MG/DL Calcium Level 8.9 MG/DL MDM Medical Decision Making Medical Screen Exam Complete: Yes Emergency Medical Condition: Yes Differential Diagnosis DVT, electrolyte abnormality, other Narrative Course Patient was seen and examined. Doppler study report was reviewed from [facility]. Initial laboratory studies were obtained and reviewed. Discussed patient with Dr. Butler, who is in agreement with plan of care and disposition. Discussed all findings and plan of care with patient and son who is at the bedside. Patient is agreeable for admission. All questions were answered. Physician Communication Physician Communication [address] Lang, who recommended starting patient on IV heparin drip, admit to medicine, and he can be consulted if needed. [address] Pritchard, who is agreeable to admit the patient. Diagnosis Primary Impression: DVT of axillary vein, acute bilateral Admitting Information Admitting Physician Requests: Admit Condition: Stable Antwon Edmondson Dec 06, 2016 18:39
[2016-12-06] MEDS ORDERED: SODIUM CHLORIDE 0.9% FLUSH 10 ML FLUSH IV FLUSH PRN ×2 (18:45→21:00)
[2016-12-06 18:46] VITALS: RESP 18; O2SAT 100
[2016-12-06 19:09] LABS: AUTOMATED NEUTROPHIL # 12.1 TH/MM3 (1.8-7.7); BASOPHIL % 0.3 % (0.0-2.0); EOSINOPHIL % 0.1 % (0.0-4.0); HEMATOCRIT 28.2 % (39.0-51.0); LYMPH % 1.8 % (9.0-44.0); LYMPHOCYTE # 0.2 TH/MM3 (1.0-4.8); MEAN CELL VOLUME 96.4 FL (80.0-100.0); MEAN CORPUSCULAR HEMOGLOBIN 32.7 PG (27.0-34.0); MEAN CORPUSCULAR HGB CONC 33.9 % (32.0-36.0); MONO % 4.9 % (0.0-8.0); NEUT % 92.9 % (16.0-70.0); PLATELET COUNT 215 TH/MM3 (150-450); RED BLOOD COUNT 2.93 MIL/MM3 (4.50-5.90); RED CELL DISTRIBUTION WIDTH 17.1 % (11.6-17.2)
[2016-12-06 19:16] LABS: HEMO FLAGS AUTO DIFF
[2016-12-06 19:18] LABS: APTT (PATIENT) 22.6 SEC (24.3-30.1); PROTHROMBIN TIME - PATIENT 11.2 SEC (9.8-11.6)
[2016-12-06 19:30] LABS: BICARBONATE 26.1 MEQ/L (21.0-32.0); POTASSIUM 4.7 MEQ/L (3.5-5.1)
[2016-12-06 19:35] LABS: BANDS 11 % (0-6); METAMYELOCYTES 3 % (0-1); MYELOCYTES 1 % (0-0); NEUTROPHIL # MANUAL DIFF 12.2 TH/MM3 (1.8-7.7); POLYS (SEG NEUTROPHILS) 79 % (16-70); WBC DIFF SAMPLE 100
[2016-12-06 19:36] LABS: PLATELET ESTIMATE SMEAR NORMAL (NORMAL); PLATELET MORPHOLOGY NORMAL (NORMAL); SCAN/DIFF FINAL DIFF MANUAL
[2016-12-06] MEDS ORDERED: PERC10TA27 PO (19:36)
[2016-12-06] MEDS ORDERED: FOLITAB2 PO (19:38)
[2016-12-06] MEDS ORDERED: MULT1TAB84 PO (19:38)
[2016-12-06] MEDS ORDERED: HEPARIN SODIUM - IV 10,000 UNITS/10 ML VIAL IV ONE (20:30)
[2016-12-06 20:56] VITALS: BP 97/56; PULSE 75; RESP 18; O2SAT 100
[2016-12-06] MEDS ORDERED: NALOXONE HCL 0.4 MG/ML AMP IV PRN (21:00)
[2016-12-06 21:10] LABS: HEMATOCRIT 28.2 % (39.0-51.0); MEAN CELL VOLUME 98.1 FL (80.0-100.0); MEAN CORPUSCULAR HEMOGLOBIN 31.8 PG (27.0-34.0); MEAN CORPUSCULAR HGB CONC 32.4 % (32.0-36.0); PLATELET COUNT 203 TH/MM3 (150-450); RED BLOOD COUNT 2.88 MIL/MM3 (4.50-5.90); RED CELL DISTRIBUTION WIDTH 16.8 % (11.6-17.2); REVIEW FLAG FINAL; WHITE BLOOD COUNT 12.5 TH/MM3 (4.0-11.0)
[2016-12-06 21:24] LABS: APTT (PATIENT) 23.5 SEC (24.3-30.1); PROTHROMBIN TIME - PATIENT 11.3 SEC (9.8-11.6)
[2016-12-06] MEDS: HEPARIN-D5W INJ 250 ML IV SCH (21:53)
[2016-12-06 21:55] VITALS: BP 109/63; PULSE 56; RESP 20; O2SAT 100
--- NOTE | 2016-12-06 22:15 | HHI.HP ---
HPI Service [facility] Primary Care Physician Mk Dhillon MD Admission Diagnosis extensive bilateral DVTs, multiple myeloma Diagnoses: (1) DVT of lower extremity, bilateral Chief Complaint: Evaluation of DVTs found on outpatient doppler of lower extremities Travel History International Travel<30 Days: No Contact w/Intl Traveler <30 Da: No Traveled to Known Affected Are: No History of Present Illness Mr. Skinner is a 70 year old male with a history of multiple myeloma undergoing treatment with chemotherapy and steroids (under the care of oncologist Dr. Lang), amyloidosis, osteoarthritis, hyperlipidemia, migraines , and BPH who presented to the emergency room on 12/06/2016 for evaluation of bilateral lower extremity DVT seen on outpatient Doppler at the [facility] today. The patient was instructed by his primary care physician to come to the hospital for treatment and evaluation. Last Tuesday, the patient's physical therapist noted swelling in his left leg and recommended that he get it checked out. He saw his primary care physician who ordered the Doppler which was positive for bilateral lower extremity DVT. The patient reports that he is unable to walk at home and had a recent hospitalization here for 12 days about a month ago. He denies any recent surgery. He denies any recent fever, nausea, vomiting, diarrhea, shortness of breath, syncope, or dysuria. He has some chronic dizziness that he relates to opioid use. He reports a history of prediabetes and states he is not on any medication for this and is not on any special diet for this. . Review of Systems Except as stated in HPI: all other systems reviewed are Neg Past Family Social History Past Medical History Multiple myeloma undergoing treatment with chemotherapy and steroids Peripheral neuropathy COPD Sleep Apnea Multiple myeloma Amyloidosis Prediabetes - no medication or diet . Past Surgical History Hemorrhoidectomy in 1985 Lumbar fusion in 1993 Nose surgery . Reported Medications Reported Meds & Active Scripts Active Neurontin (Gabapentin) 400 Mg Cap 400 Mg PO TID Pantoprazole (Pantoprazole Sodium) 40 Mg Tab 40 Mg PO DAILY 14 Days Dexamethasone 4 Mg Tab 4 Mg PO Q8HR 14 Days Reported Multivitamin Adults (Multiple Vitamins W/ Minerals) 1 Tab 1 Tab PO DAILY Folic + B12 (Cobalamine Combinations) 800-1,000 Mcg Tab 1 Tab PO DAILY Percocet (Oxycodone-Acetaminophen) 10-325 mg Tab 1 Tab PO Q6H PRN Flomax (Tamsulosin HCl) 0.4 Mg Cap 0.4 Mg PO HS . Allergies: Coded Allergies: No Known Allergies (Unverified , 12/06/16) Active Ordered Medications Current Medications Sodium Chloride (NS Flush) 2 ml UNSCH PRN IV FLUSH FLUSH AFTER USING IV ACCESS ; Start 12/06/16 at 18:45 Heparin Sodium (Porcine) (Heparin Inj) 6,000 units ONCE ONCE IV Last administered on 12/06/16t 20:30; Start 12/06/16 at 20:30; Stop 12/06/16 at 20:31 ; Status DC Heparin Sodium (Porcine) (Heparin Inj) 5,000 units UNSCH PRN IV APTT LESS THAN 25; Start 12/07/16 at 02:30 Heparin Sodium (Porcine) 2500 units 2,500 units UNSCH PRN IV APTT 25 TO 39; Start 12/07/16 at 02:30 Heparin Sodium/ Dextrose (Heparin-D5W Inj) 250 ml @ 0 mls/hr TITRATE IV Last administered on 12/06/16t 21:53; Start 12/06/16 at 20:30 Sodium Chloride (NS Flush) 2 ml UNSCH PRN IV FLUSH FLUSH AFTER USING IV ACCESS ; Start 12/06/16 at 21:00 Sodium Chloride (NS Flush) 2 ml BID IV FLUSH ; Start 12/06/16 at 21:00 Naloxone HCl (Narcan Inj) 0.4 mg UNSCH PRN IV SEE LABEL COMMENTS; Start at 21:00 . Family History Father with bladder cancer Mother with heart attack Brother with history of lung cancer Brother with widespread cancer of uncertain etiology . Social History Tobacco: Smoked 1 pack a day for 50 years but quit 2 years ago Alcohol: Denies Illicit Drugs: Denies . Physical Exam Vital Signs Vital Signs Date Time Temp Pulse Resp B/P Pulse Ox O2 Delivery O2 Flow Rate FiO2 12/06/16 21:55 56 20 109/63 100 12/06/16 20:56 75 18 97/56 100 Room Air 12/06/16 18:46 77 18 100 Room Air 12/06/16 18:46 18 100 Room Air 12/06/16 18:00 98.7 72 20 114/56 100 Room Air Physical Exam GENERAL: This is a well-nourished, well-developed patient, in no apparent distress. SKIN: No rashes, ecchymoses or lesions. Cool and dry. HEAD: Atraumatic. Normocephalic. EYES: No scleral icterus. No injection or drainage. ENT: Nose without bleeding, purulent drainage. NECK: Trachea midline. No JVD or lymphadenopathy. CARDIOVASCULAR: Regular rate and rhythm without murmurs, gallops, or rubs. Left lower extremity was significant swelling; mild swelling right lower extremity. RESPIRATORY: Clear to auscultation. Breath sounds equal bilaterally. No wheezes , rales, or rhonchi. GASTROINTESTINAL: Abdomen soft, non-tender, nondistended. No guarding. MUSCULOSKELETAL: Extremities without clubbing, cyanosis. No calf tenderness. NEUROLOGICAL: Awake and alert. Motor and sensory grossly within normal limits. Normal speech. . Laboratory Laboratory Tests Test 12/06/16 12/06/16 18:55 20:57 White Blood Count 13.0 12.5 Red Blood Count 2.93 2.88 Hemoglobin 9.6 9.1 Hematocrit 28.2 28.2 Mean Corpuscular Volume 96.4 98.1 Mean Corpuscular Hemoglobin 32.7 31.8 Mean Corpuscular Hemoglobin 33.9 32.4 Concent Red Cell Distribution Width 17.1 16.8 Platelet Count 215 203 Mean Platelet Volume 7.6 7.3 Neutrophils (%) (Auto) 92.9 Lymphocytes (%) (Auto) 1.8 Monocytes (%) (Auto) 4.9 Eosinophils (%) (Auto) 0.1 Basophils (%) (Auto) 0.3 Neutrophils # (Auto) 12.1 Lymphocytes # (Auto) 0.2 Monocytes # (Auto) 0.6 Eosinophils # (Auto) 0.0 Basophils # (Auto) 0.0 CBC Comment AUTO DIFF Differential Total Cells 100 Counted Neutrophils % (Manual) 79 Band Neutrophils % 11 Lymphocytes % 3 Monocytes % 3 Neutrophils # (Manual) 12.2 Metamyelocytes 3 Myelocytes 1 Differential Comment FINAL DIFF MANUAL Platelet Estimate NORMAL Platelet Morphology Comment NORMAL Red Cell Morphology Comment NORMAL Prothrombin Time 11.2 11.3 Prothromb Time International 1.0 1.0 Ratio Activated Partial 22.6 23.5 Thromboplast Time Sodium Level 140 Potassium Level 4.7 Chloride Level 106 Carbon Dioxide Level 26.1 Anion Gap 8 Blood Urea Nitrogen 21 Creatinine 0.71 Estimat Glomerular Filtration 110 Rate Random Glucose 223 Calcium Level 8.9 Result Diagram: 12/06/16205612/06/161854 Assessment and Plan Problem List: (1) DVT of lower extremity, bilateral ICD Code: I82.403 Status: Acute (2) Anemia ICD Code: D64.9 Status: Acute Assessment and Plan Mr. Skinner is a 70 year old male who presented to the emergency room on 2016 for evaluation of bilateral lower extremity DVT seen on outpatient Doppler at the [facility]. Bilateral DVTs - Heparin drip - Will consult patient's oncologist, Dr. Lang, for assistance with anticoagulation recommendations Anemia, normocytic and normochromic of uncertain etiology - Hgb 9.6 on admission, 9.1 on recheck - Hgb was 12 - 13 during admission in September 2016 - Denies having blood in stool or dark tarry stool - no active bleeding - Will check serial H&H and follow trends - Transfuse if needed; await stool for OB study - follow results Prediabetes with hyperglycemia on admission - BG 206 and 223 - 1800 kcal ADA diet - Accu checks ac and hs with low dose Novolog sliding scale coverage - hypoglycemia protocol - monitor trends in blood glucose and adjust treatment as indicated - bedtime snack ordered DVT prophylaxis - on heparin gtt Written by Noemi Fry, acting as scribe for Dr. Pritchard on 12/06/16 at 22:14. .This note was transcribed by scribe [Noemi Fry]. I, Dr. Jimena Pritchard personally performed the history, physical exam, and medical decision making; and confirmed the accuracy of the information in the transcribed note. Authenticated by Dr. Jimena Pritchard on 12/06/16 at 22:14. Discussed Condition With ER physician, patient, and patient's son Physician Certification 2 Midnight Certification Type: Admission for Inpatient Services Order for Inpatient Services The services are ordered in accordance with Medicare regulations or non- Medicare payer requirements, as applicable. In the case of services not specified as inpatient-only, they are appropriately provided as inpatient services in accordance with the 2-midnight benchmark. Estimated LOS (days): 3 days is the estimated time the patient will need to remain in the hospital, assuming treatment plan goals are met and no additional complications. Post-Hospital Plan: Not yet determined Problem Qualifiers (1) Anemia: Qualified Code: D64.9 - Anemia, unspecified type Noemi Fry Dec 06, 2016 22:15 Jimena Pritchard MD Dec 07, 2016 07:55
[2016-12-06] MEDS: SODIUM CHLORIDE 0.9% FLUSH 10 ML FLUSH IV FLUSH SCH (23:18)
[2016-12-06 23:38] VITALS: BP 132/64; PULSE 75; RESP 20; O2SAT 99
[2016-12-06] MEDS ORDERED: oxyCODONE/ACETAMINOPHEN 10 MG/325 MG TAB PO ONE (23:45)
[2016-12-07] VITALS (10 sets, daily range): BP systolic 95–135; BP diastolic 58–80; PULSE 67–87; RESP 16–18; TEMP 96.5–97.9; O2SAT 96–100
[2016-12-07] MEDS ORDERED: GLUCAGON 1 MG/ML VIAL OTHER PRN (01:45)
[2016-12-07] MEDS ORDERED: DEXTROSE 50% IN WATER 50 ML VIAL(D50) IV PUSH PRN (01:45)
[2016-12-07] MEDS ORDERED: SOD PHOSPHATE/SOD BIPHOSPHATE (ADULT) ENEMA 133ML RECTAL ONE (02:00)
[2016-12-07] MEDS ORDERED: HEPARIN SODIUM - IV 10,000 UNITS/10 ML VIAL IV PRN ×2 (02:30)
[2016-12-07 03:37] LABS: HEMATOCRIT 25.5 % (39.0-51.0); REVIEW FLAG FINAL
[2016-12-07 04:34] LABS: APTT (PATIENT) 94.2 SEC (24.3-30.1)
[2016-12-07] MEDS: DEXAMETHASONE 4 MG TAB PO SCH ×3 (06:29→22:40)
[2016-12-07] MEDS: INSULIN ASPART SUPPLEMENTAL SCALE SQ SCH ×4 (06:31→20:49)
[2016-12-07] MEDS: oxyCODONE/ACETAMINOPHEN 10 MG/325 MG TAB PO PRN ×3 (08:47→22:45)
[2016-12-07] MEDS: PANTOPRAZOLE SOD 40 MG DELAYED RELEASE TAB PO SCH (08:47)
[2016-12-07] MEDS: MULTIVITAMINS/MINERALS THERAPEUTIC TAB PO SCH (08:47)
[2016-12-07] MEDS: FOLIC ACID 1 MG TAB PO SCH (08:48)
[2016-12-07] MEDS: GABAPENTIN 400 MG CAP PO SCH ×3 (08:48→16:23)
[2016-12-07] MEDS: SODIUM CHLORIDE 0.9% FLUSH 10 ML FLUSH IV FLUSH SCH ×2 (08:49→20:49)
[2016-12-07] MEDS ORDERED: PNEUMOCOCCAL POLYVALENT INJ 25 MCG/0.5 ML SYR IM ONE (09:00)
[2016-12-07] MEDS ORDERED: CYANOCOBALAMIN 100 MCG TAB PO SCH (09:00)
--- NOTE | 2016-12-07 09:27 | HHI.PR ---
Subjective Remarks This is a pleasant 70 y/o male who has Multiple Myeloma undergoing treatment with Chemotherapy and Steroids by veterans services specialist doctor Precious, has Amyloidosis, OA, Hyperlipidemia, Migraines, BPH, who came to Emergency Room on 12/06/16 for evaluation of Bilateral lower extremity DVT seen on outpatient Doppler at the [facility], instructed by his PCP to come to ER, Last Tuesday, the patient's physical therapist noted swelling in his left leg and recommended that he get it checked out. He saw his primary care physician who ordered the Doppler which was positive for bilateral lower extremity DVT. The patient reported that he was unable to walk at home and had a recent hospitalization here for 12 days about a month ago. He denies any recent surgery. He denies any recent fever, nausea, vomiting, diarrhea, shortness of breath, syncope, or dysuria. He has some chronic dizziness that he relates to opioid use. He reports a history of prediabetes and states he is not on any medication for this and is not on any special diet for this. 12/07: Seen in his bedroom, no Nausea, vomit or diarrhea, had a BM yesterday but was used an Enema, discussed with Nurse Miss Wilson appreciated, he has no complaint, left swollen leg. Objective Vital Signs Date Time Temp Pulse Resp B/P Pulse Ox O2 Delivery O2 Flow Rate FiO2 12/07/16 08:00 96.5 70 16 134/80 97 12/07/16 04:00 97.7 67 17 134/65 98 12/07/16 01:06 73 12/07/16 00:30 97.2 76 17 135/69 100 12/06/16 23:38 75 20 132/64 99 12/06/16 21:55 56 20 109/63 100 12/06/16 20:56 75 18 97/56 100 Room Air 12/06/16 18:46 77 18 100 Room Air 12/06/16 18:46 18 100 Room Air 12/06/16 18:00 98.7 72 20 114/56 100 Room Air I/O 12/06/16 12/06/16 12/06/16 12/07/16 12/07/16 12/07/16 07:00 15:00 23:00 07:00 15:00 23:00 Intake Total 100 ml Output Total 600 ml Balance -500 ml Intake IV Total 100 ml Output Urine Total 600 ml # Bowel Movements 1 Result Diagram: 12/07/16 0325 12/06/16 1855 Imaging No Imaging studies performed Procedures No procedures performed. Other Results Laboratory Tests Test 12/06/16 12/06/16 12/07/16 18:55 20:57 03:25 Neutrophils (%) (Auto) 92.9 % Lymphocytes (%) (Auto) 1.8 % Monocytes (%) (Auto) 4.9 % Eosinophils (%) (Auto) 0.1 % Basophils (%) (Auto) 0.3 % Neutrophils # (Auto) 12.1 TH/MM3 Lymphocytes # (Auto) 0.2 TH/MM3 Monocytes # (Auto) 0.6 TH/MM3 Eosinophils # (Auto) 0.0 TH/MM3 Basophils # (Auto) 0.0 TH/MM3 CBC Comment AUTO DIFF Differential Total Cells 100 Counted Neutrophils % (Manual) 79 % Band Neutrophils % 11 % Lymphocytes % 3 % Monocytes % 3 % Neutrophils # (Manual) 12.2 TH/MM3 Metamyelocytes 3 % Myelocytes 1 % Differential Comment FINAL DIFF MANUAL Platelet Estimate NORMAL Platelet Morphology Comment NORMAL Red Cell Morphology Comment NORMAL Sodium Level 140 MEQ/L Potassium Level 4.7 MEQ/L Chloride Level 106 MEQ/L Carbon Dioxide Level 26.1 MEQ/L Anion Gap 8 MEQ/L Blood Urea Nitrogen 21 MG/DL Creatinine 0.71 MG/DL Estimat Glomerular Filtration 110 ML/MIN Rate Random Glucose 223 MG/DL Calcium Level 8.9 MG/DL White Blood Count 12.5 TH/MM3 Red Blood Count 2.88 MIL/MM3 Mean Corpuscular Volume 98.1 FL Mean Corpuscular Hemoglobin 31.8 PG Mean Corpuscular Hemoglobin 32.4 % Concent Red Cell Distribution Width 16.8 % Platelet Count 203 TH/MM3 Mean Platelet Volume 7.3 FL Prothrombin Time 11.3 SEC Prothromb Time International 1.0 RATIO Ratio Hemoglobin 8.7 GM/DL Hematocrit 25.5 % Activated Partial 94.2 SEC Thromboplast Time Objective Remarks GENERAL: This is a well-nourished, well-developed patient, in no apparent distress. SKIN: No rashes, ecchymoses or lesions. Cool and dry. HEAD: Atraumatic. Normocephalic. EYES: No scleral icterus. No injection or drainage. ENT: Nose without bleeding, purulent drainage. NECK: Trachea midline. No JVD or lymphadenopathy. CARDIOVASCULAR: Regular rate and rhythm without murmurs, gallops, or rubs. RESPIRATORY: Clear to auscultation. Breath sounds equal bilaterally. No wheezes , rales, or rhonchi. GASTROINTESTINAL: Abdomen soft, non-tender, nondistended. No guarding. MUSCULOSKELETAL: Extremities without clubbing, cyanosis. left leg edema. NEUROLOGICAL: Awake and alert. Motor and sensory grossly within normal limits. Normal speech. Medications and IVs Current Medications Medications (Trade) Dose Ordered Sig/Garry Route Start Time Stop Time Status Last Admin (NS Flush) 2 ml UNSCH PRN IV FLUSH 12/06/16 18:45 (Heparin Inj) 5,000 units UNSCH PRN IV 12/07/16 02:30 Heparin Sodium (Porcine) 2500 units 2,500 units UNSCH PRN IV 12/07/16 02:30 (Heparin-D5W Inj) 250 ml @ 0 mls/hr TITRATE IV 12/06/16 20:30 12/06/16 21:53 (NS Flush) 2 ml UNSCH PRN IV FLUSH 12/06/16 21:00 (NS Flush) 2 ml BID IV FLUSH 12/06/16 21:00 12/06/16 23:18 (Narcan Inj) 0.4 mg UNSCH PRN IV 12/06/16 21:00 (Flu (Quadrivalent) Vaccine Inj) 0.5 ml ONCE ONCE IM 12/08/16 10:00 12/08/16 10:01 (D50w (Vial) Inj) 25 ml UNSCH PRN IV PUSH 12/07/16 01:45 (Glucagon Inj) 1 mg UNSCH PRN OTHER 12/07/16 01:45 (Decadron) 4 mg Q8HR PO 12/07/16 06:00 12/07/16 06:29 (Neurontin) 400 mg TID PO 12/07/16 09:00 12/07/16 08:48 (Theragran M Tab) 1 tab DAILY PO 12/07/16 09:00 12/07/16 08:47 (Protonix) 40 mg DAILY PO 12/07/16 09:00 12/07/16 08:47 (Flomax) 0.4 mg HS PO 12/07/16 21:00 (Vitamin B12) 1 mcg DAILY PO 12/07/16 09:00 (Folate) 1 mg DAILY PO 12/07/16 09:00 12/07/16 08:48 (Percocet 10-325 Mg) 1 tab Q6H PRN PO 12/07/16 03:00 12/07/16 08:47 A/P Assessment and Plan 1. Bilateral DVT on Hepatin Drip, veterans services specialist Doctor Precious consulted. probable will discharge ON Pradaxa after five days of Heparin Drip. 2. Anemia probable secondary to his basal Pathology Multiple Myeloma and Chemotherapy, - Hgb 9.6 on admission, 9.1 on recheck - Hgb was 12 - 13 during admission in September 2016 3. Prediabetes continue Accu checks and continue sliding scale, Hemoglobin A1C to follow, Diabetic Diet. 4. Peripheral Neuropathy 5. COPD on Bronchodilator, Mucolytic and incentive spirometry. 6. GAYLE by history. DVT prophylaxis Heparin Drip. Discharge Planning Once cleared by Hematology and veterans services specialist. Johnny Ndiaye MD Dec 07, 2016 09:27
[2016-12-07] MEDS: RESP: ALBUTEROL 2.5 MG/IPRATROPIUM 0.5 MG NEB (SCH) NEB ×3 (10:51→20:25)
[2016-12-07 10:59] LABS: AUTOMATED NEUTROPHIL # 12.2 TH/MM3 (1.8-7.7); BASOPHIL % 0.1 % (0.0-2.0); EOSINOPHIL % 0.2 % (0.0-4.0); HEMATOCRIT 26.6 % (39.0-51.0); LYMPH % 1.4 % (9.0-44.0); LYMPHOCYTE # 0.2 TH/MM3 (1.0-4.8); MEAN CORPUSCULAR HEMOGLOBIN 33.2 PG (27.0-34.0); MEAN CORPUSCULAR HGB CONC 34.2 % (32.0-36.0); MONO % 4.5 % (0.0-8.0); NEUT % 93.8 % (16.0-70.0); PLATELET COUNT 204 TH/MM3 (150-450); RED BLOOD COUNT 2.74 MIL/MM3 (4.50-5.90); RED CELL DISTRIBUTION WIDTH 16.9 % (11.6-17.2)
[2016-12-07 11:01] LABS: HEMO FLAGS AUTO DIFF
[2016-12-07] MEDS: CYANOCOBALAMIN 1,000 MCG TAB PO SCH (11:18)
[2016-12-07] MEDS: DOCUSATE SODIUM 50 MG/SENNA 8.6 MG TAB PO SCH ×2 (11:18→20:48)
[2016-12-07] MEDS: guaiFENesin E.R. 600 MG TAB PO SCH ×2 (11:18→20:47)
[2016-12-07 11:40] LABS: BANDS 10 % (0-6); METAMYELOCYTES 1 % (0-1); MYELOCYTES 8 % (0-0); NEUTROPHIL # MANUAL DIFF 12.5 TH/MM3 (1.8-7.7); POLYS (SEG NEUTROPHILS) 76 % (16-70); PROMYELOCYTES 1 % (0-0); WBC DIFF SAMPLE 100
[2016-12-07 11:41] LABS: PLATELET ESTIMATE SMEAR NORMAL (NORMAL); PLATELET MORPHOLOGY NORMAL (NORMAL); SCAN/DIFF FINAL DIFF MANUAL
[2016-12-07 11:44] LABS: POTASSIUM 3.9 MEQ/L (3.5-5.1)
[2016-12-07 12:11] LABS: APTT (PATIENT) 57.3 SEC (24.3-30.1)
[2016-12-07 15:34] LABS: HEMATOCRIT 25.2 % (39.0-51.0); REVIEW FLAG FINAL
[2016-12-07 17:37] LABS: APTT (PATIENT) 57.7 SEC (24.3-30.1)
[2016-12-07 17:58] LABS: HEMOGLOBIN A1a 2.1 %; HEMOGLOBIN A1b 1.3 %; HEMOGLOBIN Ao 81.4 %; HEMOGLOBIN F 1.2 %; HEMOGLOBIN LA1C 2.3 %; HEMOGLOBIN P3 6.2 %
[2016-12-07] MEDS: HEPARIN-D5W INJ 250 ML IV SCH (20:53)
[2016-12-07 20:54] LABS: HEMATOCRIT 26.5 % (39.0-51.0); REVIEW FLAG FINAL
[2016-12-07] MEDS ORDERED: TAMSULOSIN HCL 0.4 MG CAP PO SCH (21:00)
[2016-12-08] VITALS (9 sets, daily range): BP systolic 93–106; BP diastolic 56–83; PULSE 70–111; RESP 18–20; TEMP 96–97.1; O2SAT 93–100
[2016-12-08] MEDS: RESP: ALBUTEROL 2.5 MG/IPRATROPIUM 0.5 MG NEB (SCH) NEB ×3 (03:12→15:20)
[2016-12-08] MEDS: DEXAMETHASONE 4 MG TAB PO SCH ×2 (05:35→13:55)
[2016-12-08] MEDS: INSULIN ASPART SUPPLEMENTAL SCALE SQ SCH ×2 (05:35→13:55)
--- NOTE | 2016-12-08 06:51 | MB ---
cc: SIMON LANG M.D. DATE OF CONSULTATION 12/07/2016 REASON FOR CONSULTATION Consult requested by [facility] for evaluation of left lower extremity DVT. HISTORY OF PRESENT ILLNESS Win is a 70-year-old male. He is well-known to me. He has multiple myeloma which has progressed into amyloidosis. Currently the patient is on Alkeran and prednisone therapy. The patient recently noted swelling of the left lower extremity. He went to see his primary care physician who had ordered the Doppler ultrasound which showed bilateral DVTs. The patient was advised to come to the emergency room for further evaluation and treatment. The patient is now admitted to the hospital. The patient was started on heparin drip. I have been asked to see him for further evaluation. The patient states that the swelling of the right leg has resolved, but he still has swelling of the left leg, but it is not causing the pain. Previously, he had a lot of pain in the left leg which is resolving since he has been on a heparin drip. His hoarseness of voice is improving. He denies any cough or shortness of breath. He still has numbness and tingling of the fingers and toes due to chronic peripheral neuropathy. The rest of the review of systems is negative. PAST MEDICAL HISTORY 1. Arthritis 2. BPH 3. COPD 4. Diabetes mellitus 5. Hemorrhoids 6. Hypercholesterolemia 7. Osteopenia 8. Multiple myeloma 9. Amyloidosis PAST SURGICAL HISTORY 1. Cataract 2. Colonoscopy 3. Nasal surgery 4. Lumbar fusion ALLERGIES None MEDICATIONS Please see EMR. FAMILY HISTORY Noncontributory SOCIAL HISTORY The patient does not smoke cigarettes, does not drink alcohol. PHYSICAL EXAM This is a well-developed, well-nourished male in no apparent distress. VITAL SIGNS: Temperature 97.9, heart rate is 80, blood pressure 99/58, O2 saturation 99 on room air. HEENT: PERRLA, EOMI, anicteric. No oral lesions noted. NECK: Supple. There is no cervical, supraclavicular or axillary lymphadenopathy noted. LUNGS: Clear. No wheezing, rhonchi or rales. HEART: Regular rate and rhythm. ABDOMEN: Soft and nontender. No hepatosplenomegaly. EXTREMITIES: Edema of the left lower extremity noted. Right lower extremity does not have any swelling. NEUROLOGIC: Awake, alert, oriented x3. SKIN: No significant lesions noted. ASSESSMENT 1. Bilateral lower extremity DVTs currently on heparin. 2. Multiple myeloma/amyloidosis currently on chemotherapy Alkeran and prednisone. 3. Multiple medical problems. PLAN I have reviewed his records and I have discussed with the patient regarding the bilateral DVTs. This is probably due to his inactivity and sedentary condition. He has severe peripheral neuropathy and it has been difficult for the patient to ambulate. Certainly, myeloma is also contributing to the hypercoagulable state. I agree with heparin anticoagulation at this time. After 48 to 72 hours, we will switch him over to newer oral anticoagulant such as Eliquis or Xarelto. Further recommendations will be based on his hospital stay. The patient has asked questions and these were answered to his satisfaction. Thank you for asking my opinion. Adeel Lang MD /HEATH /5:25 AM /6:35 AM
[2016-12-08 07:23] LABS: APTT (PATIENT) 62.6 SEC (24.3-30.1)
--- NOTE | 2016-12-08 08:14 | HHI.PR ---
Subjective Remarks This is a pleasant 70 y/o male who has Multiple Myeloma undergoing treatment with Chemotherapy and Steroids by human service specialist doctor Precious, has Amyloidosis, OA, Hyperlipidemia, Migraines, BPH, who came to Emergency Room on 12/06/16 for evaluation of Bilateral lower extremity DVT seen on outpatient Doppler at the [facility], instructed by his PCP to come to ER, Last Tuesday, the patient's physical therapist noted swelling in his left leg and recommended that he get it checked out. He saw his primary care physician who ordered the Doppler which was positive for bilateral lower extremity DVT. The patient reported that he was unable to walk at home and had a recent hospitalization here for 12 days about a month ago. He denies any recent surgery. He denies any recent fever, nausea, vomiting, diarrhea, shortness of breath, syncope, or dysuria. He has some chronic dizziness that he relates to opioid use. He reports a history of prediabetes and states he is not on any medication for this and is not on any special diet for this. 12/07: Seen in his bedroom, no Nausea, vomit or diarrhea, had a BM yesterday but was used an Enema, discussed with Nurse Miss Buenrostrotany appreciated, he has no complaint, left swollen leg. 12/08: Seen by human service specialist Doctor Adeel Lang probable related to inactivity and sedentary condition Agree with Heparin anticoagulation after 48 to 72 hours will switch to probable Eliquis or Xarelto. No Nausea vomit or diarrhea Objective Vital Signs Date Time Temp Pulse Resp B/P Pulse Ox O2 Delivery O2 Flow Rate FiO2 12/08/16 04:00 97.1 71 18 106/60 99 12/08/16 00:00 96.0 81 18 106/56 98 12/07/16 20:42 87 12/07/16 20:26 99 21 12/07/16 20:00 97.9 80 18 99/58 99 12/07/16 16:00 96.9 80 16 105/66 99 12/07/16 12:42 96.9 76 16 95/59 99 12/07/16 10:54 96 21 I/O 12/07/16 12/07/16 12/07/16 12/08/16 12/08/16 12/08/16 07:00 15:00 23:00 07:00 15:00 23:00 Intake Total 100 ml 685 ml 155 ml Output Total 600 ml 200 ml Balance -500 ml 485 ml 155 ml Intake Oral 600 ml IV Total 100 ml 85 ml 155 ml Output Urine Total 600 ml 200 ml # Voids 1 # Bowel Movements 1 Result Diagram: 12/07/16204412/07/16 1025 Imaging No new Imaging studies Procedures No procedures performed. Other Results Laboratory Tests Test 12/06/16 12/06/16 12/07/16 12/07/16 18:55 20:57 03:25 10:25 Red Cell Morphology Comment NORMAL Prothrombin Time 11.3 SEC Prothromb Time International 1.0 RATIO Ratio Hemoglobin A1c 6.7 % White Blood Count 13.0 TH/MM3 Red Blood Count 2.74 MIL/MM3 Mean Corpuscular Volume 97.0 FL Mean Corpuscular Hemoglobin 33.2 PG Mean Corpuscular Hemoglobin 34.2 % Concent Red Cell Distribution Width 16.9 % Platelet Count 204 TH/MM3 Mean Platelet Volume 7.8 FL Neutrophils (%) (Auto) 93.8 % Lymphocytes (%) (Auto) 1.4 % Monocytes (%) (Auto) 4.5 % Eosinophils (%) (Auto) 0.2 % Basophils (%) (Auto) 0.1 % Neutrophils # (Auto) 12.2 TH/MM3 Lymphocytes # (Auto) 0.2 TH/MM3 Monocytes # (Auto) 0.6 TH/MM3 Eosinophils # (Auto) 0.0 TH/MM3 Basophils # (Auto) 0.0 TH/MM3 CBC Comment AUTO DIFF Differential Total Cells 100 Counted Neutrophils % (Manual) 76 % Band Neutrophils % 10 % Lymphocytes % 2 % Monocytes % 2 % Neutrophils # (Manual) 12.5 TH/MM3 Metamyelocytes 1 % Myelocytes 8 % Promyelocytes 1 % Differential Comment FINAL DIFF MANUAL Platelet Estimate NORMAL Platelet Morphology Comment NORMAL Sodium Level 141 MEQ/L Potassium Level 3.9 MEQ/L Chloride Level 105 MEQ/L Carbon Dioxide Level 25.0 MEQ/L Anion Gap 11 MEQ/L Blood Urea Nitrogen 19 MG/DL Creatinine 0.62 MG/DL Estimat Glomerular Filtration 128 ML/MIN Rate Random Glucose 211 MG/DL Calcium Level 8.7 MG/DL Test 12/07/16 12/08/16 20:45 06:36 Hemoglobin 9.0 GM/DL Hematocrit 26.5 % Activated Partial 62.6 SEC Thromboplast Time Objective Remarks GENERAL: This is a well-nourished, well-developed patient, in no apparent distress. SKIN: No rashes, ecchymoses or lesions. Cool and dry. HEAD: Atraumatic. Normocephalic. EYES: No scleral icterus. No injection or drainage. ENT: Nose without bleeding, purulent drainage. NECK: Trachea midline. No JVD or lymphadenopathy. CARDIOVASCULAR: Regular rate and rhythm without murmurs, gallops, or rubs. RESPIRATORY: Clear to auscultation. Breath sounds equal bilaterally. No wheezes , rales, or rhonchi. GASTROINTESTINAL: Abdomen soft, non-tender, nondistended. No guarding. MUSCULOSKELETAL: Extremities without clubbing, cyanosis. left leg edema. NEUROLOGICAL: Awake and alert. Motor and sensory grossly within normal limits. Normal speech. Medications and IVs Current Medications Medications (Trade) Dose Ordered Sig/Garry Route Start Time Stop Time Status Last Admin (NS Flush) 2 ml UNSCH PRN IV FLUSH 12/06/16 18:45 (Heparin Inj) 5,000 units UNSCH PRN IV 12/07/16 02:30 Heparin Sodium (Porcine) 2500 units 2,500 units UNSCH PRN IV 12/07/16 02:30 (Heparin-D5W Inj) 250 ml @ 0 mls/hr TITRATE IV 12/06/16 20:30 12/07/16 20:53 (NS Flush) 2 ml UNSCH PRN IV FLUSH 12/06/16 21:00 (NS Flush) 2 ml BID IV FLUSH 12/06/16 21:00 12/06/16 23:18 (Narcan Inj) 0.4 mg UNSCH PRN IV 12/06/16 21:00 (Flu (Quadrivalent) Vaccine Inj) 0.5 ml ONCE ONCE IM 12/08/16 10:00 12/08/16 10:01 (D50w (Vial) Inj) 25 ml UNSCH PRN IV PUSH 12/07/16 01:45 (Glucagon Inj) 1 mg UNSCH PRN OTHER 12/07/16 01:45 (Decadron) 4 mg Q8HR PO 12/07/16 06:00 12/08/16 05:35 (Neurontin) 400 mg TID PO 12/07/16 09:00 12/07/16 16:23 (Theragran M Tab) 1 tab DAILY PO 12/07/16 09:00 12/07/16 08:47 (Protonix) 40 mg DAILY PO 12/07/16 09:00 12/07/16 08:47 (Flomax) 0.4 mg HS PO 12/07/16 21:00 12/07/16 20:48 (Folate) 1 mg DAILY PO 12/07/16 09:00 12/07/16 08:48 (Percocet 10-325 Mg) 1 tab Q6H PRN PO 12/07/16 03:00 12/07/16 22:45 (Ariela-Colace) 1 tab BID PO 12/07/16 10:15 12/07/16 20:48 (Mucinex Er) 600 mg BID PO 12/07/16 10:15 12/07/16 20:47 (Vitamin B12) 1,000 mcg DAILY PO 12/07/16 10:15 12/07/16 11:18 A/P Assessment and Plan 1. Bilateral DVT on Hepatin Drip, human service specialist Doctor Precious consulted. probable will discharge Seen by human service specialist Doctor Adeel Lang probable related to inactivity and sedentary condition Agree with Heparin anticoagulation after 48 to 72 hours will switch to probable Eliquis or Xarelto. 2. Anemia probable secondary to his basal Pathology Multiple Myeloma and Chemotherapy, - Hgb 9.6 on admission, 9 today. - Hgb was 12 - 13 during admission in September 2016 3. Prediabetes continue Accu checks and continue sliding scale, Hemoglobin A1C 6.7, Diabetic Diet. 4. Peripheral Neuropathy 5. COPD on Bronchodilator, Mucolytic and incentive spirometry. 6. GAYLE by history. DVT prophylaxis Heparin Drip. Discharge Planning Once cleared by Hematology and human service specialist. Johnny Ndiaye MD Dec 08, 2016 08:14
[2016-12-08] MEDS: SODIUM CHLORIDE 0.9% FLUSH 10 ML FLUSH IV FLUSH SCH (09:00)
[2016-12-08] MEDS: FOLIC ACID 1 MG TAB PO SCH (09:58)
[2016-12-08] MEDS: DOCUSATE SODIUM 50 MG/SENNA 8.6 MG TAB PO SCH (09:58)
[2016-12-08] MEDS: oxyCODONE/ACETAMINOPHEN 10 MG/325 MG TAB PO PRN (09:58)
[2016-12-08] MEDS: PANTOPRAZOLE SOD 40 MG DELAYED RELEASE TAB PO SCH (09:58)
[2016-12-08] MEDS: GABAPENTIN 400 MG CAP PO SCH ×2 (09:58→13:55)
[2016-12-08] MEDS: MULTIVITAMINS/MINERALS THERAPEUTIC TAB PO SCH (09:58)
[2016-12-08] MEDS: guaiFENesin E.R. 600 MG TAB PO SCH (09:58)
[2016-12-08] MEDS: CYANOCOBALAMIN 1,000 MCG TAB PO SCH (09:58)
[2016-12-08] MEDS ORDERED: INFLUENZA VIRUS VACCINE (QUADRIVALENT) 0.5 ML SYR IM ONE (10:00)
[2016-12-08] MEDS ORDERED: APIX5TAB PO (11:06)
--- NOTE | 2016-12-08 11:06 | PD.ONC.PN ---
Subjective Subjective Remarks Afebrile overnight. Patient resting comfortably without complaint. Still has some swelling in the left leg but it is improved. Objective Data Date Time Temp Pulse Resp B/P Pulse Ox O2 Delivery O2 Flow Rate FiO2 12/08/16 09:00 96.7 73 20 98/64 100 12/08/16 04:00 97.1 71 18 106/60 99 12/08/16 00:00 96.0 81 18 106/56 98 12/07/16 20:42 87 12/07/16 20:26 99 21 12/07/16 20:00 97.9 80 18 99/58 99 12/07/16 16:00 96.9 80 16 105/66 99 12/07/16 12:42 96.9 76 16 95/59 99 Result Diagram: 12/07/16204412/07/16 102 Laboratory Results Laboratory Tests Test 12/07/16 12/07/16 12/07/16 12/07/16 11:35 15:06 17:18 20:45 Activated Partial 57.3 SEC 57.7 SEC Thromboplast Time Hemoglobin 8.7 GM/DL 9.0 GM/DL Hematocrit 25.2 % 26.5 % Test 12/08/16 06:36 Activated Partial 62.6 SEC Thromboplast Time Culture Results Microbiology Date/Time Procedure Status Source Growth 12/07/16 04:00 Stool Occult Blood (WILLIE) - Final Complete Stool Stool HEMOCCULT NEGATIVE Administered Medications Medications (Trade) Dose Ordered Sig/Garry Route PRN Reason Start Time Stop Time Status Last Admin Dose Admin Heparin Sodium/ Dextrose (Heparin-D5W Inj) 250 ml @ 0 mls/hr TITRATE IV 12/06/16 20:30 12/07/16 20:53 Sodium Chloride (NS Flush) 2 ml BID IV FLUSH 12/06/16 21:00 12/06/16 23:18 Dexamethasone (Decadron) 4 mg Q8HR PO 12/07/16 06:00 12/08/16 05:35 Gabapentin (Neurontin) 400 mg TID PO 12/07/16 09:00 12/08/16 09:58 Multivitamins/ Minerals Therapeutic (Theragran M Tab) 1 tab DAILY PO 12/07/16 09:00 12/08/16 09:58 Pantoprazole Sodium (Protonix) 40 mg DAILY PO 12/07/16 09:00 12/08/16 09:58 Tamsulosin HCl (Flomax) 0.4 mg HS PO 12/07/16 21:00 12/07/16 20:48 Folic Acid (Folate) 1 mg DAILY PO 12/07/16 09:00 12/08/16 09:58 Oxycodone/ Acetaminophen (Percocet 10-325 Mg) 1 tab Q6H PRN PO PAIN 12/07/16 03:00 12/08/16 09:58 Senna/Docusate Sodium (Ariela-Colace) 1 tab BID PO 12/07/16 10:15 12/08/16 09:58 Guaifenesin (Mucinex Er) 600 mg BID PO 12/07/16 10:15 12/08/16 09:58 Cyanocobalamin (Vitamin B12) 1,000 mcg DAILY PO 12/07/16 10:15 12/08/16 09:58 Objective Remarks GENERAL: Elderly male, sitting up in bed in [facility]. SKIN: Warm and dry. HEAD: Normocephalic. EYES: No injection or drainage. NECK: Supple, trachea midline. CARDIOVASCULAR: Regular rate and rhythm RESPIRATORY: Breath sounds equal bilaterally. No accessory muscle use. GASTROINTESTINAL: Abdomen soft, non-tender, nondistended. EXTREMITIES: No cyanosis. Edema, LLE. MUSCULOSKELETAL: Adequate muscle tone. NEUROLOGICAL: awake and alert, normal speech. Assessment/Plan Problem List: (1) DVT of lower extremity, bilateral Status: Acute Plan: 12/08: stop heparin gtt. start Eliquis clear for discharge after starting Eliquis today. --d/t inactivity + hypercoagulable state from MM Assessment 70y/o male with newly diagnosed left lower extremity DVT. h/o multiple myeloma which has progressed into amyloidosis. Currently on Alkeran and prednisone therapy. BPH, COPD, Diabetes mellitus Attending Statement leg swelling is better. stop heparin and start eliquis. ok to d/c fu as outpt. Ana Cristina Starkey Dec 08, 2016 11:06 Alia Lang MD Dec 08, 2016 22:51
[2016-12-08] MEDS ORDERED: APIXABAN 5 MG TABLET PO SCH (12:00)
[2016-12-08] MEDS ORDERED: PSYLLIUM FIBER SF/GF 6 GM POWD PKT PO SCH (13:00)
--- NOTE | 2016-12-08 15:30 | HHI.FF ---
Face to Face Verification Diagnosis: (1) Lung mass (2) Neuropathic pain (3) DVT of lower extremity, bilateral (4) Anemia (5) Multiple myeloma Physical Therapy Order: Evaluate and Treat, Improve ambulation, Strength and gait training Home Health Nursing Order: Medical education Signs/symptoms of disease process Medication education-adverse effect Nursing assessment with vital signs I have seen patient Win Skinner on 12/08/16. My clinical findings support the need for the requested home health care services because: Ltd mobility - disease progression Deconditioned w/ increased weakness I certify that my clinical findings support that this patient is homebound because: Unsteady gait/balance Unsafe to leave home unassisted Johnny Ndiaye MD Dec 08, 2016 15:30
--- NOTE | 2016-12-08 15:34 | HHI.DS ---
Discharge Summary Admission Date Dec 06, 2016 at 20:46 Discharge Date: Dec 08, 2016 Admitting Diagnosis extensive bilateral DVTs, multiple myeloma (1) DVT of lower extremity, bilateral ICD Code: I82.403 (2) Anemia ICD Code: D64.9 Diagnosis: Principal Procedures No procedures performed. Brief History - From Admission Mr. Skinner is a 70 year old male with a history of multiple myeloma undergoing treatment with chemotherapy and steroids (under the care of oncologist Dr. Lang), amyloidosis, osteoarthritis, hyperlipidemia, migraines , and BPH who presented to the emergency room on 12/06/2016 for evaluation of bilateral lower extremity DVT seen on outpatient Doppler at the [facility] today. The patient was instructed by his primary care physician to come to the hospital for treatment and evaluation. Last Tuesday, the patient's physical therapist noted swelling in his left leg and recommended that he get it checked out. He saw his primary care physician who ordered the Doppler which was positive for bilateral lower extremity DVT. The patient reports that he is unable to walk at home and had a recent hospitalization here for 12 days about a month ago. He denies any recent surgery. He denies any recent fever, nausea, vomiting, diarrhea, shortness of breath, syncope, or dysuria. He has some chronic dizziness that he relates to opioid use. He reports a history of prediabetes and states he is not on any medication for this and is not on any special diet for this. . CBC/BMP: 12/07/165 12/07/16 1025 Significant Findings Laboratory Tests Test 12/06/16 12/06/16 12/07/16 12/07/16 18:55 20:57 03:25 10:25 White Blood Count 13.0 TH/MM3 12.5 TH/MM3 13.0 TH/MM3 (4.0-11.0) (4.0-11.0) (4.0-11.0) Red Blood Count 2.93 MIL/MM3 2.88 MIL/MM3 2.74 MIL/MM3 (4.50-5.90) (4.50-5.90) (4.50-5.90) Hemoglobin 9.6 GM/DL 9.1 GM/DL 8.7 GM/DL 9.1 GM/DL (13.0-17.0) (13.0-17.0) (13.0-17.0) (13.0-17.0) Hematocrit 28.2 % 28.2 % 25.5 % 26.6 % (39.0-51.0) (39.0-51.0) (39.0-51.0) (39.0-51.0) Neutrophils (%) (Auto) 92.9 % 93.8 % (16.0-70.0) (16.0-70.0) Lymphocytes (%) (Auto) 1.8 % 1.4 % (9.0-44.0) (9.0-44.0) Neutrophils # (Auto) 12.1 TH/MM3 12.2 TH/MM3 (1.8-7.7) (1.8-7.7) Lymphocytes # (Auto) 0.2 TH/MM3 0.2 TH/MM3 (1.0-4.8) (1.0-4.8) Neutrophils % (Manual) 79 % (16-70) 76 % (16-70) Band Neutrophils % 11 % (0-6) 10 % (0-6) Lymphocytes % 3 % (9-44) 2 % (9-44) Neutrophils # (Manual) 12.2 TH/MM3 12.5 TH/MM3 (1.8-7.7) (1.8-7.7) Metamyelocytes 3 % (0-1) Myelocytes 1 % (0-0) 8 % (0-0) Activated Partial 22.6 SEC 23.5 SEC 94.2 SEC Thromboplast Time (24.3-30.1) (24.3-30.1) (24.3-30.1) Blood Urea Nitrogen 21 MG/DL (7-18) 19 MG/DL (7-18) Random Glucose 223 MG/DL 211 MG/DL (74-106) (74-106) Hemoglobin A1c 6.7 % (4.3-6.0) Promyelocytes 1 % (0-0) Test 12/07/16 12/07/16 12/07/16 12/07/16 11:35 15:06 17:18 20:45 Activated Partial 57.3 SEC 57.7 SEC Thromboplast Time (24.3-30.1) (24.3-30.1) Hemoglobin 8.7 GM/DL 9.0 GM/DL (13.0-17.0) (13.0-17.0) Hematocrit 25.2 % 26.5 % (39.0-51.0) (39.0-51.0) Test 12/08/16 06:36 Activated Partial 62.6 SEC Thromboplast Time (24.3-30.1) Imaging No new imaging studies. PE at Discharge GENERAL: This is a well-nourished, well-developed patient, in no apparent distress. SKIN: No rashes, ecchymoses or lesions. Cool and dry. HEAD: Atraumatic. Normocephalic. EYES: No scleral icterus. No injection or drainage. ENT: Nose without bleeding, purulent drainage. NECK: Trachea midline. No JVD or lymphadenopathy. CARDIOVASCULAR: Regular rate and rhythm without murmurs, gallops, or rubs. RESPIRATORY: Clear to auscultation. Breath sounds equal bilaterally. No wheezes , rales, or rhonchi. GASTROINTESTINAL: Abdomen soft, non-tender, nondistended. No guarding. MUSCULOSKELETAL: Extremities without clubbing, cyanosis. left leg edema. NEUROLOGICAL: Awake and alert. Motor and sensory grossly within normal limits. Normal speech. Hospital Course This is a pleasant 70 y/o male who has Multiple Myeloma undergoing treatment with Chemotherapy and Steroids by oncology account specialist doctor Precious, has Amyloidosis, OA, Hyperlipidemia, Migraines, BPH, who came to Emergency Room on 12/06/16 for evaluation of Bilateral lower extremity DVT seen on outpatient Doppler at the [facility], instructed by his PCP to come to ER, Last Tuesday, the patient's physical therapist noted swelling in his left leg and recommended that he get it checked out. He saw his primary care physician who ordered the Doppler which was positive for bilateral lower extremity DVT. The patient reported that he was unable to walk at home and had a recent hospitalization here for 12 days about a month ago. He denies any recent surgery. He denies any recent fever, nausea, vomiting, diarrhea, shortness of breath, syncope, or dysuria. He has some chronic dizziness that he relates to opioid use. He reports a history of prediabetes and states he is not on any medication for this and is not on any special diet for this. 12/07: Seen in his bedroom, no Nausea, vomit or diarrhea, had a BM yesterday but was used an Enema, discussed with Nurse Miss Wilson appreciated, he has no complaint, left swollen leg. 12/08: Seen by oncology account specialist Doctor Adeel Lang probable related to inactivity and sedentary condition Agree with Heparin anticoagulation after 48 to 72 hours will switch to probable Eliquis or Xarelto. No Nausea vomit or diarrhea Assessment and Plan 1. Bilateral DVT on Hepatin Drip, oncology account specialist Doctor Precious consulted. probable will discharge Seen by oncology account specialist Doctor Adeel Lang probable related to inactivity and sedentary condition Agree with Heparin, but today is discontinued and started on Eliquis and recommended for Discharge Home at this time. 2. Anemia probable secondary to his basal Pathology Multiple Myeloma and Chemotherapy, - Hgb 9.6 on admission, 9 today. - Hgb was 12 - 13 during admission in September 2016 3. Prediabetes continue Accu checks and continue sliding scale, Hemoglobin A1C 6.7, Diabetic Diet. 4. Peripheral Neuropathy, seen by Physical Therapy will continue with HH at discharge for PT and Skilled nurse, resume at discharge the patient already had this service. 5. COPD on Bronchodilator, Mucolytic and incentive spirometry. 6. GAYLE by history. 7. Constipation given Metamucil and Docusate DVT prophylaxis Heparin Drip. Discharge Planning Discharge Home on [facility] for PT and Skilled nurse. Pt Condition on Discharge: Good Discharge Disposition: Disch w/ Home Health Serv Discharge Time: <= 30 minutes Discharge Instructions DIET: Follow Instructions for: Heart Healthy Diet Activities you can perform: Regular-No Restrictions Other Activity Instructions: Follow Physical therapy recommendations. Johnny Ndiaye MD Dec 08, 2016 15:34
[2016-12-08] MEDS ORDERED: SENN1TAB PO (15:38)
== END 2016-12-08 17:00 | disposition home or self-care (01) | DRG 300 ==
LOC: NEPE 17:59 → NEDA 20:46 → HOCB 12-07 00:14
PROVIDERS: ADMIT Internal Medicine; ATTEND Internal Medicine
DX: I82.403 Acute embolism and thrombosis of unspecified deep veins of lower extremity, bilateral (principal); C90.00 Multiple myeloma not having achieved remission; E85.9 Amyloidosis, unspecified; E11.65 Type 2 diabetes mellitus with hyperglycemia; D68.59 Other primary thrombophilia; G62.9 Polyneuropathy, unspecified; D64.9 Anemia, unspecified; E78.5 Hyperlipidemia, unspecified; G47.33 Obstructive sleep apnea (adult) (pediatric); J44.9 Chronic obstructive pulmonary disease, unspecified; K59.00 Constipation, unspecified; M85.80 Other specified disorders of bone density and structure, unspecified site; N40.0 Benign prostatic hyperplasia without lower urinary tract symptoms; Z85.118 Personal history of other malignant neoplasm of bronchus and lung; Z87.891 Personal history of nicotine dependence; Z98.1 Arthrodesis status
CPT/HCPCS: 80048; 82272; 82948; 83036; 85007; 85014; 85018; 85027; 85610; 85730; 94150; 94640; 94664; 96374; J1644; J1815; J8540